=== PATIENT | female | born 1950 | race Caucasian/White ===

== ENCOUNTER → 2016-05-25 | Outpatient (CLI) | payer OTHER ==
--- NOTE | 2016-05-25 10:58 | DX ---
PA and Lateral Chest May 25, 2016 Clinical Indications: Chest monitoring; amiodarone protocol. Comparison to the prior study May 142012. Findings: The heart remains enlarged. Postoperative changes of valvular replacement are seen. There i s mild pulmonary venous hypertension. No significant pleural effusions are identified. Hyperexpansion is seen with flattening of the hemidiaphragms. Basilar opacities bilaterally are presu mably atelectasis. Again noted is a large hiatal hernia. No interstitial fibrotic changes are suspect ed. Impressions 1. Persistent findings of congestive heart failure without pulmonary edema. 2. Hyperexpansion suggests possible COPD. 3. Basilar atelectasis. 4. Large hiatal hernia.
== END ==
LOC: FIMAGING 08:23
PROVIDERS: ATTEND Internal Medicine Cardiovascular Disease
DX: I50.9 Heart failure, unspecified (principal); I51.7 Cardiomegaly; K44.9 Diaphragmatic hernia without obstruction or gangrene; Z95.4 Presence of other heart-valve replacement
CPT/HCPCS: 84481-90

== ENCOUNTER → 2016-07-17 | Outpatient (CLI) | payer OTHER | LOC: BMCIMAGING 13:55 | PROVIDERS: ATTEND Family Medicine | DX: M25.571 Pain in right ankle and joints of right foot (principal); M79.89 Other specified soft tissue disorders ==

== ENCOUNTER → 2016-07-19 | Outpatient (CLI) | payer OTHER | LOC: BMCIMAGING 12:24 | PROVIDERS: ATTEND Family Medicine | DX: R92.0 Mammographic microcalcification found on diagnostic imaging of breast (principal) | CPT/HCPCS: G0206 ==

== ENCOUNTER → 2016-09-06 | Outpatient (CLI) | payer OTHER | LOC: BHLMT 08:30 | PROVIDERS: ATTEND Internal Medicine Interventional Cardiology | DX: I48.91 Unspecified atrial fibrillation (principal) | CPT/HCPCS: 93306-PO ==

== ENCOUNTER → 2016-09-14 | Outpatient (CLI) | payer OTHER | LOC: BHFA 09:30 | PROVIDERS: ATTEND Internal Medicine Cardiovascular Disease | DX: I47.1 Supraventricular tachycardia (principal); I50.41 Acute combined systolic (congestive) and diastolic (congestive) heart failure; I34.0 Nonrheumatic mitral (valve) insufficiency; R53.83 Other fatigue ==

== ENCOUNTER 2016-09-15 11:39 | Day surgery (SDC) | payer OTHER ==
[2016-09-15] MEDS ORDERED: BENZOCAINE UNIT DOSE SPRAY HURRICAINE MM ONE (11:53)
[2016-09-15] MEDS ORDERED: NS 500 ML IV ONE (11:53)
[2016-09-15] MEDS ORDERED: PROPOFOL 200 MG/20 ML VIAL IVP ONE (11:53)
[2016-09-15] MEDS ORDERED: fentaNYL 100 MCG/2 ML INJ IVP ONE (11:53)
[2016-09-15] MEDS ORDERED: MIDAZOLAM 2 MG/2 ML VIAL IVP ONE (11:53)
--- NOTE | 2016-09-15 12:16 | CPEKG ---
Heart Rate: 93 RR Interval: 645 QRSD Interval: 94 QT Interval: 396 QTC Interval: 493 QRS [place]: -3 T Wave [place]: 24 EKG Severity - ABNORMAL ECG - EKG Impression: ATRIAL FIBRILLATION EKG Impression: BORDERLINE PROLONGED QT INTERVAL Electronically Signed By: Juan J Treadwell 15-Sep-2016 16:23:37
[2016-09-15 12:49] LABS: INR 1.94 (0.83-1.16); PROTIME(PATIENT) 22.3 SEC (12.0-15.0)
[2016-09-15 12:50] LABS: APTT 23.6 SEC (23.0-38.0)
[2016-09-15 12:56] LABS: ANION GAP 11 mEq/L (8-16); CARBON DIOXIDE 23 mEq/l (22-31); CHLORIDE 105 mEq/L (97-110); CREATININE 0.8 mg/dL (0.6-1.0); GLOMERULAR FILTRATION RATE > 60; GLUCOSE 146 mg/dL (70-100); MAGNESIUM 1.7 mg/dL (1.6-2.3); POTASSIUM 4.7 mEq/L (3.5-5.2); SODIUM 139 mEq/L (134-144)
[2016-09-15] MEDS ORDERED: LIDOCAINE 2% 5 ML SDV ONE (13:41)
[2016-09-15] MEDS ORDERED: PROPOFOL 200 MG/20 ML VIAL ONE (13:41)
--- NOTE | 2016-09-15 14:16 | CPEKG ---
Heart Rate: 54 RR Interval: 1111 P-R Interval: 200 QRSD Interval: 96 QT Interval: 476 QTC Interval: 452 P [place]: 89 QRS [place]: -3 T Wave [place]: 10 EKG Severity - NORMAL ECG - EKG Impression: SINUS RHYTHM EKG Impression: IN COMPARISON TO PRIOR ECG, NORMAL SINUS RHYTHM HAS REPLACED ATRIAL FIBRILLATION Electronically Signed By: Juan J Treadwell 15-Sep-2016 16:24:09
--- NOTE | 2016-09-15 14:19 | CPR ---
[f rep st] NONINVASIVE CARDIAC PROCEDURE REPORT DATE OF PROCEDURE: 09/15/2016 PROCEDURE PERFORMED: Electrical cardioversion. INDICATIONS: 2:1 atrial tachycardia with increasing fatigue. CONSENT: Signed. Risks, benefits, and alternatives discussed with patient. She wishes to proceed. TECHNICAL DIFFICULTIES: None. MEDICATIONS USED: Propofol IV and fentanyl IV per Anesthesia in conjunction with transesophageal ec ho done immediately beforehand. DESCRIPTION OF PROCEDURE: A transesophageal echo done immediately beforehand demonstrated no eviden ce of clots in any of the 4 cardiac chambers or left atrial appendage. She was in atrial tachycardi a with a 2:1 block and a ventricular rate of 93 beats per minute with a blood pressure of 123/95. W ith adequate sedation and AP pads placed, she received a 250 joule synchronized shock which converte d her to sinus bradycardia at 58 beats per minute. Her post cardioversion blood pressure was 90/58. She awoke from sedation with no new neurological deficits. COMPLICATIONS: None. FINAL IMPRESSIONS: Successful cardioversion of atrial tachycardia to sinus bradycardia with 250 dima le synchronized shock. Copy requested to: Patient chart /[id number]/MODL
[2016-09-15] MEDS ORDERED: LIDOCAINE/PRILOCAINE 1 EACH CRTUBE TP ONE (15:33)
--- NOTE | 2016-09-15 16:20 | ECHO ---
[id number] + + [address] : : [facility] [address] : : [phone] + + Adult Echocardiographic Report + ---+ :Name: RACH AVENDANO LStudy Date: 09/15/2016 01:13 PM : : Hospital Admission Number: [id number] [facility]: :: 1950 Gender: Female : :Age: 66 yrs Race: WH : :Reason For Study: Eval REFUGIO : :History: New onset Atrial Fibrillation, Hx of MVR : + ---+ Left Ventricle Mildly reduced LVEF 45-50%. Right Ventricle The right ventricle is mild to moderately dilated. Atria No left atrial mass or thrombus visualized. No thrombus is detected in the left atrial appendage. The right atrium is mild to moderately dilated. Mitral Valve There is no mitral valve stenosis. There is trace mitral regurgitation. There is a bioprosthetic mitral valve. Tricuspid Valve Mild to moderate TR noted. Aortic Valve The aortic valve opens well. There is no aortic stenosis. Trace aortic regurgitation. Great Vessels The aortic root is normal size. Pericardium/Pleural There is no pericardial effusion. Conclusion A complete two-dimensional transthoracic echocardiogram was performed (2D, M-mode, Doppler and color flow Doppler). 1)Mildly reduced LV systolic function with a LVEF of 45-50%. 2)Mild-moderately enlarged RV with low normal RVEF. 3)Moderate to severe left atrial and moderate right atrial enlargement(s). 4)Trivial AI without . 5)Normal functioning BIOMVR with trivial MR. 6)Mild to moderate TR noted. 7)Probably very small left to right PFO seen on color doppler but negative IV bubble study. 8)Normal size ascending thoracic aorta (2.7cm) with no dissection flap. 9)Probably oversewn REFUGIO with no clots seen in REFUGIO or any of four cardiac chambers. Final Reading Physician: Heladio Dangelo electronically signed on 09/15/2016 04:18 PM Ordering Physician: Heladio Dangelo Performed By: Heladio Dangelo
== END 2016-09-15 16:07 | disposition home or self-care (01) ==
LOC: FCATH 11:39
PROVIDERS: ATTEND Internal Medicine Cardiovascular Disease
DX: I47.1 Supraventricular tachycardia (principal); I48.2 Chronic atrial fibrillation; E66.01 Morbid (severe) obesity due to excess calories; I10 Essential (primary) hypertension; E11.9 Type 2 diabetes mellitus without complications; Z95.2 Presence of prosthetic heart valve; Z79.01 Long term (current) use of anticoagulants
CPT/HCPCS: J2704; J3010

== ENCOUNTER → 2016-10-02 | Outpatient (CLI) | payer OTHER | LOC: BHFA 14:00 | PROVIDERS: ATTEND Internal Medicine Cardiovascular Disease | DX: R07.9 Chest pain, unspecified (principal); R06.02 Shortness of breath; I48.91 Unspecified atrial fibrillation; R94.31 Abnormal electrocardiogram [ECG] [EKG]; I50.9 Heart failure, unspecified ==

== ENCOUNTER → 2016-10-11 | Outpatient (CLI) | payer OTHER | LOC: BHFA 09:30 | PROVIDERS: ATTEND Internal Medicine Cardiovascular Disease | DX: R07.9 Chest pain, unspecified (principal); I48.91 Unspecified atrial fibrillation | CPT/HCPCS: 78452; 93017; A9500; J2785 ==

== ENCOUNTER → 2016-12-13 | Outpatient (CLI) | payer OTHER | LOC: BHFA 15:45 | PROVIDERS: ATTEND Internal Medicine Cardiovascular Disease | DX: I50.32 Chronic diastolic (congestive) heart failure (principal); R06.02 Shortness of breath; Z95.2 Presence of prosthetic heart valve ==

== ENCOUNTER → 2017-01-08 | Outpatient (CLI) | payer OTHER ==
[~2017-01-08] MED LIST: IOPAMIDOL (ISOVUE 370) 100 ML BTL IV ONE
== END ==
LOC: FIMAGING 07:53
PROVIDERS: ATTEND Internal Medicine Cardiovascular Disease
DX: I47.1 Supraventricular tachycardia (principal); I48.91 Unspecified atrial fibrillation; I25.10 Atherosclerotic heart disease of native coronary artery without angina pectoris; R91.8 Other nonspecific abnormal finding of lung field; K44.9 Diaphragmatic hernia without obstruction or gangrene; Z95.4 Presence of other heart-valve replacement
CPT/HCPCS: 75572; Q9967

== ENCOUNTER 2017-01-09 06:39 | Observation (INO) | payer OTHER ==
[2017-01-09] MEDS ORDERED: NS 1,000 ML IV ONE (06:45)
[2017-01-09] MEDS ORDERED: MIDAZOLAM 2 MG/2 ML VIAL IVP ONE ×2 (06:45→08:30)
--- NOTE | 2017-01-09 07:15 | CPEKG ---
Heart Rate: 68 RR Interval: 882 P-R Interval: 180 QRSD Interval: 90 QT Interval: 424 QTC Interval: 451 P [place]: 65 QRS [place]: -7 T Wave [place]: 72 EKG Severity - BORDERLINE ECG - EKG Impression: SINUS RHYTHM EKG Impression: BORDERLINE T WAVE ABNORMALITIES Electronically Signed By: Moi Velasquez 09-Jan-2017 08:20:13
[2017-01-09] MEDS ORDERED: HEPARIN/DEXTROSE 25,000 UNIT/500 ML BAG ONE (07:35)
[2017-01-09] MEDS ORDERED: LIDOCAINE 1% 300 MG/30 ML SDV ONE (07:35)
[2017-01-09] MEDS ORDERED: HEPARIN 10,000 UNIT/10 ML MDV ONE (07:35)
[2017-01-09] MEDS ORDERED: BUPIVACAINE 0.5% 30 ML SDV ONE (07:35)
[2017-01-09 07:49] LABS: INR 1.78 (0.83-1.16); PROTIME(PATIENT) 20.8 SEC (12.0-15.0)
[2017-01-09 07:50] LABS: APTT 26.6 SEC (23.0-38.0)
[2017-01-09] MEDS ORDERED: IOPAMIDOL (ISOVUE-300) 100 ML BTL ONE (07:57)
[2017-01-09 08:01] LABS: ANION GAP 14 mEq/L (8-16); CALCIUM 9.5 mg/dL (8.5-10.4); CARBON DIOXIDE 22 mEq/l (22-31); CHLORIDE 105 mEq/L (97-110); CREATININE 0.8 mg/dL (0.6-1.0); GLOMERULAR FILTRATION RATE > 60; GLUCOSE 165 mg/dL (70-100); MAGNESIUM 1.7 mg/dL (1.6-2.3); POTASSIUM 3.9 mEq/L (3.5-5.2); SODIUM 141 mEq/L (134-144)
--- NOTE | 2017-01-09 08:24 | PDHPUP ---
History & Physical Update H&P update statement: This history and physical update is based on an assessment of the patient which was completed after admission or registration (within 24 hours), but prior to the surgery/procedure.
[2017-01-09 08:30] VITALS: TEMP 97.7
--- NOTE | 2017-01-09 08:30 | PDANEPAE ---
ANE History of Present Illness 66 yo for eps/ablation ANE Past Medical History - Cardiovascular History Hx Hypertension: Yes Hx Arrhythmias: Yes Hx Chest Pain: Yes Hx Coronary Artery / Peripheral Vascular Disease: No Hx CHF / Valvular Disease: Yes Hx Palpitations: No - Pulmonary History Hx COPD: No Hx Asthma/Reactive Airway Disease: No Hx Recent Upper Respiratory Infection: No Hx Oxygen in Use at Home: Yes Hx Sleep Apnea: Yes - Endocrine History Hx Diabetes: Yes - Chronic Pain History Chronic Pain: No ANE Review of Systems - Exercise capacity METS (RN): 2 METS ANE Patient History - Allergies Allergies/Adverse Reactions: No Known Allergies Allergy (Unverified 04/24/15 20:47) - Home Medications Home medications: home medication list seen and reviewed Home Medications: Estradiol [Estradiol 1 MG (*)] 1 mg PO MWF 04/19/15 [Last Taken 01/08/17] Carvedilol [Coreg (*)] 12.5 mg PO BID 09/15/16 [Last Taken 01/08/17 21:00] Warfarin Sodium [Coumadin 2.5MG (*)] 2.5 mg PO TUTH@16 09/15/16 [Last Taken ] Warfarin Sodium [Coumadin 5MG (*)] 5 mg PO SUMOWEFRSA@16 09/15/16 [Last Taken ] Acetaminophen [Tylenol ES 500 mg (*)] 1,500 mg PO Q6HRS PRN 01/09/17 [Last Taken Unknown] Acetamn/Diphenhydramine 500/25 [Tylenol PM (*)] 1 each PO HS PRN 01/09/17 [Last Taken Unknown] Amiodarone HCl [Pacerone (*)] 200 mg PO DAILY 01/09/17 [Last Taken 01/02/17] Furosemide [Lasix 40 MG (*)] 40 mg PO DAILY PRN 01/09/17 [Last Taken 01/08/17] Lisinopril [Zestril 5 mg (*)] 5 mg PO DAILY 01/09/17 [Last Taken 01/08/17] metFORMIN HCL [Glucophage 500 mg (*)] 1,000 mg PO DAILY 01/09/17 [Last Taken ] metFORMIN HCL [Glucophage 500 mg (*)] 500 mg PO DAILY18 01/09/17 [Last Taken ] - NPO status NPO Status: no food or drink >8 hours - Smoking Hx Smoking Status: Never smoked ANE Labs/Vital Signs - Labs Result Diagrams: 01/09/17 07:18 01/09/17 07:18 - Vital Signs Height: 5 ft 4.96 in Weight: 115.7 kg ANE Physical Exam - Airway Neck exam: FROM Mallampati Score: Class 2 Mouth exam: normal dental/mouth exam - Pulmonary Pulmonary: reduced air movement - Cardiovascular Cardiovascular: regular rate and rhythym - ASA Status ASA Status: III ANE Anesthesia Plan Anesthesia Plan: general endotracheal anesthesia Lines/Monitors: ANGEL
[2017-01-09] MEDS ORDERED: fentaNYL 100 MCG/2 ML INJ ONE (08:41)
[2017-01-09] MEDS ORDERED: REMIFENTANIL HCL 1 MG VIAL ONE ×2 (08:41→10:37)
[2017-01-09] MEDS ORDERED: PROPOFOL/EMULSION 500 MG/50 ML BOTTLE IV ONE ×2 (08:42→10:37)
[2017-01-09 09:59] LABS: % IMMATURE GRANULYOCYTES 0.2 % (0.0-1.1); ABSOLUTE IMMATURE GRANULOCYTES 0.01 10^3/uL (0.00-0.10); ADD DIFF? NO; ADD MORPH? NO; ADD SCAN? NO; ATYPICAL LYMPHOCYTE FLAG 0 (0-99); FRAGMENT RBC FLAG 0 (0-99); HEMATOCRIT 37.1 % (38.0-47.0); HEMOGLOBIN 12.4 g/dL (12.6-16.3); LEFT SHIFT FLG 0 (0-99); LIPEMIA HEMOLYSIS FLAG 80 (0-99); MEAN CELL HEMOGLOBIN 30.2 pg (27.9-34.1); MEAN CELL HEMOGLOBIN CONCENTR. 33.4 g/dL (32.4-36.7); MEAN CELL VOLUME 90.3 fL (81.5-99.8); MEAN PLATELET VOLUME 10.9 fL (8.7-11.7); PLATELET CLUMPS FLAG 10 (0-99); PLATELET COUNT 128 10^3/uL (150-400); RED BLOOD CELL COUNT 4.11 10^6/uL (4.18-5.33); RED CELL DISTRIBUTION WIDTH 14.3 % (11.5-15.2)
[2017-01-09] MEDS ORDERED: PROTAMINE SULFATE 50 MG/5 ML VIAL IVP ONE (12:33)
[2017-01-09] MEDS ORDERED: SUGAMMADEX SODIUM 200 MG/2 ML VIAL IVP ONE (12:35)
[2017-01-09] MEDS ORDERED: ROCURONIUM 100 MG/10 ML VIAL ONE (12:35)
[2017-01-09] MEDS ORDERED: OXYCODONE/APAP 5/325 TAB PO PRN (12:40)
[2017-01-09] MEDS ORDERED: ACETAMINOPHEN 325 MG TAB PO PRN (12:40)
[2017-01-09] MEDS ORDERED: ONDANSETRON 4 MG/2 ML VIAL IVP PRN (12:40)
[2017-01-09] MEDS ORDERED: FUROSEMIDE 40 MG TAB PO PRN (12:42)
[2017-01-09] MEDS ORDERED: D50W 25 GM/50 ML SYR IVP PRN (13:33)
[2017-01-09] MEDS ORDERED: D10W 250 ML PRN HYPOGLYCEMIA IV (14:00)
--- NOTE | 2017-01-09 14:17 | GCON ---
[f rep st] CONSULTATION HISTORY OF PRESENT ILLNESS: Patient examined postoperatively after receiving an ablation. The patient is a 66-year-old white female with extensive past medical history, including arthritis, coronary artery disease, mitral valve repair with a bovine valve back in 2007, tricuspid valve repai r, hyperlipidemia, morbid obesity, hypertension, diabetes, and fibromyalgia. She is examined postop eratively after receiving a cardiac ablation. Patient somewhat groggy from anesthetic. I discussed with the patient. She states that she is not currently in any pain. She any denies shortness of b reath, cough, or productive sputum. There is no fever or night sweats. Currently, she is resting c omfortably. PAST MEDICAL HISTORY: Again, significant for atrial fibrillation, arthritis, coronary artery diseas e, hyperlipidemia, morbid obesity, hypertension, diabetes, and fibromyalgia. PAST SURGICAL HISTORY: Cholecystectomy, bilateral total knee arthroplasties, mitral valve replaceme nt, hysterectomy, and a tricuspid valve repair. ALLERGIES: None known to medications. SOCIAL HISTORY: No history of tobacco use. Infrequent alcohol use. PHYSICAL EXAMINATION: VITAL SIGNS: Blood pressure is 124/73, pulse is 53 respirations are 13. She is afebrile. Oxygen saturation 95% on supplemental oxygen. GENERAL: A morbidly obese but very pl easant elderly white female who is resting comfortably in no acute distress. HEENT: PERRLA. EOMI. Throat shows no erythema or tonsillar hypertrophy. NECK: Supple. There is no cervical adenopath y. HEART: Regular rate and rhythm with a 2/6 systolic murmur at left sternal border without radiat ion. LUNGS: Diminished breath sounds but no wheeze. ABDOMEN: Soft, nontender. Bowel sounds pres ent in all 4 quadrants. EXTREMITIES: No clubbing, cyanosis, or edema. LABORATORIES: White count 4.4, hemoglobin 12, hematocrit 37, and platelet count is 128. INR is 1.7 8. Sodium 141, potassium 3.9, chloride 105, CO2 22, BUN 22, creatinine 0.8, and glucose 165. IMPRESSION: 1. Status post cardiac ablation. 2. History of atrial fibrillation. 3. Morbid obesity. 4. Obstructive sleep apnea. 5. Hyperlipidemia. 6. Hypertension. 7. Diabetes. RECOMMENDATIONS: 1. Adequate pain control. 2. DVT and PE prophylaxis. 3. Stress ulcer prophylaxis. 4. Aggressive blood sugar control. /[id number]/MODL
--- NOTE | 2017-01-09 14:23 | CPEKG ---
Heart Rate: 104 RR Interval: 577 QRSD Interval: 92 QT Interval: 344 QTC Interval: 453 QRS [place]: 23 T Wave [place]: 110 EKG Severity - ABNORMAL ECG - EKG Impression: JUNCTIONAL TACHYCARDIA EKG Impression: LOW VOLTAGE IN FRONTAL LEADS EKG Impression: NONSPECIFIC T ABNORMALITIES, LATERAL LEADS Electronically Signed By: Shlomo Reis 09-Jan-2017 14:51:33
--- NOTE | 2017-01-09 14:45 | POSTANESTH ---
Post Anesthetic Evaluation Cardiovascular Status: Normal, Stable Respiratory Status: Normal, Stable, Tx Decrease in SpO2 Level of Consciousness/Mental Status: Can Participate in Eval Pain Control: Adequate, Prn Tx Ordered Nausea/Vomiting Control: Adequate, Prn Tx Ordered
[2017-01-09 15:10] LABS: ANION GAP 10 mEq/L (8-16); CALCIUM 9.7 mg/dL (8.5-10.4); CARBON DIOXIDE 22 mEq/l (22-31); CHLORIDE 108 mEq/L (97-110); CREATININE 0.7 mg/dL (0.6-1.0); GLOMERULAR FILTRATION RATE > 60; GLUCOSE 171 mg/dL (70-100); MAGNESIUM 1.5 mg/dL (1.6-2.3); POTASSIUM 4.1 mEq/L (3.5-5.2); SODIUM 140 mEq/L (134-144)
[2017-01-09] MEDS ORDERED: PROTOCOL MAGNESIUM 1 DOSE IV PRN (15:27)
[2017-01-09] MEDS ORDERED: MAGNESIUM SULF 1 GM/DEXTROSE 100 ML IV ONE (15:28)
[2017-01-09] MEDS ORDERED: WARFARIN SODIUM 2.5 MG TAB PO SCH (16:00)
--- NOTE | 2017-01-09 16:01 | ASMTCASEMG ---
Living Arrangements What is your living arrangement? Who do you live Answers: With Spouse with? Case Management Evaluation Functional: ADL / IADL Performance Deficits Due Answers: Chronic Illness to: Mobility Issues Discharge Plan Comments Coordination Status Comments Notes: 66yo female admitted for Afib/Ablation. Pt has a Hx of Afib, CAL, HLD, HTN, DM, CAD, Fibromyalgia, TVR, MVR, Obesity. Pt lives w/her . Usually people who come in for Ablations are able to return home the next day. Pt has not yet been out of bed, unable to assess her needs at this time. Date Signed: 01/09/2017 04:00 PM Electronically Signed By:Zandra Pollack
[2017-01-09 16:06] VITALS: RESP 26; O2SAT 95
[2017-01-09] MEDS ORDERED: ENOXAPARIN 100 MG/ML SYR SC SCH (19:00)
[2017-01-09] MEDS: ENOXAPARIN 120 MG/0.8 ML SYR SC SCH (20:02)
[2017-01-09] MEDS: CARVEDILOL 6.25 MG TAB PO SCH (20:03)
[2017-01-09] MEDS: INSULIN REGULAR HUMAN 100 UNIT/ML SC SCH ×3 (20:03→22:34)
[2017-01-10 05:10] LABS: % IMMATURE GRANULYOCYTES 0.4 % (0.0-1.1); ABSOLUTE IMMATURE GRANULOCYTES 0.04 10^3/uL (0.00-0.10); ADD DIFF? NO; ADD MORPH? NO; ADD SCAN? NO; ATYPICAL LYMPHOCYTE FLAG 0 (0-99); FRAGMENT RBC FLAG 0 (0-99); HEMATOCRIT 39.8 % (38.0-47.0); HEMOGLOBIN 13.3 g/dL (12.6-16.3); LEFT SHIFT FLG 0 (0-99); LIPEMIA HEMOLYSIS FLAG 80 (0-99); MEAN CELL HEMOGLOBIN 30.5 pg (27.9-34.1); MEAN CELL HEMOGLOBIN CONCENTR. 33.4 g/dL (32.4-36.7); MEAN CELL VOLUME 91.3 fL (81.5-99.8); PLATELET CLUMPS FLAG 20 (0-99); PLATELET COUNT 139 10^3/uL (150-400); RED BLOOD CELL COUNT 4.36 10^6/uL (4.18-5.33); RED CELL DISTRIBUTION WIDTH 14.2 % (11.5-15.2)
[2017-01-10 05:19] LABS: INR 1.84 (0.83-1.16); PROTIME(PATIENT) 21.3 SEC (12.0-15.0)
[2017-01-10 05:26] LABS: ANION GAP 9 mEq/L (8-16); CALCIUM 9.4 mg/dL (8.5-10.4); CARBON DIOXIDE 24 mEq/l (22-31); CHLORIDE 104 mEq/L (97-110); CREATININE 0.8 mg/dL (0.6-1.0); GLOMERULAR FILTRATION RATE > 60; GLUCOSE 157 mg/dL (70-100); MAGNESIUM 1.7 mg/dL (1.6-2.3); POTASSIUM 4.1 mEq/L (3.5-5.2); SODIUM 137 mEq/L (134-144)
[2017-01-10 05:35] LABS: TROPONIN I 0.379 ng/mL (0.000-0.034)
[2017-01-10 05:42] LABS: CK-MB INTERPRETATION POSITIVE (NEGATIVE); CREATINE KINASE-MB FRACTION 3.77 ng/mL (0.00-3.19)
[2017-01-10] MEDS ORDERED: LOPERAMIDE HCL 2 MG CAP PO ONE (07:15)
[2017-01-10] MEDS ORDERED: ESTRADIOL 1 MG TAB PO SCH (08:00)
[2017-01-10] MEDS: ENOXAPARIN 120 MG/0.8 ML SYR SC SCH (08:07)
[2017-01-10] MEDS: CARVEDILOL 6.25 MG TAB PO SCH (08:07)
[2017-01-10 08:08] VITALS: BP 98/67; PULSE 59
[2017-01-10] MEDS: INSULIN REGULAR HUMAN 100 UNIT/ML SC SCH ×2 (08:08→12:33)
[2017-01-10] MEDS ORDERED: MAGNESIUM SULF 1 GM/DEXTROSE 100 ML IV ONE (08:33)
--- NOTE | 2017-01-10 08:53 | PDINTPN ---
[employer] Progress Note Assessment/Plan: Assessment: * Atrial fib * Status post ablation * Diabetes * Hypertension * Obstructive sleep apnea Plan: Continue aggressive blood sugar control Anticipate discharge home soon Subjective: Resting comfortably. Objective: Vital Signs Temp Pulse Resp BP Pulse Ox 36.5 C 59 L 26 H 98/67 L 95 01/09/17 07:17 01/10/17 08:07 01/09/17 16:04 01/10/17 08:07 01/09/17 16:04 Laboratory Results 01/10/17 04:50 01/10/17 04:50 01/09/17 01/10/17 01/11/17 05:59 05:59 05:59 Intake Total 2600 Output Total 1100 Balance 1500 PT 21.3 SEC (12.0-15.0) H 01/10/17 04:50 INR 1.84 (0.83-1.16) H 01/10/17 04:50 Physical Exam - Physical Exam General Appearance: alert, no apparent distress EENT: PERRL/EOMI, normal ENT inspection, pharynx normal, TMs normal Neck: non-tender, full range of motion, supple, normal inspection Respiratory: chest non-tender, lungs clear, normal breath sounds Cardiac/Chest: normal peripheral pulses, regular rate, rhythm Abdomen: normal bowel sounds, non-tender, soft Pelvic Exam: deferred Rectal: deferred ICD10 Worksheet Patient Problems: Problems Problem Status Onset Chronic Disease [facility]/Transitional Care Acute Gastric ulcer with hemorrhage but without obstruction Acute
[2017-01-10] MEDS ORDERED: LISINOPRIL 5 MG TAB PO SCH (09:00)
[2017-01-10] MEDS ORDERED: AMIODARONE HCL 200 MG TAB PO SCH (09:00)
--- NOTE | 2017-01-10 09:35 | CPEKG ---
Heart Rate: 67 RR Interval: 896 P-R Interval: 210 QRSD Interval: 92 QT Interval: 460 QTC Interval: 486 P [place]: 0 QRS [place]: -8 T Wave [place]: 73 EKG Severity - BORDERLINE ECG - EKG Impression: SINUS RHYTHM EKG Impression: BORDERLINE T WAVE ABNORMALITIES Electronically Signed By: Moi Velasquez 10-Jan-2017 10:59:28
--- NOTE | 2017-01-10 11:32 | ECHO ---
[id number] [id number] + + [address] : : [place] [address] : : [phone] + + Adult Echocardiographic Report + ---+ :Name: RACH AVENDANO LStudy Date: 01/10/2017 08:36 AM : : Hospital Admission Number: [id number] Location: 256: :: 1950 Gender: Female Height: 65 in : :Age: 66 yrs Race: WH Weight: 255 lb : :Reason For Study: F/U EP : : BSA: 2.2 meters2 : :History: s/p EP h/o MVR : + ---+ MMode/2D Measurements \T\ Calculations IVSd: 0.99 cm LVIDd: 4.6 cm FS: 26.7 % Ao root diam: LVPWd: 0.99 cm LVIDs: 3.4 cm EDV(Teich): 3.0 cm 96.7 ml ESV(Teich): 46.1 ml EF(Teich): 52.3 % LVLd ap4: 8.7 cm SV(MOD-sp4): EDV(MOD-sp4): 82.0 ml 122.0 ml LVLs ap4: 7.2 cm ESV(MOD-sp4): 40.0 ml EF(MOD-sp4): 67.2 % Normal Measurement Values: + + :LVIDd (3.5-5.7cm) IVSd (0.6-1.1cm) LVPWd (0.6-1.1cm) Aortic Root (2.0-3.7cm)Left Atrium (1.5-4.0cm): :LV Vol(d) (76-115ml) LV Vol(s) (29-48ml) Ejec Fraction (50-65%)PV Carlos (0.6- 1.2m/s) TV Carlos (0.4-1.0m/s) : :MV E Carlos (0.8-1.0m/s)MV A Carlos (0.3-1.0m/s)LVOT Carlos (0.7-1.2m/s) Asc Ao Carlos ( 0.9-1.8m/s) : + + Doppler Measurements \T\ Calculations MV V2 max: MV P1/2t max carlso: Ao V2 max: LV V1 max: 194.9 cm/sec 194.9 cm/sec 170.6 cm/sec 110.6 cm/sec MV max PG: MV P1/2t: 111.4 msec Ao max PG: LV V1 max P.2 mmHg MVA(P1/2t): 2.0 cm2 11.6 mmHg 4.9 mmHg MV V2 mean: MV dec slope: 103.7 cm/sec MV mean P.4 cm/sec2 5.4 mmHg MV V2 VTI: 61.4 cm PA V2 max: TR max carlos: 100.4 cm/sec 314.9 cm/sec PA max PG: TR max P.7 mmHg 4.0 mmHg RAP systole: 10.0 mmHg RVSP(TR): 49.7 mmHg Left Ventricle The left ventricle is normal in size. There is normal left ventricular wall thickness. Left ventricular systolic function is low normal. Ejection Fraction = 50-55%. Right Ventricle Right ventricle is dilated wtih reduced function. Atria The left atrium is moderately dilated. The right atrium is moderately dilated. A dilated inferior vena cava suggests increased right atrial pressure. There was no clot seen in the IVC. Mitral Valve There is no mitral regurgitation noted. There is a prosthetic mitral valve. Mean gradient across the MVR 5mmHg. Tricuspid Valve The tricuspid valve is normal in structure and function. There is moderate tricuspid regurgitation. Right ventricular systolic pressure is 50mmHg. There is Doppler evidence for moderate pulmonary hypertension. Aortic Valve The aortic valve is trileaflet. There is no aortic stenosis. Trace to mild aortic regurgitation. Pulmonic Valve The pulmonic valve is not well visualized. Great Vessels The aortic root is normal size. Pericardium/Pleural There is no pericardial effusion. Conclusion A two-dimensional transthoracic echocardiogram with M-mode and Doppler was performed. (1) Left ventricular systolic ejection fraction was low normal (50-55%) - grossly normal wall motion (2) No left ventricular hypertrophy (3) Diastolic function was not assessed (4) Mild dilation of the right ventricular chamber with reduced function noted (5) Moderate biatrial dilation (6) Prosthetic mitral valve without appreciable regurgitation - mean gradient was 5 mm Hg (7) Trileaflet aortic valve with physiologic insufficiency, and no sclerosis (8) Moderate tricuspid regurgitation - RVSP was estimated to be 50 mm Hg (9) Poor visualization of the pulmonic valve (10) In comparison to prior echocardiogram there has been improvement in LVEF (from 45% to 50-55%) and unchanged gradient through the mitral valve. Final Reading Physician: Danuta Darnell signed on 01/10/2017 11:29 AM Ordering Physician: Moi Velasquez Performed By: Sanjana Maguire
--- NOTE | 2017-01-10 13:34 | EPPROC ---
Electrophysiology Procedure Note: PROCEDURE DATE 01/09/2017 ELECTROPHYSIOLOGIC STUDY AND CATHETER MEDIATED ABLATION FOR PERSISTENT ATRIAL FIBRILLATION Procedures performed: 42719-77 EP evaluation with RA/RV/LA pace/record, with arrhythmia induction 69216-25 EP evaluation with RA/RV pace record, insert/reposition catheter, with arrhythmia induction 53619 Atrial fibrillation ablation 38428 3D mapping Intracardiac echocardiogram Transseptal puncture Fluoroscopy INDICATION: Persistent atrial fibrillation Prior surgical PV isolation with MV replacement TV repair PROCEDURE: The patient arrived in the Electrophysiology Laboratory in the fasting state. The right groin, left groin and right infraclavicular area were prepped and draped in the usual sterile fashion. Anesthesiologist administered general anesthesia Dr. Trace Baldwin . All catheters were placed percutaneously using the Seldinger technique and advanced into position under fluoroscopic guidance. One #7 Eritrean deflectable octapolar electrode catheter was placed in the His-bundle position via the left femoral vein (2mm spacing, IVC electrode for unipolar recordings). This catheter was placed in the coronary sinus after transseptal puncture. One #8 [place] AcuNaV ultrasound catheter was placed in the left femoral vein and advanced into the right atrium. One #4 [place]an sheath was inserted into the left femoral artery via percutaneous technique and used for continuous arterial blood pressure monitoring and intermittent ACT determination. Programmed stimulation was performed from the right atrium, left atrium (CS) and right ventricle. There was no evidence of AV accessory pathway. Intracardiac echo evaluation of the left atrium and pulmonary veins was performed. Baseline ACT was drawn and heparin bolus was administered and heparin drip was started prior to transseptal puncture. ACT was checked every 15 minutes and maintained in the range of 350-400 seconds. One SL1 sheaths (8.5 Fr ) was inserted into the right femoral vein and advanced into the right atrium. Transseptal puncture was performed under intracardiac ultrasound, fluoroscopic and hemodynamic guidance placing the sheath into the left atrium. Walnut RF needle (C0 curve) was used. The mean left atrial pressure was 22 mmHg. At baseline, the rhythm was sinus rhythm. Conventional pulmonary vein angiography was done using SL1 sheaths. PV anatomy : LSPV, LIPV, RSPV, RIPV. High resolution voltage map of the left atrium and all 4 PV was performed using Pentaray catheter. RSPV and RIPV were isolated from surgical ablation. LSPV and LIPV were not isolated. One #8 [place] quadrapolar electrode catheter (1mm-5mm-2mm spacing) with saline irrigated 3.5mm tip electrode (BiosVerimed ST-SF catheter) and location sensor for the [employer] 3D mapping system was inserted through the transseptal sheath and positioned outside the orifice of the left superior pulmonary vein. An esophageal temperature probe (12 electrode, Circa) was placed by the anesthesiologist at the beginning of the procedure. Esophageal temperature was monitored continuously and RF ablation was interrupted if there was a temperature rise >0.5 C. The esophagus was closer to the LSPV. The antrum of the left pulmonary veins was then isolated by radiofrequency applications (power 20-25 W). Ablation needed to be performed both anterior and posterior to LSPV and LIPV. Bidirectional (entrance and exit) conduction block was confirmed. Repeat high resolution mapping done using Pentaray catheter confirmed LSPV and LIPV were isolated. Left AT, CL 300 was induced post AFIB ablation. We began mapping left AT but it degenerated into AFIB. Cardioversion was done x 2 and attempt to induce and map left AT was done but in each instance AT degenerated into AFIB. Further mapping and ablation was not done. The catheters were withdrawn. SL1 sheaths were changed to 9 Fr short sheaths. Protamine was given. The sheaths were removed and manual pressure was used for hemostasis. The patient was recovered from anesthesia. There were no complications. CONCLUSIONS: 1. Persistent atrial fibrillation. 2. Prior mitral valve replacement and surgical PV isolation. 3. Successful pulmonary vein re-isolation procedure (left superior and left inferior vein antrum) 4. Left AT could not be targeted for mapping and ablation. 5. No apparent complications. Patient Problems: Problems Problem Status Onset Atrial fibrillation Acute Gastric ulcer with hemorrhage but without obstruction Acute Chronic Disease Mgmt/Transitional Care Acute
[2017-01-10] MEDS ORDERED: WARFARIN SODIUM 5 MG TAB PO SCH (16:00)
--- NOTE | 2017-01-10 23:53 | GDS ---
[f rep st] DISCHARGE SUMMARY DISCHARGE DIAGNOSES: 1. Paroxysmal atrial fibrillation, status post ablation. 2. Atrial tachycardia. 3. Diabetes. 4. Hypertension. 5. Nonobstructive coronary artery disease. 6. Valvular heart disease. 7. Obstructive sleep apnea. BRIEF HISTORY: This is a 66-year-old woman who was referred to Dr. Velasquez by Dr. Dangelo for treatment of paroxysmal atrial fibrillation and atrial tachycardia. She has a history of sternotomy with bioprosthetic mitral valve replacement as well as a tricuspid valve repair and a maze in 2008. She presented in atrial fibrillation with cardiomyopathy in 2014. She continued to have PAF while taking amiodarone regularly. She had mild to moderate CAD by angiogram in April 2015. Echocardiogram in August of 2016 demonstrated ejection fraction of 43%. HOSPITAL COURSE: Dr. Velasquez performed an atrial fibrillation ablation by isolating the left pulmonary veins. Her atrium are scarred from prior maze procedure. She did have a left atrial tachycardia and atrial fibrillation post ablation. She did convert to sinus rhythm during the night. She did have a number of episodes of diarrhea during the night requiring her to get up and out of bed. She has not had any bleeding at her groin site. She denies any kind of chest pain, pressure, tightness or shortness of breath. She is currently feeling well and ready to go home. TESTING DONE: On 01/08/2017, she had a chest CT that demonstrated scattered benign pulmonary nodules that had been seen previously and are stable. Coronary artery disease in the LAD noted previously. A large hiatal hernia containing the majority of the stomach that had also been noted previously. No change from prior CT. Echocardiogram today demonstrated LVEF of 50% to 55%, moderate biatrial dilatation and a prosthetic mitral valve without any significant regurgitation. There is moderate tricuspid regurgitation. Consults: She was seen by Dr. Arredondo of pulmonary service. LABORATORY: WBC is 9.12, hemoglobin 13.3, hematocrit 39.8, platelets 139. PT 21.3. INR is 1.84. Sodium 137, potassium 4.1, chloride 104, bicarb 24, BUN 18 , creatinine 0.8 and glucose 151. Magnesium 1.7. CK 58. CK-MB fraction 3.77. CK-MB percent 6.5. Troponin is 0.379, which is elevated and to be expected post ablation. PHYSICAL EXAMINATION: VITAL SIGNS: Blood pressure is 98/67, pulse is 59, respirations 16. GENERAL: She is alert and oriented, sitting up in bed, in no acute distress. CARDIAC: Regular rate and rhythm with a 1/6 systolic ejection murmur at the left sternal border. LUNGS: Bilateral crackles. ABDOMEN: Soft and nontender. EXTREMITIES: Warm. There is bilateral discoloration that has been chronic. Mild lower extremity edema. Bilateral +2 pedal pulses. DISCHARGE INSTRUCTIONS: Activity restrictions were discussed with the patient. She received written instructions. Of note, she is not to horseback ride for [address] Velasquez. She was also instructed to use the incentive spirometer regularly for the next few days. MEDICATIONS: Please see medication discharge reconciliation. Of note, she will take a Lovenox shot with her warfarin tonight. She has an INR scheduled at 7 in the morning. She can stop Lovenox when her INR is 2 or greater, which will likely be tomorrow. She was instructed to hold metformin until Sunday morning. She is also to take Nexium 20 mg daily for 6 weeks post ablation. FOLLOWUP: She has a followup 01/24/2017, with Dr. Velasquez at 4 p.m. /[id number]/MODL MTDD
== END 2017-01-10 12:59 | disposition home or self-care (01) ==
LOC: FCATH 06:39 → F2N 12:40
PROVIDERS: ADMIT Internal Medicine Cardiovascular Disease; ATTEND Internal Medicine Cardiovascular Disease
DX: I48.1 Persistent atrial fibrillation (principal); I47.1 Supraventricular tachycardia; R06.02 Shortness of breath; E11.9 Type 2 diabetes mellitus without complications; I11.0 Hypertensive heart disease with heart failure; I25.10 Atherosclerotic heart disease of native coronary artery without angina pectoris; G47.33 Obstructive sleep apnea (adult) (pediatric); I42.9 Cardiomyopathy, unspecified; I50.32 Chronic diastolic (congestive) heart failure; E78.5 Hyperlipidemia, unspecified; R19.7 Diarrhea, unspecified; R91.1 Solitary pulmonary nodule; K44.9 Diaphragmatic hernia without obstruction or gangrene; I36.1 Nonrheumatic tricuspid (valve) insufficiency; M79.7 Fibromyalgia; Z95.2 Presence of prosthetic heart valve; E66.2 Morbid (severe) obesity with alveolar hypoventilation; Z68.41 Body mass index [BMI] 40.0-44.9, adult; Z96.653 Presence of artificial knee joint, bilateral; Z79.01 Long term (current) use of anticoagulants
CPT/HCPCS: 93005; 93306; 93613; 93656; 93662; C1731; C1732; C1759; C1893; J1644; J1650; J1815; J2250; J2704; J2720; J3010; J3475; Q9967

== ENCOUNTER 2017-01-11 07:17 | Inpatient (IN) | payer OTHER ==
[2017-01-11 08:06] LABS: % IMMATURE GRANULYOCYTES 0.4 % (0.0-1.1); ABSOLUTE IMMATURE GRANULOCYTES 0.03 10^3/uL (0.00-0.10); ADD DIFF? NO; ADD MORPH? NO; ADD SCAN? NO; ATYPICAL LYMPHOCYTE FLAG 0 (0-99); FRAGMENT RBC FLAG 0 (0-99); HEMATOCRIT 40.8 % (38.0-47.0); HEMOGLOBIN 13.6 g/dL (12.6-16.3); LEFT SHIFT FLG 0 (0-99); LIPEMIA HEMOLYSIS FLAG 80 (0-99); MEAN CELL HEMOGLOBIN 30.2 pg (27.9-34.1); MEAN CELL HEMOGLOBIN CONCENTR. 33.3 g/dL (32.4-36.7); MEAN CELL VOLUME 90.7 fL (81.5-99.8); MEAN PLATELET VOLUME 10.6 fL (8.7-11.7); PLATELET CLUMPS FLAG 20 (0-99); PLATELET COUNT 147 10^3/uL (150-400); RED CELL DISTRIBUTION WIDTH 14.6 % (11.5-15.2)
[2017-01-11] MEDS ORDERED: ONDANSETRON 4 MG/2 ML VIAL IVP ONE (08:08)
[2017-01-11] MEDS ORDERED: NS 1,000 ML IV ONE (08:08)
--- NOTE | 2017-01-11 08:09 | EDPHY ---
H & P Stated Complaint: ablation 2 days ago-on lovenox, having bloody diarrhea and nausea Time Seen by Provider: 01/11/17 08:00 HPI/ROS: Chief Complaint: Diarrhea, abdominal cramping HPI: 66-year-old woman who is 2 days status post cardiac ablation for atrial fibrillation by Dr. Velasquez. Follow-up lesions patient started developing diarrhea. She has been having diarrhea for the last 2 days. She had pneumonia in yesterday morning was discharged home after that. She is continuing to have some crampy abdominal pain. She also having some nausea but no vomiting. Cramping associated prior to her episodes of diarrhea. This morning she noticed that there is some pink color to the liquid. Has not had any vikas blood or clots. Does have a history of GI bleeding in the past and has required transfusions before. She states that this morning she has had 5 episodes of diarrhea between 2 and 5. Continues to have cramping prior to these and is relieved with that. No rectal pain. No fevers or chills. No chest pain or shortness of breath. She has been able to eat since her discharge. PMH: ROS: 10 point Review of Systems is negative except as noted in the HPI. Past medical history: Atrial fibrillation, type 2 diabetes, GI bleeding in the past Social History: No smoking, no alcohol, no recreational drug use Family History: non-contributory Physical Exam: Gen: Awake, Alert, No Distress HEENT: Nose: no rhinorrhea Eyes: PERRLA, EOMI Mouth: Moist mucosa Neck: Supple, no JVD Chest: nontender, lungs clear to auscultation Heart: S1, S2 normal, no murmur Abd: Soft, non-tender, no guarding Back: no CVA tenderness, no midline tenderness Ext: no edema, non-tender Skin: no rash Neuro: CN II-XII intact, Sensation grossly intact, Strength 5/5 in bilateral upper and lower extremities - Personal History Tetanus Vaccine Date: < 5 years - Medical/Surgical History Hx Asthma: No Hx Chronic Respiratory Disease: No Hx Diabetes: Yes Hx Cardiac Disease: Yes Hx Renal Disease: No Hx Cirrhosis: No Hx Alcoholism: No Hx HIV/AIDS: No Hx Splenectomy or Spleen Trauma: No Other PMH: afib, arthritis, CAD, MVR, TVR, hyperlipidemia, obesity, HTN, DM, fibromyalgia, cholecystectomy, bilateral TKA, hysterectomy, GIB, anemia, CHF. sleep apnea. - Social History Smoking Status: Never smoked Constitutional: Initial Vital Signs Temperature (C) 36.7 C 01/11/17 07:20 Heart Rate 79 01/11/17 07:20 Respiratory Rate 20 01/11/17 07:20 Blood Pressure 126/88 H 01/11/17 07:20 O2 Sat (%) 89 L 01/11/17 07:20 O2 Delivery Mode Room Air Allergies/Adverse Reactions: No Known Allergies Allergy (Unverified 04/24/15 20:47) Home Medications: Medication Instructions Recorded Estradiol [Estradiol 1 MG (*)] 1 mg PO MWF 04/19/15 Carvedilol [Coreg (*)] 12.5 mg PO BID 09/15/16 Warfarin Sodium [Coumadin 2.5MG 2.5 mg PO TUTH@16 09/15/16 (*)] Warfarin Sodium [Coumadin 5MG (*)] 5 mg PO SUMOWEFRSA@16 09/15/16 Acetaminophen [Tylenol ES 500 mg 1,500 mg PO Q6HRS PRN 01/09/17 (*)] Acetamn/Diphenhydramine 500/25 1 each PO HS PRN 01/09/17 [Tylenol PM (*)] Amiodarone HCl [Pacerone (*)] 200 mg PO DAILY 01/09/17 Furosemide [Lasix 40 MG (*)] 40 mg PO DAILY PRN 01/09/17 Lisinopril [Zestril 5 mg (*)] 5 mg PO DAILY 01/09/17 Enoxaparin [Lovenox 120 MG (*)] 120 mg SC Q12H #0 syr 01/10/17 metFORMIN HCL [Glucophage 500 mg 1,000 mg PO DAILY #0 01/10/17 (*)] metFORMIN HCL [Glucophage 500 mg 500 mg PO DAILY18 #0 01/10/17 (*)] Medical Decision Making ED Course/Re-evaluation: Patient's labs are unremarkable. She has not had any significant relief with the hyoscyamine. He has had 3 bowel movement last 30 minutes. She is not feeling well to go home while hydro. She does not tolerate. I have discussed with Mar Mena, hospitalist. Will plan for admission to the hospital for further care. Patient to be admitted Dr. Hannon. - Data Points Laboratory Results: Laboratory Results 01/11/17 07:50 01/11/17 07:50 01/11/17 01/11/17 01/11/17 07:50 07:50 07:50 WBC 7.30 10^3/uL 10^3/uL (3.80-9.50) RBC 4.50 10^6/uL 10^6/uL (4.18-5.33) Hgb 13.6 g/dL g/dL (12.6-16.3) Hct 40.8 % % (38.0-47.0) MCV 90.7 fL fL (81.5-99.8) MCH 30.2 pg pg (27.9-34.1) MCHC 33.3 g/dL g/dL (32.4-36.7) RDW 14.6 % % (11.5-15.2) Plt Count 147 10^3/uL L 10^3/uL (150-400) MPV 10.6 fL fL (8.7-11.7) Neut % (Auto) 81.9 % H % (39.3-74.2) Lymph % (Auto) 7.5 % L % (15.0-45.0) Rains % (Auto) 9.0 % % (4.5-13.0) Eos % (Auto) 0.8 % % (0.6-7.6) Baso % (Auto) 0.4 % % (0.3-1.7) Nucleat RBC Rel Count 0.0 % % (0.0-0.2) Absolute Neuts (auto) 5.97 10^3/uL 10^3/uL (1.70-6.50) Absolute Lymphs (auto) 0.55 10^3/uL L 10^3/uL (1.00-3.00) Absolute Monos (auto) 0.66 10^3/uL 10^3/uL (0.30-0.80) Absolute Eos (auto) 0.06 10^3/uL 10^3/uL (0.03-0.40) Absolute Basos (auto) 0.03 10^3/uL 10^3/uL (0.02-0.10) Absolute Nucleated RBC 0.00 10^3/uL 10^3/uL (0-0.01) Immature Gran % 0.4 % % (0.0-1.1) Immature Gran # 0.03 10^3/uL 10^3/uL (0.00-0.10) PT 20.2 SEC H SEC (12.0-15.0) INR 1.72 H (0.83-1.16) APTT 37.0 SEC SEC (23.0-38.0) Sodium 142 mEq/L mEq/L (134-144) Potassium 3.6 mEq/L mEq/L (3.5-5.2) Chloride 106 mEq/L mEq/L (97-110) Carbon Dioxide 24 mEq/l mEq/l (22-31) Anion Gap 12 mEq/L mEq/L (8-16) BUN 17 mg/dL mg/dL (7-23) Creatinine 0.8 mg/dL mg/dL (0.6-1.0) Estimated GFR > 60 Glucose 158 mg/dL H mg/dL (70-100) Calcium 9.3 mg/dL mg/dL (8.5-10.4) Microbiology Results: MICROBIOLOGY 01/11/17 08:20 Stool Gastrointestinal Tract Panel (PCR) - Final No Organism Detected Medications Given: Acetaminophen (Tylenol) 1,000 mg PO Q8 PRN PRN Reason: Pain, Mild Stop: 07/10/17 12:40 Last Admin: 01/11/17 14:56 Dose: 1,000 mg Amiodarone HCl (Amiodarone Hcl) 200 mg PO DAILY [facility] Stop: 07/10/17 12:40 Last Admin: 01/11/17 13:31 Dose: 200 mg Carvedilol (Coreg) 12.5 mg PO BID [facility] Stop: 07/10/17 12:44 Last Admin: 01/11/17 13:32 Dose: 12.5 mg Sodium Chloride (Ns) 1,000 mls @ 100 mls/hr IV CONT ABDIRAHMAN Stop: 01/11/17 23:29 Last Admin: 01/11/17 14:57 Dose: 1,000 mls Loperamide HCl (Imodium) 2 mg PO QID PRN PRN Reason: Diarrhea/Loose Stools Stop: 07/10/17 13:28 Last Admin: 01/11/17 13:57 Dose: 2 mg Discontinued Medications Enoxaparin Sodium (Lovenox) 120 mg SC Q12H ABDIRAHMAN Stop: 07/10/17 12:44 Last Admin: 01/11/17 13:37 Dose: Not Given Hyoscyamine Sulfate (Levsin, Hyomax-Sl) 0.125 mg PO EDNOW ONE Stop: 01/11/17 10:35 Last Admin: 01/11/17 10:40 Dose: 0.125 mg Sodium Chloride (Ns) 1,000 mls @ 0 mls/hr IV ONCE ONE PRN Reason: Wide Open Stop: 01/11/17 08:09 Last Admin: 01/11/17 08:26 Dose: 1,000 mls Ondansetron HCl (Zofran) 4 mg IVP EDNOW ONE Stop: 01/11/17 08:09 Last Admin: 01/11/17 08:26 Dose: 4 mg Departure - Departure Disposition: [facility]patient Acute Clinical Impression: Diarrhea, Dehydration Condition: Fair
[2017-01-11 08:17] LABS: INR 1.72 (0.83-1.16); PROTIME(PATIENT) 20.2 SEC (12.0-15.0)
[2017-01-11 08:21] LABS: ANION GAP 12 mEq/L (8-16); CALCIUM 9.3 mg/dL (8.5-10.4); CARBON DIOXIDE 24 mEq/l (22-31); CHLORIDE 106 mEq/L (97-110); CREATININE 0.8 mg/dL (0.6-1.0); GLOMERULAR FILTRATION RATE > 60; GLUCOSE 158 mg/dL (70-100); POTASSIUM 3.6 mEq/L (3.5-5.2); SODIUM 142 mEq/L (134-144)
[2017-01-11] MEDS ORDERED: HYOSCYAMINE SULFATE 0.125 MG TAB PO ONE (10:34)
[2017-01-11] MEDS ORDERED: ACETAMINOPHEN 500 MG TAB PO PRN (12:41)
[2017-01-11] MEDS ORDERED: NS 1,000 ML IV SCH (13:30)
[2017-01-11] MEDS: AMIODARONE HCL 200 MG TAB PO SCH (13:31)
[2017-01-11] MEDS ORDERED: oxyCODONE IR 5 MG TAB PO PRN (13:32)
[2017-01-11] MEDS: CARVEDILOL 6.25 MG TAB PO SCH ×2 (13:32→22:55)
[2017-01-11] MEDS: ENOXAPARIN 120 MG/0.8 ML SYR SC SCH ×2 (13:32→13:37)
[2017-01-11] MEDS ORDERED: ONDANSETRON DISINTEGRATING 4 MG TAB PO PRN (13:32)
[2017-01-11] MEDS: LOPERAMIDE HCL 2 MG CAP PO PRN ×2 (13:57→17:17)
[2017-01-11] MEDS: ACETAMINOPHEN 500 MG TAB PO PRN (14:56)
[2017-01-11] MEDS ORDERED: IOPAMIDOL (ISOVUE 370) 100 ML BTL IV ONE (15:03)
--- NOTE | 2017-01-11 15:21 | GHP ---
[f rep st] HISTORY AND PHYSICAL DATE OF ADMISSION: 01/11/2017 CHIEF COMPLAINT: Diarrhea with associated abdominal cramping. HISTORY OF PRESENT ILLNESS: The patient is a 66-year-old woman with history of Diabetes, valvular heart disease, who had an ablation for atrial fibrillation by Dr. Velasquez 2 days ago. She was discharged home yesterday. She did well with the procedure, but after the procedure she had a few episodes of diarrhea. She received antibiotics during the procedure. She is having greater than 4 to 5 loose bowel movements daily. She has been seeing blood in her stool. She denies any fever, but has some ongoing chills. She describes having waves of cramping in her lower abdominal area. She has not been eating very much because she is having some nausea. She tried Imodium without relief. In the emergency room, GI pathogen panel was sent. This was negative for any type of infectious etiology. During my evaluation, she continues to complain of ongoing abdominal discomfort. PAST MEDICAL HISTORY: 1. Diabetes, type 2. 2. Atrial fibrillation, status post ablation. 3. Atrial tachycardia. 4. Nonobstructive coronary artery disease. 5. Valvular heart disease. 6. Obstructive sleep apnea. 7. Arthritis. 8. History of mitral valve replacement in 2007, with a bovine valve. This was done secondary to rheumatic heart disease. 9. History of tricuspid valve repair. 10. Hyperlipidemia. 11. Hypertension. 12. Fibromyalgia. 13. Upper GI bleed in 2013. PAST SURGICAL HISTORY: 1. Cholecystectomy. 2. Bilateral TKA. 3. Mitral valve replacement. 4. Hysterectomy. FAMILY HISTORY: Her mom committed suicide at age 42. Her father from complications of lung cancer at age 67. He was a heavy smoker. SOCIAL HISTORY: No tobacco or alcohol use. She is . Her is at the bedside and is very supportive. 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 ALLERGIES: No known allergies. HOME MEDICATIONS: Glucophage 500 mg daily; metformin 1000 mg daily; Coumadin 5 mg p.o. Sunday, Sunday, Sunday, Sunday; Coumadin 2.5 mg p.o. Sunday and ; Zestril 5 mg daily; Lasix 40 mg daily; estradiol 1 mg p.o. Sunday, Sunday, Sunday; enoxaparin 100 mg subcu q.12; Coreg 12.5 mg p.o. twice daily ; amiodarone 200 mg daily; Tylenol PM 1 tab p.r.n.; Tylenol Extra Strength 1500 mg q.6 hours p.r.n. REVIEW OF SYSTEMS: A 10-point review of system was performed, was negative other than pertinent positives in the HPI and Past Medical History. PHYSICAL EXAM: GENERAL: The patient is a 66-year-old female, who appears in mild distress during my interview. VITAL SIGNS: Blood pressure is 151/86, heart rate is 82, respiratory rate is 20, O2 sats on room air are 95%, temperature is 37 degrees Celsius. EYES: Pupils are equal and reactive. EOMs are intact. ENT: Normal ears. Hearing intact. NECK: Trachea is midline. No masses, rubs, gallops noted. CARDIOVASCULAR: She is in a regular rate and rhythm. No murmur or rubs noted. CHEST: Lungs normal respiratory effort. Clear without rales or rhonchi. ABDOMEN: Positive bowel sounds in all 4 quadrants. No rebound, no guarding. Has some diffuse pain in the bilateral lower abdominal area. SKIN: She has ecchymosis noted especially in the left groin after postprocedure. She appears to have lower extremity with venous insufficiency. MUSCULOSKELETAL: She has equal upper and lower extremity strength. PSYCHIATRIC: She is alert and oriented. Slightly anxious. Normal judgment, insight, and normal memory. DATA: Reviewed. A CBC was performed. White blood cell count 7.3, hemoglobin of 13.6, hematocrit of 40.8, MCV 90.7, platelet count of 147. Coagulation studies show a prothrombin time of 20.2, INR of 1.72. Chemistry: Sodium is 142 , potassium 3.6, chloride of 106, BUN of 17, creatinine 0.8, glucose of 158. GI PCR shows no organisms detected. ASSESSMENT AND PLAN: 1. Abdominal pain with associated diarrhea. Her gastrointestinal pathogen panel is negative. Concerned she may have some type of mesenteric ischemia status post her ablation. Will get a CTA of her abdomen to further evaluate. In the meantime, will give her supportive care with IV fluids, Imodium, and antiemetics. 2. Atrial fibrillation. Now in sinus rhythm post ablation. Will place her on the threat monitoring analyst and monitor for any arrhythmias. Will notify cardiology of her admission and ask them to see during this stay. 3. Blood in the stool. Concern for a possible lower gastrointestinal bleed. Will monitor her hemoglobin and hematocrit, and follow up with the results of the CTA of her abdomen. 4. Hypertension. Home medications have been resumed. 5. Diabetes, type 2. Will place her metformin on hold at this time, and place her on a sliding scale. 6. DVT prophylaxis. She is on oral anticoagulation. Will check an INR in the morning. 7. Code status, full. 8. Length of stay. She will likely require less than a 2 midnight stay making her observation status. This can be further evaluated during her stay. /[id number]/MODL MTDD
[2017-01-11] MEDS ORDERED: D50W 25 GM/50 ML SYR IVP PRN (15:35)
[2017-01-11] MEDS ORDERED: WARFARIN SODIUM 2.5 MG TAB PO SCH (16:00)
[2017-01-11 16:22] LABS: HEMATOCRIT 37.2 % (38.0-47.0); HEMOGLOBIN 12.4 g/dL (12.6-16.3)
[2017-01-11] MEDS ORDERED: NS 250 ML IV ONE (16:48)
[2017-01-11] MEDS ORDERED: GOLYTELY 4000 ML BTL PO ONE (17:32)
[2017-01-11] MEDS: INSULIN LISPRO 100 UNIT/ML SC SCH (17:32)
--- NOTE | 2017-01-11 17:32 | HOSPPROG ---
Hospitalist Progress Note Assessment/Plan: Concern for Lower GI bleed/ and needing anticoagulation/ spoke with cardiology and with gastroenterology. GI will see patient this evening/ recommending a Golytely prep so patient can be evaluated. Objective: Vital Signs Temp Pulse Resp BP Pulse Ox 36.4 C 102 H 22 H 98/69 L 87 L 01/11/17 16:00 01/11/17 16:00 01/11/17 16:00 01/11/17 16:00 01/11/17 16:00 Laboratory Results 01/11/17 16:15 01/10/17 01/11/17 01/12/17 05:59 05:59 05:59 Intake Total 1000 Balance 1000 PT 20.2 SEC (12.0-15.0) H 01/11/17 07:50 INR 1.72 (0.83-1.16) H 01/11/17 07:50 ICD10 Worksheet Patient Problems: Problems Problem Status Onset Dehydration Acute Diarrhea Acute Atrial fibrillation Acute Chronic Disease Mgmt/Transitional Care Acute Gastric ulcer with hemorrhage but without obstruction Acute
--- NOTE | 2017-01-11 18:36 | PDCONSULT ---
Lift Slab Operator Note: GI Consult note Full note dictated After fluid bolus BP and Pulse now normal A/ LGIB DDx includes infectious colitis, ischemia (not seen on CT), tic bleed, AVM or polyp etc. Doubt UGIB p/ Monitor H+H Hold anticoagulation for now If remains stable then colon in AM, may consider colon tonight post prep if still with significant bleeding If becomes unable tonight then rec angio/embolization
--- NOTE | 2017-01-11 19:47 | GCON ---
[f rep st] CONSULTATION DATE OF CONSULTATION: 01/11/2017 CHIEF COMPLAINT: Bright red blood per rectum. HISTORY OF PRESENT ILLNESS: I am asked to see this patient in consultation by Mar Mena for chief complaint of lower GI bleeding. The patient is a 66- year-old who underwent ablation for atrial fibrillation on Sunday, did have a few bouts of diarrhea after the procedure. Likely she did get antibiotics during that stay and then was discharged home. This morning noted a little bit of pink with bowel movements and increasing frequency of diarrhea. Was seen and readmitted. CT scan showed dysmotilic pattern to the intestines. Diverticulosis noted and large hiatal hernia, but no segmental colitis. GI path was obtained and was negative and then she developed significant bleeding this afternoon, having bright red blood with some clots about every hour. With this she did have some crampy lower abdominal pain with the diarrhea. No fevers or chills. Some nausea but no vomiting. No hematemesis. No GERD symptoms. Of note, patient did have a history of upper GI bleeding in 2013, found to be from NSAID-induced ulcers. Since then she has avoided NSAIDs. Her last colonoscopy was 2005, but I do not have those records. She states that she had a heme or stool type test for colon cancer screening this year and never heard the results back. FAMILY HISTORY: Notable for colon cancer in a grandfather. ALLERGIES: No reported allergies. HOME MEDICATIONS: Include metformin, Coumadin, lisinopril, Lasix, estradiol, Lovenox, Coreg, amiodarone, Tylenol. The patient has been on Coumadin supervisor long goods for her atrial fibrillation. PAST MEDICAL HISTORY: Type 2 diabetes, atrial fibrillation status post ablation 2 days ago, nonobstructive coronary artery disease, valvular heart disease, obstructive sleep apnea, arthritis, mitral valve replacement 2007 with bovine valve, tricuspid valve repair, hyperlipidemia, fibromyalgia, upper GI bleed from NSAID ulcerations 2013. She is status post cholecystectomy and hysterectomy. SOCIAL HISTORY: The patient denies alcohol use. FAMILY HISTORY: Notable for colon cancer in a grandfather. REVIEW OF SYSTEMS: I have performed a complete review of systems which is negative except for the pertinent positives and negatives noted above in the HPI. PHYSICAL EXAMINATION: VITAL SIGNS: Afebrile at 36.4, on the floor pulse was 102 and BP 98/89. After fluid bolus her pulse is now 85 with BP 109/73. CONSTITUTIONAL: She is alert and oriented. EYES: non icteric. HEENT: No oral lesions. CARDIOVASCULAR: Regular rhythm. CHEST: Clear to auscultation. ABDOMEN: Obese, positive bowel sounds. Some tenderness to deep palpation in the right lower and left lower quadrant without rebound. She has a hematoma in her groin from a needle stick from the procedure. NEUROLOGIC: Nonfocal. SKIN : No rashes. LABORATORY DATA: BUN and creatinine are 17 and 0.8. Hematocrit on admission was 40.6 with a hemoglobin at 13.2, white count and platelets normal. Repeat H and H this afternoon was 12.4, hematocrit of 37.2. Pro time is 20 with an INR 1.73. ASSESSMENT: Abdominal pain with diarrhea, now with vikas concern with lower GI bleeding. Initially with some increased heart rate but now has responded well to IV fluid bolus. She has continued to note bright red blood frequently. Differential diagnosis would include infectious colitis, consider ischemia although classic ischemic changes were not identified on CT scan. Consider diverticular bleed, arteriovenous malformation, or colon polyp, etc. I think this bleeding has worsened in the presence of anticoagulation. At this point, I doubt an upper GI bleed. Initially she did have some hemodynamic compromise, but is overall improved but will need to monitor closely. PLAN: 1. I recommend monitor H and H closely and transfuse as needed. 2. Minimize anticoagulation if possible per cardiology. 3. Begin prep for colonoscopy. Overall patient would be high risk for colonoscopy given her anticoagulation and recent ablation; however, because of the significance of her bleed, I believe the benefits would outweigh the risks. If she has continued bleeding tonight then we will proceed with colonoscopy this evening after bowel prep. If she becomes hemodynamically unstable, then would recommend angioembolization with possible tagged cell scan first if needed. 4. Will follow closely. /[id number]/MODL MTDD
--- NOTE | 2017-01-11 20:27 | GCON ---
[f rep st] CONSULTATION DATE OF CONSULTATION: 01/11/2017 We were asked by hospitalist, Mar Mena, nurse practitioner to consult regarding new onset of bloody diarrhea. DICTATION ENDS HERE Complete re-dictation, #[id number]. /[id number]/MODL
--- NOTE | 2017-01-11 20:27 | GCON ---
[f rep st] CONSULTATION DATE OF CONSULTATION: 01/11/2017 REFERRING PHYSICIAN: Mar Mena NP REASON FOR CONSULTATION: We were asked to consult by Mar Mena, Nurse Practitioner, hospitalist, regarding this patient's recent atrial fibrillation ablation 2 days ago, now admitted with bloody diarrhea. HISTORY OF PRESENT ILLNESS: The patient had a recent ablation for atrial fibrillation by Dr. Velasquez 2 days ago. Upon discharge from the hospital, she was doing well; however, yesterday afternoon she started to have low abdominal cramping and subsequent multiple episodes of diarrhea. This continued through the night and into the day today. She noted the diarrhea with pink tinge this morning, concerning for blood in the stool. She, subsequently, went to the emergency room for further evaluation. She has continued to have multiple episodes of diarrhea and has become weak and dehydrated. She has not been able to eat and now has nausea. She did try Imodium, with no relief. Due to the atrial fibrillation ablation, it is necessary for her to remain anticoagulated. She was on Lovenox along with Coumadin until her INR reached 2.0. In visiting with Dr. Velasquez, the Lovenox was stopped, and she is to continue on Coumadin. At time of my consult, she continues to complain of low abdominal cramping and recurrent episodes of diarrhea, now becoming more blood tinged. PAST MEDICAL HISTORY: 1. She does have a history of atrial fibrillation, post ablation. 2. Nonobstructive coronary artery disease. 3. Valvular heart disease; mitral valve replacement in 2007 secondary to rheumatic heart disease. 4. History of tricuspid valve repair. 5. Diabetes type 2. 6. Hypertension. 7. Hyperlipidemia. 8. History of GI bleed in 2013. PAST SURGICAL HISTORY: 1. Mitral and tricuspid valve replacement. 2. Cholecystectomy. 3. Hysterectomy. FAMILY HISTORY: She has no known family history of cardiac disease or family arrhythmias. Her mother due to suicide in her 40s. Her father of lung cancer at age 67. SOCIAL HISTORY: She lives with her . She denies use of tobacco or alcohol. MEDICATIONS: She currently is on: Estradiol 1 mg Sunday, Sunday, Sunday. Warfarin 2.5 mg Sunday, ; 5 mg Sunday, Sunday, Sunday, Sunday, Sunday. Carvedilol 12.5 mg twice daily. Amiodarone 200 mg daily. Tylenol PM 1 tablet at bedtime as needed. Tylenol ES 325 mg every 6 hours as needed. Zestril 5 mg daily. Lasix 40 mg daily as needed. Lovenox 120 mg subcu every 12 hours until INR is 2.0. Glucophage 1000 mg daily. Glucophage 500 mg daily at 1800. ALLERGIES: She has no known allergies. REVIEW OF SYSTEMS: 10-point review of systems negative, except that in her HPI. PHYSICAL EXAMINATION: GENERAL: She is in mild abdominal distress. HEENT: Eyes: Pupils are equal, EOMI intact. Ears: Hearing intact. NECK: Supple, with no bruits. HEART: Rate is regular, with no murmurs, rubs, or gallops. CHEST: Lung sounds are clear to auscultation. No wheezes, rales, or rhonchi. ABDOMEN: Soft, with tenderness in the right and left lower quadrants. SKIN: Warm, with lower extremity mild swelling. PSYCHIATRIC: She is anxious, alert and oriented. VITAL SIGNS: Blood pressure 151/86, heart rate 82 and regular, oxygen saturation 89% on room air, temperature 37.0 Celsius. INVESTIGATIONS: Lab: At 7:50, white blood count 7.3, hemoglobin 13.6, hematocrit 40.8, MCV 90.7, platelet count 147. At 6:15, hemoglobin 12.4, hematocrit 37.2. INR 1.72. Chemistry: Sodium 142, potassium 3.6, chloride 106, carbon dioxide 24, anion gap 12, BUN 17, creatinine 0.8, estimated GFR greater than 60, glucose 158. Glucose (at 1646) 195. Calcium 9.3. IMPRESSION AND PLAN: 1. Diarrhea of unknown etiology. 2. Blood-tinged diarrhea concerning for blood loss related to anticoagulation. Agree with plan for a CT of the abdomen to further evaluate cause. 3. Anticoagulation necessary to be continued status post atrial fibrillation ablation. She is at high risk for throwing blood clots after this procedure. In consultation with Dr. Velasquez, he felt it appropriate to stop Lovenox, but necessary to continue Coumadin at this time. 4. Should the diarrhea become increasingly more blood tinged, we will further address anticoagulation. 5. We will continue to follow along. 6. Further recommendations after the CT scan. 7. Please call with any further concerns or progression of noted bleeding. Consideration for GI evaluation may be necessary. Thank you for allowing us to be part of this patient's care. /[id number]/MODL MTDD
--- NOTE | 2017-01-11 21:43 | HOSPPROG ---
Hospitalist Progress Note Assessment/Plan: Patient h/o ablation 2 days prior, onset of diarrhea 1 day prior; admitted for LGIB with blood tinged diarrhea. Hgb has remained stable yet fell from admission level. Patient continue to have crampy abdominal pain with bloody, blood tinged diarrhea. CT scan shows diverticular disease; GI consults doubts UGIB. GI bleeding thought 2/2 diverticular disease, ischemic colitis, AVM, adenoma. Patient seen and examined with cardiology. Discussed case with cardiology, Dr Velasquez Plan: 1. Patient must remain anticoagulated post ablation for next 2 weeks. The risk of embolic stroke is very high during this period. If Hgb falls first priority would be to transfuse to support and maintain anticoag state 2. If patient continues to bleed tonight, GI will do colonoscopy in AM. 3. Continue IVF support, immodium, and check H/H q6h 4. INR is 1.9 on last reading. To maintain anticoag would use heparin in AM, support with tranfusion if needed. 5. If febrile, begin antibiotic for possible diverticulitis and continue anticoag state with heparin. Overall suspect this is a diverticular bleed. GI panel is negative. Time: 60 minutes. Case discussed with cardiology, Dr Velasquez and admitting Mar Mena [employer] Objective: Vital Signs Temp Pulse Resp BP Pulse Ox 36.7 C 82 15 107/75 93 01/11/17 20:00 01/11/17 20:00 01/11/17 20:00 01/11/17 20:00 01/11/17 20:00 Laboratory Results 01/11/17 16:15 01/10/17 01/11/17 01/12/17 05:59 05:59 05:59 Intake Total 1400 Output Total 200 Balance 1200 PT 20.2 SEC (12.0-15.0) H 01/11/17 07:50 INR 1.72 (0.83-1.16) H 01/11/17 07:50 ICD10 Worksheet Patient Problems: Problems Problem Status Onset Diarrhea Acute Dehydration Acute Atrial fibrillation Acute Gastric ulcer with hemorrhage but without obstruction Acute Chronic Disease [facility]/Transitional Care Acute
[2017-01-11 22:20] LABS: HEMATOCRIT 37.9 % (38.0-47.0); HEMOGLOBIN 12.8 g/dL (12.6-16.3)
[2017-01-12 04:56] LABS: % IMMATURE GRANULYOCYTES 0.2 % (0.0-1.1); ABSOLUTE IMMATURE GRANULOCYTES 0.01 10^3/uL (0.00-0.10); ADD DIFF? NO; ADD MORPH? NO; ADD SCAN? NO; ATYPICAL LYMPHOCYTE FLAG 0 (0-99); FRAGMENT RBC FLAG 0 (0-99); HEMATOCRIT 34.1 % (38.0-47.0); HEMOGLOBIN 11.4 g/dL (12.6-16.3); LEFT SHIFT FLG 0 (0-99); LIPEMIA HEMOLYSIS FLAG 80 (0-99); MEAN CELL HEMOGLOBIN 30.2 pg (27.9-34.1); MEAN CELL HEMOGLOBIN CONCENTR. 33.4 g/dL (32.4-36.7); MEAN CELL VOLUME 90.5 fL (81.5-99.8); PLATELET CLUMPS FLAG 0 (0-99); PLATELET COUNT 121 10^3/uL (150-400); RED BLOOD CELL COUNT 3.77 10^6/uL (4.18-5.33); RED CELL DISTRIBUTION WIDTH 14.6 % (11.5-15.2)
[2017-01-12 05:09] LABS: INR 1.71 (0.83-1.16); PROTIME(PATIENT) 20.1 SEC (12.0-15.0)
[2017-01-12 05:22] LABS: ALANINE AMINOTRANSFERASE 36 IU/L (9-52); ALBUMIN 2.9 g/dL (3.5-5.0); ALKALINE PHOSPHATASE 55 IU/L (38-126); ANION GAP 10 mEq/L (8-16); ASPARTATE AMINOTRANSFERASE 25 IU/L (14-46); BILIRUBIN,TOTAL 0.8 mg/dL (0.1-1.4); CALCIUM 8.1 mg/dL (8.5-10.4); CARBON DIOXIDE 22 mEq/l (22-31); CHLORIDE 108 mEq/L (97-110); CREATININE 0.6 mg/dL (0.6-1.0); GLOMERULAR FILTRATION RATE > 60; GLUCOSE 122 mg/dL (70-100); MAGNESIUM 1.3 mg/dL (1.6-2.3); POTASSIUM 3.1 mEq/L (3.5-5.2); SODIUM 140 mEq/L (134-144); TOTAL PROTEIN 5.3 g/dL (6.3-8.2)
[2017-01-12 05:30] LABS: TROPONIN I 0.098 ng/mL (0.000-0.034)
[2017-01-12] MEDS ORDERED: PROTOCOL POTASSIUM 1 DOSE MISC PRN (06:31)
[2017-01-12] MEDS ORDERED: PROTOCOL MAGNESIUM 1 DOSE IV PRN (06:31)
[2017-01-12] MEDS ORDERED: PROTOCOL CALCIUM 1 DOSE IV PRN (06:31)
[2017-01-12] MEDS ORDERED: PROTOCOL K PHOSPHATE 1 DOSE IV PRN (06:31)
--- NOTE | 2017-01-12 06:33 | HOSPPROG ---
Hospitalist Progress Note Assessment/Plan: Patient h/o ablation 2 days prior, onset of diarrhea 1 day prior; admitted for LGIB with blood tinged diarrhea. Hgb has remained stable yet fell from admission level. Patient continue to have crampy abdominal pain with bloody, blood tinged diarrhea. CT scan shows diverticular disease; GI consults doubts UGIB. GI bleeding thought 2/2 diverticular disease, ischemic colitis, AVM, adenoma. Patient seen and examined with cardiology. Discussed case with cardiology, Dr Velasquez Plan: 1. Patient must remain anticoagulated post ablation for next 2 weeks. The risk of embolic stroke is very high during this period. If Hgb falls first priority would be to transfuse to support and maintain anticoag state 2. If patient continues to bleed tonight, GI will do colonoscopy in AM. 3. Continue IVF support, immodium, and check H/H q6h 4. INR is 1.9 on last reading. To maintain anticoag would use heparin in AM, support with tranfusion if needed. 5. If febrile, begin antibiotic for possible diverticulitis and continue anticoag state with heparin. Overall suspect this is a diverticular bleed. GI panel is negative. Time: 60 minutes. Case discussed with cardiology, Dr Velasquez and admitting Mar Mena NP Objective: Vital Signs Temp Pulse Resp BP Pulse Ox 36.3 C 71 17 101/55 L 97 01/12/17 04:00 01/12/17 04:00 01/12/17 04:00 01/12/17 04:00 01/12/17 04:00 Laboratory Results 01/12/17 03:44 01/12/17 03:44 01/11/17 01/12/17 01/13/17 05:59 05:59 05:59 Intake Total 4500 Output Total 200 Balance 4300 PT 20.1 SEC (12.0-15.0) H 01/12/17 03:44 INR 1.71 (0.83-1.16) H 01/12/17 03:44 Laboratory Tests 01/11/17 01/11/17 01/11/17 07:50 07:50 16:15 Hgb 13.6 12.4 L INR 1.72 H Potassium Calcium Phosphorus Magnesium Albumin 01/11/17 01/12/17 01/12/17 22:15 03:44 03:44 Hgb 12.8 11.4 L INR Potassium 3.1 L Calcium 8.1 L Phosphorus 2.4 L Magnesium 1.3 L Albumin 2.9 L 01/12/17 03:44 Hgb INR 1.71 H Potassium Calcium Phosphorus Magnesium Albumin ICD10 Worksheet Patient Problems: Problems Problem Status Onset Diarrhea Acute Dehydration Acute Atrial fibrillation Acute Gastric ulcer with hemorrhage but without obstruction Acute Chronic Disease Mgmt/Transitional Care Acute
[2017-01-12] MEDS ORDERED: HEPARIN 10,000 UNIT/10 ML MDV IVP PRN (07:33)
[2017-01-12] MEDS ORDERED: HEPARIN 10,000 UNIT/10 ML MDV IVP ONE (07:33)
--- NOTE | 2017-01-12 07:40 | HOSPPROG ---
Hospitalist Progress Note Assessment/Plan: Patient h/o ablation 2 days prior, onset of diarrhea 1 day prior; admitted for LGIB with blood tinged diarrhea. Hgb has remained stable yet fell from admission level. Patient continue to have crampy abdominal pain with bloody, blood tinged diarrhea. CT scan shows diverticular disease; GI consults doubts UGIB. GI bleeding thought 2/2 diverticular disease, ischemic colitis, AVM, adenoma. Today the patient notes she has no further abdominal pain. It stopped during the night. She denies having shortness of breath symptoms of orthopnea or PND as she has been able lie flat and breathe normally. The stool post go light colonoscopy prep is clear now. No complaints of chest pain shortness of breath nausea vomiting. The abdominal pain is resolved -atrial fibrillation: Patient is status post an ablation 3 days prior. Monitor throughout the night shows alternation between atrial fibrillation and sinus rhythm. INR this morning is 1.7. Patient needs to be full-dose anticoagulated due to the risk of stroke. Patient is fluid positive but there is no signs of CHF. Plan: Heparin anticoagulation and transitioned to Coumadin; TKO the IV fluids. -abdominal plain and GI bleeding: Hemoglobin currently 11.4 and appears stable and there is no clinical signs of GI bleeding. Plan: colonoscopy today showed an adenoma that was clipped and biopsies were taken without evidence of bleeding. Case was discussed with Gastroenterology in the findings were also discussed. Patient will continue on anticoagulation. The source of bleeding has probably been resolved. -hypokalemia: Will place on potassium protocol and replete. -SPCM: Albumin 2.9. This is likely secondary to poor nutritional intake and her long-term recent illness. Post colonoscopy will place on a regular diet. Dietary consult will be obtained if she is unable to maintain adequate caloric intake. - Patient should be changed to inpatient status due to the severity of her illness the need for anticoagulation and to watch her hemoglobin and hematocrit over the next 1-2 days to assure that she does not have recurrent bleeding. -past medical history of note: Diabetes mellitus, valvular heart disease status post bovine mitral valve replacement in 2007, arthritis, obstructive sleep apnea syndrome diagnosed 10 years [employer] with use of nocturnal O2. The CPAP mask does not fit well enough to use, bilateral knee replacements with resulting bilateral lower extremity edema of a chronic nature. Plan/ disposition: Continue anticoagulation with heparin until her INR is therapeutic on Coumadin. She will be given Coumadin 5 mg daily until the INR is therapeutic. If the patient does not have bleeding in the next 24-48 hours she could be discharged home. She has 3 vials of Lovenox to perform bridging therapy. Case was discussed with Cardiology and with Gastroenterology. The CT scan of the abdomen showing diverticular disease was reviewed by myself on the PAC system and with Radiology. Time: 55 minutes Subjective: No complaints of chest pain shortness of breath, nausea or vomiting. The abdominal pain resolved during the night on a GoLYTELY prep. Objective: Vital Signs Temp Pulse Resp BP Pulse Ox 36.3 C 71 17 101/55 L 97 01/12/17 04:00 01/12/17 04:00 01/12/17 04:00 01/12/17 04:00 01/12/17 04:00 Laboratory Results 01/12/17 03:44 01/12/17 03:44 01/11/17 01/12/17 01/13/17 05:59 05:59 05:59 Intake Total 4500 Output Total 200 Balance 4300 PT 20.1 SEC (12.0-15.0) H 01/12/17 03:44 INR 1.71 (0.83-1.16) H 01/12/17 03:44 - Time Spent With Patient Time Spent with Patient: greater than 35 minutes Time Spent with Patient: Greater than 35 minutes spent on this patients care, greater than 50% of time spent counseling, educating, and coordinating care regarding the above mentioned plan. - Pending Discharge Pending Discharge Within 24 Hours: No Pending Discharge Within 48 Hours: No - Physical Exam Constitutional: no apparent distress, appears nourished Eyes: PERRL, anicteric sclera Ears, Nose, Mouth, Throat: moist mucous membranes, hearing normal Cardiovascular: regular rate and rhythym, no murmur, rub, or gallop, irregularly irregular, JVD (Rhythm alternates between atrial fibrillation and sinus rhythm on the monitor throughout the night. JVD does not appear to be elevated she has 2 to 3+ peripheral edema.), other (S1 and S2 are normal with an S2 physiologically split.) Respiratory: no respiratory distress, no rales or rhonchi, clear to auscultation Gastrointestinal: normoactive bowel sounds, soft, non-tender abdomen, no palpable masses Genitourinary: no bladder fullness Skin: warm Musculoskeletal: full muscle strength Neurologic: AAOx3, CN II-XII Intact Psychiatric: interacting appropriately ICD10 Worksheet Patient Problems: Problems Problem Status Onset Diarrhea Acute Dehydration Acute Atrial fibrillation Acute Gastric ulcer with hemorrhage but without obstruction Acute Chronic Disease Mgmt/Transitional Care Acute
[2017-01-12] MEDS ORDERED: ESTRADIOL 1 MG TAB PO SCH (08:00)
[2017-01-12 08:32] LABS: IONIZED CALCIUM 1.11 MMOL/L (1.12-1.30)
[2017-01-12 08:34] LABS: % IMMATURE GRANULYOCYTES 0.4 % (0.0-1.1); ABSOLUTE IMMATURE GRANULOCYTES 0.02 10^3/uL (0.00-0.10); ADD DIFF? NO; ADD MORPH? NO; ADD SCAN? NO; ATYPICAL LYMPHOCYTE FLAG 10 (0-99); FRAGMENT RBC FLAG 0 (0-99); LEFT SHIFT FLG 0 (0-99); LIPEMIA HEMOLYSIS FLAG 80 (0-99); MEAN CELL HEMOGLOBIN 30.2 pg (27.9-34.1); MEAN CELL HEMOGLOBIN CONCENTR. 33.3 g/dL (32.4-36.7); MEAN CELL VOLUME 90.7 fL (81.5-99.8); MEAN PLATELET VOLUME 10.8 fL (8.7-11.7); PLATELET CLUMPS FLAG 0 (0-99); PLATELET COUNT 140 10^3/uL (150-400); RED BLOOD CELL COUNT 3.97 10^6/uL (4.18-5.33); RED CELL DISTRIBUTION WIDTH 14.6 % (11.5-15.2)
[2017-01-12] MEDS ORDERED: LR 1,000 ML IV ONE (09:20)
[2017-01-12] MEDS: INSULIN LISPRO 100 UNIT/ML SC SCH ×3 (09:40→17:52)
--- NOTE | 2017-01-12 09:54 | PDANEPAE ---
ANE History of Present Illness diarrhea, GI bleed ANE Past Medical History - Cardiovascular History Hx Hypertension: Yes Hx Arrhythmias: Yes Hx Chest Pain: Yes Hx Coronary Artery / Peripheral Vascular Disease: No Hx CHF / Valvular Disease: Yes Hx Palpitations: No - Pulmonary History Hx COPD: No Hx Asthma/Reactive Airway Disease: No Hx Recent Upper Respiratory Infection: No Hx Oxygen in Use at Home: Yes O2 in Use at Home (L/minute): 4 Hx Sleep Apnea: Yes Sleep Apnea Screening Result - Last Documented: Positive - Endocrine History Hx Diabetes: Yes Obesity: severe - Chronic Pain History Chronic Pain: No ANE Review of Systems - Exercise capacity METS (RN): 4 METS ANE Patient History - Allergies Allergies/Adverse Reactions: No Known Allergies Allergy (Unverified 04/24/15 20:47) - Home Medications Home medications: home medication list seen and reviewed Home Medications: Estradiol [Estradiol 1 MG (*)] 1 mg PO MWF 04/19/15 [Last Taken 01/10/17] Carvedilol [Coreg (*)] 12.5 mg PO BID 09/15/16 [Last Taken 01/10/17] Warfarin Sodium [Coumadin 2.5MG (*)] 2.5 mg PO TUTH@16 09/15/16 [Last Taken ] Warfarin Sodium [Coumadin 5MG (*)] 5 mg PO SUMOWEFRSA@16 09/15/16 [Last Taken ] Acetaminophen [Tylenol ES 500 mg (*)] 1,500 mg PO Q6HRS PRN 01/09/17 [Last Taken 01/10/17] Acetamn/Diphenhydramine 500/25 [Tylenol PM (*)] 1 each PO HS PRN 01/09/17 [Last Taken 01/10/17] Amiodarone HCl [Pacerone (*)] 200 mg PO DAILY 01/09/17 [Last Taken 01/10/17] Furosemide [Lasix 40 MG (*)] 40 mg PO DAILY PRN 01/09/17 [Last Taken 01/10/17] Lisinopril [Zestril 5 mg (*)] 5 mg PO DAILY 01/09/17 [Last Taken 01/10/17] - NPO status NPO Since - Liquids (Date): 01/12/17 NPO Since - Liquids (Time): 00:00 NPO Since - Solids (Date): 01/11/17 NPO Since - Solids (Time): 18:00 - Smoking Hx Smoking Status: Never smoked ANE Labs/Vital Signs - Labs Result Diagrams: 01/12/17 04:27 01/12/17 03:44 - Vital Signs Blood Pressure: 119/66 Heart Rate: 60 Respiratory Rate: 16 O2 Sat (%): 96 Height: 165.1 cm Weight: 115.666 kg ANE Physical Exam - Airway Neck exam: FROM Mallampati Score: Class 2 Mouth exam: normal dental/mouth exam - Pulmonary Pulmonary: no respiratory distress - Cardiovascular Cardiovascular: regular rate and rhythym - ASA Status ASA Status: IV ANE Anesthesia Plan Anesthesia Plan: GA with mask
[2017-01-12] MEDS ORDERED: PROPOFOL 200 MG/20 ML VIAL ONE ×2 (09:59)
[2017-01-12] MEDS ORDERED: NALOXONE HCL 0.4 MG/ML INJ IVP PRN (10:15)
[2017-01-12] MEDS ORDERED: ONDANSETRON 4 MG/2 ML VIAL IVP PRN (10:15)
[2017-01-12] MEDS ORDERED: ALBUTEROL 3 ML DEYVIAL IH PRN (10:15)
[2017-01-12] MEDS ORDERED: ACETAMINOPHEN 500 MG TAB PO PRN (10:15)
[2017-01-12] MEDS ORDERED: LABETALOL HCL 50 MG/10 ML SYR IVP PRN (10:15)
[2017-01-12] MEDS ORDERED: LR 500 ML IV PRN (10:15)
--- NOTE | 2017-01-12 10:42 | POSTANESTH ---
Post Anesthetic Evaluation Cardiovascular Status: Normal, Stable Respiratory Status: Normal, Stable Level of Consciousness/Mental Status: Can Participate in Eval Pain Control: Adequate, Prn Tx Ordered Nausea/Vomiting Control: Adequate, Prn Tx Ordered Complications Possibly Related to Anesthesia: None Noted
--- NOTE | 2017-01-12 10:56 | SUROPNOTE ---
[facility] Operative Report - Surgery Full not dictated Ilium with erosions and inflammation biopsied Colon scattered tic to ascending colon. No active bleeding no old blood Inflamed appearing rectal polyp removed with mild oozing and clip placed Await path Low risk for rebleeding and OK for anticoagulation If significant rebleeding rec tagged cell scan and possible angio Advance diet
[2017-01-12] MEDS: AMIODARONE HCL 200 MG TAB PO SCH (11:36)
[2017-01-12] MEDS: CARVEDILOL 6.25 MG TAB PO SCH ×2 (11:36→21:55)
[2017-01-12] MEDS: LISINOPRIL 5 MG TAB PO SCH (11:36)
--- NOTE | 2017-01-12 11:44 | GPN ---
[f rep st] PROCEDURE NOTE DATE OF PROCEDURE: 01/12/2017 PROCEDURE PERFORMED: Colonoscopy with biopsy. INSTRUMENT USED: Olympus gastric colonoscope. MEDICINES GIVEN: Per Anesthesiology. INDICATIONS: Patient is a 66-year old, anticoagulated post cardiac ablation on Sunday with diarrhe a followed by bloody stools which have now stopped with bowel prep. Patient does require ongoing an ticoagulation due to her thrombotic risk after ablation. Patient referred for a colonoscopy to iden tify source of bleeding, engage risk for rebleeding. Prior to the procedure, exam was performed inc luding auscultation of the heart and lungs within normal limits. Patient's mental status was approp riate. Procedure was explained including the risks of bleeding, perforation, effects of sedation, i n particular increased risk of bleeding given her continued anticoagulation, however, her pro time i s 1.7 today, so safe to do diagnostic test and biopsies. The patient gave her informed consent. FINDINGS: Patient was placed in left lateral decubitus position. Perianal and rectal exam performe d and was normal. Instrument inserted into the rectum and advanced by direct visualization to the c ecum which was reached and identified by the presence of the ileocecal valve, appendiceal orifice, a nd the confluence of the tenia. From this area, the scope was slowly withdrawn with inspection of c olonic mucosa. The prep was somewhat poor but the majority of the mucosa could be seen. There was no old blood, no blood clots, no active bleeding seen throughout the procedure and throughout the co aleyda. The terminal ileum was then intubated. There was again no old blood but the ileum was mild-to -moderately inflamed with erythema and small erosions. This was biopsied with only minimal oozing w hich stopped during the procedure. The scope was then slowly withdrawn with inspection of colonic m ucosa which was notable for moderate diverticulosis, primarily in the descending and sigmoid colon, but also up to the ascending colon. No blood clot, no visible vessels seen. There was a 5 mm eryth ematous polyp seen in the rectum. This was removed by cold biopsy with some oozing. Because of her continued anticoagulation, a clip was placed with cessation of all oozing. Retroflexion was perfor med and revealed hemorrhoids. Scope was removed from the patient who tolerated the procedure well. Time spent was approximately 20 minutes. ASSESSMENT: 1. Ileum with erosions and inflammation, and given light of her recent diarrhea, suspect this is ac [place] inflammatory process, although of note, her diarrhea is improved after the prep. Inflammatory b owel disease is possible, but I think less likely. Consider drug reaction such as NSAID. 2. Scattered diverticulosis without evidence of active bleeding. 3. Inflamed-appearing polyp which was removed and clip placed. 4. Hemorrhoids. PLAN: 1. I will await path. 2. Overall low risk for rebleeding and okay for anticoagulation, however, if patient should develop recurrent significant bleeding, would recommend tagged cell scan to identify which side of the colo n and possible angio. Thank this consult. /[id number]/MODL
[2017-01-12] MEDS: HEPARIN/DEXTROSE 500 ML IV SCH (11:46)
[2017-01-12 12:35] LABS: HEMATOCRIT 35.6 % (38.0-47.0)
--- NOTE | 2017-01-12 14:02 | ASMTCASEMG ---
Living Arrangements What is your living Answers: With Spouse arrangement? Who do you live with? Type Of Residence What kind of residence do Answers: House you live in? Discharge Plan Comments Coordination Status Comments Notes: CM met w/ pt and to discuss dispo planning. Pt reports that she will most likely d/c without any needs. Pt hopes to return back to work sondra. CM available if there are any changes. Date Signed: 01/12/2017 02:01 PM Electronically Signed By:Rylee Turcios
[2017-01-12] MEDS ORDERED: WARFARIN SODIUM 5 MG TAB PO SCH (16:00)
--- NOTE | 2017-01-12 16:36 | PDCARPN ---
Cardiology Progress Note Assessment/Plan: Assessment: A Fib Ablation 01/07/17 with no complications. On Anticoagulation due to high risk of thrombosis post procedure. Has remained in Sinus rhythm. Diarrhea with blood started 01/11, became weak, and had lower abdominal cramping. Went to ER and admitted. Lovenox was stopped by OK of Dr Mena, however she remained on Coumadin with INR at 1.7. The bloody diarrhea progressed and GI was asked to consult. DR MENA spoke to Dr Hannon about need for anticoagulation, and recommended alternate anticoagulation if absolutely needed. (See Dr Hannon note) GI studies were ordered and with liquid prep, the bloody stool subsided. Dr Diggs with GI did not think this is GI bleed. Biopsy results are pending. She continues on Coumadin with no further bleeding. Plan: Continue on Coumadin therapy. Hospitalist ( Romi Owen MD) agrees to take over service. 01/12/17 17:25 01/12/17 17:37 Reviewed/Discussed With: family, hospitalist, multidisciplinary team Result Diagrams: 01/12/17 12:24 01/12/17 03:44 - Physical Exam Constitutional: no apparent distress Neurologic: AAOx3 Psychiatric: cooperative, interactive ICD10 Worksheet Patient Problems: Problems Problem Status Onset Dehydration Acute Diarrhea Acute Atrial fibrillation Acute Chronic Disease Mgmt/Transitional Care Acute Gastric ulcer with hemorrhage but without obstruction Acute
[2017-01-12 19:27] LABS: HEMATOCRIT 35.5 % (38.0-47.0); HEMOGLOBIN 11.7 g/dL (12.6-16.3)
[2017-01-12 19:50] LABS: POTASSIUM 3.4 mEq/L (3.5-5.2)
[2017-01-12] MEDS: ACETAMINOPHEN 500 MG TAB PO PRN (21:54)
[2017-01-13] MEDS: HEPARIN/DEXTROSE 500 ML IV SCH (00:54)
[2017-01-13 02:32] LABS: % IMMATURE GRANULYOCYTES 0.6 % (0.0-1.1); ABSOLUTE IMMATURE GRANULOCYTES 0.03 10^3/uL (0.00-0.10); ADD DIFF? NO; ADD MORPH? NO; ADD SCAN? NO; ATYPICAL LYMPHOCYTE FLAG 20 (0-99); FRAGMENT RBC FLAG 0 (0-99); HEMOGLOBIN 10.8 g/dL (12.6-16.3); IONIZED CALCIUM 1.11 MMOL/L (1.12-1.30); LEFT SHIFT FLG 0 (0-99); LIPEMIA HEMOLYSIS FLAG 90 (0-99); MEAN CELL HEMOGLOBIN 30.4 pg (27.9-34.1); MEAN CELL HEMOGLOBIN CONCENTR. 33.8 g/dL (32.4-36.7); MEAN CELL VOLUME 90.1 fL (81.5-99.8); MEAN PLATELET VOLUME 10.7 fL (8.7-11.7); PLATELET CLUMPS FLAG 10 (0-99); PLATELET COUNT 143 10^3/uL (150-400); RED BLOOD CELL COUNT 3.55 10^6/uL (4.18-5.33); RED CELL DISTRIBUTION WIDTH 14.7 % (11.5-15.2)
[2017-01-13 02:41] LABS: INR 1.65 (0.83-1.16); PROTIME(PATIENT) 19.6 SEC (12.0-15.0)
[2017-01-13 02:55] LABS: ANION GAP 7 mEq/L (8-16); CALCIUM 8.3 mg/dL (8.5-10.4); CARBON DIOXIDE 22 mEq/l (22-31); CHLORIDE 107 mEq/L (97-110); CREATININE 0.9 mg/dL (0.6-1.0); GLOMERULAR FILTRATION RATE > 60; GLUCOSE 158 mg/dL (70-100); MAGNESIUM 1.3 mg/dL (1.6-2.3); POTASSIUM 3.3 mEq/L (3.5-5.2); SODIUM 136 mEq/L (134-144)
[2017-01-13] MEDS ORDERED: POTASSIUM CL 10 MEQ TAB PO ONE (07:26)
[2017-01-13] MEDS ORDERED: MAGNESIUM SULF 2 GM/WATER 50 ML IV ONE (07:27)
[2017-01-13] MEDS ORDERED: CALCIUM GLUCONATE 50 ML IV ONE (07:29)
[2017-01-13 07:33] VITALS: RESP 16
[2017-01-13] MEDS: LISINOPRIL 5 MG TAB PO SCH (07:59)
[2017-01-13] MEDS: INSULIN LISPRO 100 UNIT/ML SC SCH ×2 (07:59→11:47)
[2017-01-13] MEDS: AMIODARONE HCL 200 MG TAB PO SCH (08:19)
[2017-01-13] MEDS: CARVEDILOL 6.25 MG TAB PO SCH (08:19)
--- NOTE | 2017-01-13 08:35 | SOAPPROG ---
SOAP Progress Note Assessment/Plan: Assessment: 1. GI BLEED - s/p colonoscopy to work-up - ileitis, colon polyp, and diverticula noted - no active bleeding - H/H stable - stools no longer bloody Plan: 1. Bleed - monitor stools and H/H - consider more w/u if bleeding resumes - will sign off, call with questions - my office will call patient with polyp pathology next week - 25 minutes spent in patient care, greater than 1/2 in counseling and coordination of care 01/13/17 08:32 Subjective: CC: f/u bleeding S: good appetite no more bloody stool no nausea no vomiting no fever no chills no chest pain feeling stronger, but still weak Objective: Vital Signs Temp Pulse Resp BP Pulse Ox 36.7 C 52 L 16 102/55 L 91 L 01/13/17 07:31 01/13/17 07:31 01/13/17 07:31 01/13/17 07:31 01/13/17 07:31 Laboratory Results 01/13/17 02:20 01/13/17 02:20 01/12/17 01/13/17 01/14/17 05:59 05:59 05:59 Intake Total 1150 Balance 1150 PT 19.6 SEC (12.0-15.0) H 01/13/17 02:00 INR 1.65 (0.83-1.16) H 01/13/17 02:00 Physical Exam - Physical Exam EENT: normal ENT inspection Respiratory: lungs clear Cardiac/Chest: regular rate, rhythm, No tachycardia Abdomen: normal bowel sounds, non-tender, soft Skin: normal color Extremities: normal range of motion Neuro/Psych: no motor/sensory deficits ICD10 Worksheet Patient Problems: Problems Problem Status Onset Dehydration Acute Diarrhea Acute Atrial fibrillation Acute Chronic Disease Mgmt/Transitional Care Acute Gastric ulcer with hemorrhage but without obstruction Acute
[2017-01-13 11:32] VITALS: BP 96/70; PULSE 60; TEMP 98.1; O2SAT 90
--- NOTE | 2017-01-13 13:20 | PDDCSUM ---
Discharge Summary Discharge Summary: DISCHARGE DIAGNOSES: -acute lower GI bleed, resolved -atrial fibrillation on chronic anticoagulation -type 2 diabetes mellitus in reasonably good control here -colon polyp incidentally noticed on colonoscopy and removed for biopsy CONSULTANTS: -Dr. Ruth Curtis PROCEDURES: Colonoscopy HOSPITAL COURSE SUMMARY: This patient to takes chronic ankle anticoagulation for AFib came in with some lower GI bleeding. The bleeding stopped spontaneously and she has remained hemodynamically stable and did not require transfusion. She was evaluated with colonoscopy after good prep which did not show a definitive sign of bleeding. There was some mild inflammation which was felt to possibly be post infectious as she had had a recent bout of diarrhea. There were diverticuli present but none were bleeding. The patient was further observed and resumed on her anticoagulation had no further bleeding here in the hospital. At this point she is felt stable for discharge to home and will follow up regarding her anticoagulation at the Cardiology Clinic this week. She is very aware to seek urgent attention back hospital if she has any further GI bleeding. PENDING TEST RESULTS: Biopsy results from a colon polyp MEDICATION CHANGES: None FOLLOW-UP PLAN: In Cardiology Clinic this week with repeat INR testing Dr. Curtis will follow up with the patient regarding results of her colon biopsy for polyp Greater than 35 minutes bedside and care coordination time today
--- NOTE | 2017-01-14 09:34 | ASDISCHSUM ---
Discharge Information Plan Status:Home with No Needs Medically Cleared to Leave: Discharge Date:01/13/2017 01:57 PM CM D/C Disposition:Home, Routine, Self-Care ADT D/C Disposition:Home, Routine, Self-Care Projected Discharge Date:01/13/2017 12:00 AM Transportation at D/C: Discharge Delay Reason: Follow-Up Date:01/13/2017 12:00 AM Discharge Slot: Final Diagnosis: Placement Information Patient Contact Information Contact Name:VADIM Relationship: Address:[address] Work Phone: [facility] Phone: [facility]/Zip Code:[place] [phone] Email: Financial Information Financial Class: Primary Plan Desc:MEDICARE INPATIENT Primary Plan Number:[id number] Secondary Plan Desc:JOVANNY INDEMNITY Secondary Plan Number:[id number] Assessment Information [facility] Initial CM Assessment Living Arrangements What is your living Answers: With Spouse arrangement? Who do you live with? Type Of Residence What kind of residence do Answers: House you live in? Discharge Plan Comments Coordination Status Comments Notes: CM met w/ pt and to discuss dispo planning. Pt reports that she will most likely d/c without any needs. Pt hopes to return back to work sondra. CM available if there are any changes. Date Signed: 01/12/2017 02:01 PM Electronically Signed By:Rylee Turcios Intervention Information Intervention Type:*CARVAJAL-Signed Date of Service:01/12/2017 02:52 PM Patient Type:Inpatient Staff Member:Jasmyn Moran Hours: Discipline: Severity: Comment: Intervention Type:*Occurence 72 Date of Service:01/11/2017 01:32 PM Patient Type:Inpatient Staff Member:Mary Alice Montoya Hours:0.25 Discipline: Severity:1 (0-1 Hours) Comment:Occ 72 for 01/11/2017 as patient disch arged 01/13/2017 13:15 (< 2 MN LOS after ling ent admission status changed from observation to inpatient status)
== END 2017-01-13 13:57 | disposition home or self-care (01) | DRG 379 ==
LOC: F3E 12:25 → F2W 18:00 → OBSVTOIN 01-12 13:46
PROVIDERS: ADMIT Internal Medicine Pulmonary Disease; ATTEND Internal Medicine Pulmonary Disease
DX: K92.2 Gastrointestinal hemorrhage, unspecified (principal); K62.1 Rectal polyp; I48.91 Unspecified atrial fibrillation; Z79.01 Long term (current) use of anticoagulants; E11.9 Type 2 diabetes mellitus without complications; G47.33 Obstructive sleep apnea (adult) (pediatric); I25.10 Atherosclerotic heart disease of native coronary artery without angina pectoris; E78.5 Hyperlipidemia, unspecified; I10 Essential (primary) hypertension; E66.9 Obesity, unspecified; Z96.653 Presence of artificial knee joint, bilateral; Z87.19 Personal history of other diseases of the digestive system; Z95.2 Presence of prosthetic heart valve
CPT/HCPCS: 85520-90; 96374; C1731; C1732; C1759; C1893; G0378; J0171; J0610; J1644; J1650; J1815; J2250; J2405; J2704; J2720; J3010; J3475; Q9967

== ENCOUNTER → 2017-01-17 | Outpatient (CLI) | payer OTHER | LOC: BHFA 14:15 | PROVIDERS: ATTEND Internal Medicine Cardiovascular Disease | DX: I47.1 Supraventricular tachycardia (principal); R06.02 Shortness of breath ==

== ENCOUNTER → 2017-10-30 | Outpatient (CLI) | payer OTHER | LOC: BMCIMAGING 07:37 | PROVIDERS: ATTEND Family Medicine | DX: Z12.31 Encounter for screening mammogram for malignant neoplasm of breast (principal); Z80.3 Family history of malignant neoplasm of breast ==

== ENCOUNTER → 2017-11-06 | Outpatient (CLI) | payer OTHER | LOC: BHFA 09:15 | PROVIDERS: ATTEND Internal Medicine Cardiovascular Disease | DX: I50.9 Heart failure, unspecified (principal); I48.91 Unspecified atrial fibrillation; R06.02 Shortness of breath; Z95.2 Presence of prosthetic heart valve ==

== ENCOUNTER → 2018-01-31 | Outpatient (CLI) | payer OTHER | LOC: FIMAGING 16:55 | PROVIDERS: ATTEND Internal Medicine Cardiovascular Disease | DX: I48.91 Unspecified atrial fibrillation (principal); Z79.899 Other long term (current) drug therapy ==

== ENCOUNTER 2018-06-14 08:34 | Inpatient (IN) | payer OTHER ==
--- NOTE | 2018-06-14 09:10 | EDPHY ---
H & P Stated Complaint: Irr HR since sun night, feeling weak, called MD - Personal History Current Tetanus/Diphtheria Vaccine: Yes Tetanus Vaccine Date: < 5 years - Medical/Surgical History Hx Asthma: No Hx Chronic Respiratory Disease: No Hx Diabetes: Yes Hx Cardiac Disease: Yes Hx Renal Disease: No Hx Cirrhosis: No Hx Alcoholism: No Hx HIV/AIDS: No Hx Splenectomy or Spleen Trauma: No Other PMH: afib, arthritis, CAD, MVR, TVR, hyperlipidemia, obesity, HTN, DM, fibromyalgia, cholecystectomy, bilateral TKA, hysterectomy, GIB, anemia, CHF. sleep apnea. - Social History Smoking Status: Never smoked <Tamika Mathur - Last Filed: 06/14/18 11:15> <Morgan Fournier - Last Filed: 06/14/18 14:45> Time Seen by Provider: 06/14/18 08:58 HPI/ROS: CHIEF COMPLAINT: "I don't feel well" x3 days HISTORY OF PRESENT ILLNESS: 67-year-old female history of diabetes, history of atrial fibrillation, history of ablation, chronic warfarin anticoagulation, complaining of not feeling well for the past 3 days. She was riding her horse, did not sustain trauma however when she was walking her horse back to the barn she felt lightheaded, dyspneic, week. These feelings continue. No chest pain. She contacted her turn out this morning who recommend she go to the ER for evaluation. This morning she checked her heart rate became concerned with her pulse rate of 110. No cold or flu-like symptoms. No fever no chills. No cough. No back pain. No urinary abnormality. No abdominal pain. No melena hematochezia. No nausea or vomiting. PRIMARY CARE PROVIDER: Jenny Cunningham . Cardiology: Dr. Moi Velasquez and Dr. Heladio Hurst REVIEW OF SYSTEMS: 10 systems reviewed and negative with the exception of the elements mentioned in the history of present illness PAST MEDICAL & SURGICAL HISTORY: Diabetes. Atrial fibrillation. Warfarin anticoagulation. Nighttime home oxygen. Hypertension. SOCIAL HISTORY: nonsmoker. PHYSICAL EXAM (Prior to examination, patient consented to physical exam, hands were washed and my usual and customary physical exam procedures followed) 1) GENERAL: Well-developed, well-nourished, alert and oriented. Appears anxious , she is crying. 2) HEAD: Normocephalic, atraumatic 3) HEENT: Pupils equal, round, reactive to light bilaterally. Sclera anicteric. 4) NECK: Full range of motion, no meningeal signs. Negative carotid bruit 5) LUNGS: Clear auscultation bilaterally, no wheezes, no rhonchi, no retractions. 6) HEART: Regular rate and rhythm, no murmur, no heave, no gallop. 7) ABDOMEN: No guarding, no rebound, no focal tenderness, negative McBurney's, negative Gaming's, negative Rovsing's, negative peritoneal sign, negative Homans no palpable cord 8) MUSCULOSKELETAL: Moving all extremities, no focal areas of tenderness, no obvious trauma. No peripheral edema or discoloration. 9) BACK: No CVA tenderness, no midline vertebral tenderness, no fluctuance, no step-off, no obvious trauma, no visual or palpable abnormality. 10) SKIN: No rash, no petechiae. 11) Psychiatric: Patient is oriented X 3, there is no agitation. DIFFERENTIAL DIAGNOSIS: In no particular order, including but not limited to myocardial ischemia, atrial fibrillation, pulmonary embolus, chest wall pain, pleural inflammation and pulmonary infectious causes. (Tamika Mathur) Constitutional: Initial Vital Signs Temperature (C) 36.6 C 06/14/18 08:48 Heart Rate 102 H 06/14/18 08:48 Respiratory Rate 18 06/14/18 08:48 Blood Pressure 99/76 L 06/14/18 08:48 O2 Sat (%) 92 06/14/18 08:48 O2 Delivery Mode Nasal Cannula O2 (L/minute) 2 Allergies/Adverse Reactions: No Known Allergies Allergy (Verified 06/14/18 08:48) Home Medications: Medication Instructions Recorded Estradiol [Estradiol 1 MG (*)] 1 mg PO MWF 04/19/15 Carvedilol [Coreg (*)] 6.25 mg PO BID 09/15/16 Warfarin Sodium [Coumadin 5MG (*)] 5 mg PO SUMOTUWETHSA 09/15/16 Amiodarone HCl [Pacerone (*)] 100 mg PO DAILY 01/09/17 Furosemide [Lasix 40 MG (*)] 40 mg PO DAILY 01/09/17 Lisinopril [Zestril 5 mg (*)] 5 mg PO DAILY 01/09/17 Warfarin Sodium [Coumadin 7.5MG 7.5 mg PO FR 06/14/18 (*)] Medical Decision Making <Tamika Mathur - Last Filed: 06/14/18 11:15> Consult/Admit Bed Type: Dr. Aguilar [facility], [place] [id number] <Morgan Fournier - Last Filed: 06/14/18 14:45> - Diagnostics Imaging Results: Imaging Impressions Chest X-Ray 06/14/18 09:07 Impression: 1. Mild CHF/fluid overload suspected. 2. Large hiatal hernia with bibasilar compressive atelectatic change left side more than right. Imaging Impressions Chest X-Ray 06/14/18 09:07 Impression: 1. Mild CHF/fluid overload suspected. 2. Large hiatal hernia with bibasilar compressive atelectatic change left side more than right. Images reviewed myself (Tamika Mathur) ED Course/Re-evaluation: After evaluating the patient I discussed case with secondary supervising physician Dr. Morgan Fournier in the ER who also evaluated the patient , please see his note. Will check cardiac studies including troponin, EKG. (Tamika Mathur) Other Provider: PHYSICIAN DOCUMENTATION: The patient was evaluated and managed by the Physician Sales Representative [employer] and myself. I have reviewed the chart and agree with the findings and plan of care as documented. In addition, I examined the patient myself at 935. History confirmed as intermittent chest pain over the last couple of days, has dizziness and fatigue now. Physical findings as follows: irregular rate. 12-lead EKG interpreted by me; official reading is in computer system. My interpretation is atrial fibrillation with abnormal diffuse T-wave inversions which are new from previous EKG. Patient has symptoms concerning for cardiac ischemia given her electrocardiographic abnormalities. No aspirin as she is currently anticoagulated on warfarin. [facility] consultation; Patrick here at 1027. Admit for further evaluation. I am the secondary supervising physician. (Morgan Fournier) - Data Points Laboratory Results: Laboratory Results 06/14/18 09:20 06/14/18 09:20 06/14/18 06/14/18 06/14/18 09:40 09:26 09:20 WBC RBC Hgb Hct MCV MCH MCHC RDW Plt Count MPV Neut % (Auto) Lymph % (Auto) [place] % (Auto) Eos % (Auto) Baso % (Auto) Nucleat RBC Rel Count Absolute Neuts (auto) Absolute Lymphs (auto) Absolute Monos (auto) Absolute Eos (auto) Absolute Basos (auto) Absolute Nucleated RBC Immature Gran % Immature Gran # RBC/WBC/PLT Morphology Platelet Estimate PT 23.0 SEC H SEC (12.0-15.0) INR 2.03 H (0.83-1.16) APTT 30.7 SEC SEC (23.0-38.0) D-Dimer 0.69 ug/mLFEU H ug/mLFEU (0.00-0.50) Sodium Potassium Chloride Carbon Dioxide Anion Gap BUN Creatinine Estimated GFR Glucose Calcium POC Troponin I 0.03 ng/mL ng/mL (0.00-0.08) NT-Pro-B Natriuret Pep 4940 pg/mL H pg/mL (0-125) 06/14/18 06/14/18 09:20 09:20 WBC 8.90 10^3/uL 10^3/uL (3.80-9.50) RBC 4.08 10^6/uL L 10^6/uL (4.18-5.33) Hgb 12.6 g/dL g/dL (12.6-16.3) Hct 37.8 % L % (38.0-47.0) MCV 92.6 fL fL (81.5-99.8) MCH 30.9 pg pg (27.9-34.1) MCHC 33.3 g/dL g/dL (32.4-36.7) RDW 14.7 % % (11.5-15.2) Plt Count 177 10^3/uL 10^3/uL (150-400) MPV 11.0 fL fL (8.7-11.7) Neut % (Auto) 88.6 % H % (39.3-74.2) Lymph % (Auto) 4.8 % L % (15.0-45.0) [place] % (Auto) 5.2 % % (4.5-13.0) Eos % (Auto) 0.8 % % (0.6-7.6) Baso % (Auto) 0.4 % % (0.3-1.7) Nucleat RBC Rel Count 0.0 % % (0.0-0.2) Absolute Neuts (auto) 7.89 10^3/uL H 10^3/uL (1.70-6.50) Absolute Lymphs (auto) 0.43 10^3/uL L 10^3/uL (1.00-3.00) Absolute Monos (auto) 0.46 10^3/uL 10^3/uL (0.30-0.80) Absolute Eos (auto) 0.07 10^3/uL 10^3/uL (0.03-0.40) Absolute Basos (auto) 0.04 10^3/uL 10^3/uL (0.02-0.10) Absolute Nucleated RBC 0.00 10^3/uL 10^3/uL (0-0.01) Immature Gran % 0.2 % % (0.0-1.1) Immature Gran # 0.02 10^3/uL 10^3/uL (0.00-0.10) RBC/WBC/PLT Morphology TNP Platelet Estimate TNP PT INR APTT D-Dimer Sodium 138 mEq/L mEq/L (135-145) Potassium 4.2 mEq/L mEq/L (3.5-5.2) Chloride 106 mEq/L mEq/L (97-110) Carbon Dioxide 23 mEq/l mEq/l (22-31) Anion Gap 9 mEq/L mEq/L (6-14) BUN 30 mg/dL H mg/dL (7-23) Creatinine 1.1 mg/dL H mg/dL (0.6-1.0) Estimated GFR 49 Glucose 242 mg/dL H mg/dL (70-100) Calcium 9.5 mg/dL mg/dL (8.5-10.4) POC Troponin I NT-Pro-B Natriuret Pep Medications Given: Discontinued Medications Aspirin (Aspirin) 324 mg PO EDNOW ONE Stop: 06/14/18 09:17 Last Admin: 06/14/18 09:24 Dose: 324 mg Morphine Sulfate (Morphine) 2 mg IVP EDNOW ONE Stop: 06/14/18 09:22 Last Admin: 06/14/18 09:24 Dose: 2 mg Perflutren Lipid Microsphere (Definity) 0 mg IV ONCE ONE Stop: 06/14/18 12:01 Last Admin: 06/14/18 12:09 Dose: Not Given Point of Care Test Results: Chemistry 06/14/18 09:26 POC Troponin I 0.03 ng/mL ng/mL (0.00-0.08) Departure <Tamika Mathur - Last Filed: 06/14/18 11:15> <Morgan Fournier - Last Filed: 06/14/18 14:45> - Departure Disposition: [facility] Inpatient Acute Clinical Impression: Chest pain Qualifiers: Chest pain type: unspecified Qualified Code(s): R07.9 - Chest pain, unspecified Condition: Fair
[2018-06-14] MEDS ORDERED: ASPIRIN 81 MG CHEWABLE TAB PO ONE (09:16)
[2018-06-14 09:45] LABS: PLATELET COUNT 177 10^3/uL (150-400)
[2018-06-14 09:54] LABS: INR 2.03 (0.83-1.16)
[2018-06-14] MEDS ORDERED: NITROGLYCERIN 0.4 MG BTL SL PRN (09:58)
--- NOTE | 2018-06-14 09:58 | CPEKG ---
Test Reason : OPEN Blood Pressure : / mmHG Vent. Rate : 101 BPM Atrial Rate : 101 BPM P-R Int : 124 ms QRS Dur : 082 ms QT Int : 450 ms P-R-T Axes : 000 -57 200 degrees QTc Int : 584 ms Atrial fibrillation Left anterior fascicular block Low voltage, extremity leads Abnormal T, probable ischemia, widespread Prolonged QT interval Confirmed by Morgan Fournier ([id number]) on 06/14/2018 9:57:47 AM Referred By: Morgan Fournier Confirmed By:Morgan Fournier
--- NOTE | 2018-06-14 11:46 | GCON ---
[f rep st] CONSULTATION CARDIOLOGY CONSULTATION DATE OF CONSULTATION: 06/14/2018 REQUESTING PHYSICIAN: Dr. Eden Matta. REASON FOR CONSULTATION: A history of valvular heart disease, atrial fibrillation and new ECG changes. HISTORY: Ms. Valentino is a 67-year-old woman with a history of atrial fibrillation , valvular heart disease, chronic combined systolic/diastolic CHF, and previously documented non-flow limiting coronary atherosclerosis. She presents to the emergency room today saying that she has not felt well for the past 2 days. She reports a general sense of fatigue. She has been monitoring her blood pressure at home and has obtained readings at or slightly below 100 mmHg systolic. This is unusual for her. She says that she had a few brief episodes of far left lateral chest discomfort a couple of weeks ago. She had similar discomfort today after arriving at the emergency room. She has not had any rapid palpitations, lightheadedness or near syncope. She has not noticed significantly increased dyspnea with physical activity and has not demonstrated any evidence of fluid retention. PAST CARDIAC HISTORY AND TESTING: She has a history of valvular heart disease. In 2006, she underwent bioprosthetic mitral valve replacement for severe mitral regurgitation. She also had a tricuspid annuloplasty and intraoperative maze procedure. She continued to demonstrate atrial fibrillation and underwent an ablation procedure with Dr. Velasquez in the summer of 2016. A cardiac catheterization performed in 2014 demonstrated coronary atherosclerosis with up to 40% stenosis in the mid left anterior descending. She has a nonischemic cardiomyopathy with an ejection fraction of 40% to 45% by previous studies. Her most recent echocardiogram is from December 2016. Her ejection fraction on that study was reported as 50% to 55%. She had moderate left atrial enlargement and no regurgitation or stenosis of her prosthetic mitral valve. She had moderate tricuspid regurgitation with an estimated PA systolic pressure of 50 mmHg. Her usual senior quality technician at [facility] is Dr. Heladio Dangelo. MEDICATIONS: Please refer to the electronic record. Her relevant cardiac medications consist of: 1. Amiodarone 200 mg daily. 2. Carvedilol 12.5 mg twice daily. 3. Lisinopril 5 mg daily. 4. Furosemide 40 mg daily. ALLERGIES: No known drug allergies. PAST MEDICAL HISTORY: In addition to her cardiac issues, her past medical history includes chronic renal insufficiency, hypertension and diet-controlled diabetes. PAST SURGICAL HISTORY: In addition to her open heart surgery, she has undergone cholecystectomy and bilateral total knee replacements. FAMILY HISTORY: Noncontributory. SOCIAL HISTORY: She is . Her accompanies her to the hospital today. She is a nonsmoker and does not consume significant amounts of alcohol. She participates in [employer] riding horse competitions. REVIEW OF SYSTEMS: Notable for the generalized fatigue that prompted this hospital encounter. Otherwise, a 10-point review is negative. PHYSICAL EXAMINATION: VITAL SIGNS: Heart rate in the 80s with sinus rhythm on the monitor. Blood pressure 102/76. O2 saturation 96% on 2 liters by nasal cannula. GENERAL: Well-developed, mildly obese woman in no acute distress. She is alert and oriented x3. HEAD AND NECK: No scleral icterus. Mucous membranes moist. Carotid pulses 2+ without bruits. There is no JVD. CHEST: Lung gray clear bilaterally. CARDIAC: Regular rate and rhythm with a normal S1 and S2. There is no murmur or gallop. ABDOMEN: Soft, nontender, nondistended with normal bowel sounds. EXTREMITIES: Two-plus pulses and no peripheral edema. ECG: Her ECG demonstrates what appears to be sinus rhythm at 101 BPM. She has a left anterior fascicular block. There are no Q-waves. She has striking T- wave inversions in leads 1, 2 and V2 through V6. There is no ST-segment elevation or depression. LABORATORY STUDIES: Her sodium is 138 with potassium 4.2, BUN 30 and creatinine at 1.1. Her BNP is elevated at 4940. Her CBC demonstrates a white blood cell count of 8.9 with hemoglobin and hematocrit of 12.6 and 37.8, platelet count is 177,000. Her INR is therapeutic at 2.03. IMPRESSION: Ms. Valentino is a 67-year-old woman who presents with generalized fatigue. She has a cardiac history as detailed above. She has significant new ECG findings which could be consistent with an ischemic process. However, she has not had any recent chest pain syndrome that would be concerning for angina. She has an elevated BNP and prominent interstitial markings on chest x-ray but appears to be generally volume compensated with respect to her chronic combined systolic/diastolic CHF. PLAN: The patient is being admitted to the hospital for observation. Serial troponins will be sent. An urgent echocardiogram will be requested to assess for any new wall motion abnormalities. I suspect that she will end up requiring a repeat cardiac catheterization at some point during her hospital stay. The findings of her echocardiogram will be used to guide decision making about whether or not cardiac catheterization should take place today. /[id number]/MODL MTDD
[2018-06-14] MEDS ORDERED: PERFLUTREN LIPID MICROSPHERES 1.1 MG/ML VIAL IV ONE (12:00)
--- NOTE | 2018-06-14 12:36 | ECHO ---
[email or web address] [address] [address] Main: [phone] Fax: Transthoracic Echocardiogram Name: RACH AVENDANO MR#: [id number] Study Date: 06/14/2018 Study Time: 10:56 AM Date of : 1950 Age: 67 year(s) Height: 165.1 cm (65 in.) Weight: 103.42 kg (228 lb.) BSA: 2.09 m2 Gender: Female Examination: Echo with Definity Indication: Coronary artery disease, abnormal ECG Image Quality: Adequate Contrast: 0.165 mg I.V. dose of Definity was administered to improve endocardial border definition. Requested by: Ajit Nguyen BP: 102 mmHg/76 mmHg Heart Rate: Rhythm: Indication: Coronary artery disease, abnormal ECG Procedure Staff Allergist Immunologist: Sanjana Maguire [facility] Reading Physician: Ajit Nguyen MD Requesting Provider: Conclusions: Normal size left ventricle. Mild to moderate LVH. Severely reduced systolic LV function. EF is 14 %. The mid anterior, mid anteroseptal, mid inferoseptal, mid inferior, mid inferolateral, mid anterolateral, apical anterior, apical septal, apical inferior, apical lateral and apex wall segments are hypokinetic. The left atrium is severely dilated. The right atrium is moderately dilated. A bioprothetic mitral valve is in place. Trivial MV prosthesis regurgitation. Trivial to mild aortic valve regurgitation. Moderate tricuspid regurgitation is present. Right ventricular systolic pressure measures 54mmHg. No pericardial effusion. compared to 01/10/2017, LV function is markedly worse. Measurements: Chambers Valvular Assessment AV/MV Valvular Assessment TV/PV Normal Normal Normal Name Value Range Name Value Range Name Value Range Ao Mesha (MM): 3.5 cm (2.2 cm-3.7 AV Vmax: 1.49 m/s (1 m/s-1.7 TR Vmax: 3.32 mm/s ( - ) cm) m/s) TR PGmax: 44 mmHg ( - ) IVSd (2D): 1.3 cm (0.6 cm-1.1 AV maxP mmHg ( - ) syst. PAP: 54 mmHg ( - ) cm) AV meanP mmHg ( - ) PV Vmax: 0.84 m/s (0.6 m/s-0.9 LVDd (2D): 4.0 cm (3.9 cm-5.3 MERLIN (VTI): 1.6 cm ( - ) m/s) cm) MV meanP mmHg ( - ) PV PGmax: 3 mmHg ( - ) LVDs (2D): 3.5 cm (2.1 cm-4 MV PHT: 0.080 s ( - ) cm) MVA (Vmax): 1.1 m/s ( - ) Patient: RACH AVENDANO Study Date: 06/14/2018 Page 1 of 3 10:56 AM LVPWd (2D): 1.2 cm ( - ) MVA (PHT): 2.8 s ( - ) LVOTd 2.0 cm 2.0 cm mm LVEF (BP): 14 % (>=55 %) RVDd(2D): 3.8 cm (1.9 cm-3.8 cmmm) Continued Measurements: Chambers Valvular Assessment AV/MV Valvular Assessment TV/PV Name Value Name Value Name Value LADs Lon.0 cm MV VTI: 40.40 cm CVP (est.): 10 mmHg LA Area: 36.8 cm2 LA Volume: 144 ml LA Volume Index: 68.9 ml/m2 RA Area: 22.0 cm2 Findings: Left Ventricle: Normal size left ventricle. Mild to moderate LVH. Severely reduced systolic LV function. EF is 14 %. The mid anterior, mid anteroseptal, mid inferoseptal, mid inferior, mid inferolateral, mid anterolateral, apical anterior, apical septal, apical inferior, apical lateral and apex wall segments are hypokinetic. All remaining scored wall segments are normal. Unable to assess diastolic dysfunction. Right Ventricle: Normal size right ventricle. Mildly reduced RV function. Left Atrium: The left atrium is severely dilated. Right Atrium: The right atrium is moderately dilated. Mitral Valve: A bioprothetic mitral valve is in place. No prosthesis stenosis. Trivial MV prosthesis regurgitation. Aortic Valve: The aortic valve is tri-leaflet. Trivial to mild aortic valve regurgitation. No aortic valve stenosis is present. Tricuspid Valve: The tricuspid valve appears normal. Moderate tricuspid regurgitation is present. Right ventricular systolic pressure measures 54mmHg. The pulmonary artery pressure is moderately increased. Pulmonic Valve: Pulmonary valve not well visualized. Trivial to mild pulmonic valve regurgitation. Aorta: Normal size aortic root measuring 3.5 cm. IVC: The IVC is mildly dilated. Pericardium: No pericardial effusion. (No Signature Object) Wall Motion Scores Patient: RACH AVENDANO Study Date: 06/14/2018 Page 2 of 3 10:56 AM Patient: RACH AVENDANO Study Date: 06/14/2018 Page 3 of 3 10:56 AM [id number]
[2018-06-14] MEDS ORDERED: DIAZEPAM 5 MG TAB PO ONE (13:24)
[2018-06-14] MEDS ORDERED: FAMOTIDINE 20 MG TAB PO ONE (13:24)
[2018-06-14] MEDS ORDERED: diphenhydrAMINE 25 MG CAP PO ONE ×2 (13:24→15:04)
--- NOTE | 2018-06-14 13:28 | PDPROPOC ---
Sedation Plan of Care Sedation Plan of Care: vital signs stable, mental status noted, patient educated of risks, benefits, alternatives, patient can tolerate sedation ASA Classification: ASA 2 Planned drugs: fentanyl, midazolam Mallampati Score: Class 2 Mallampati Reference Image: Patient passed 3-3-2 rule?: Yes
--- NOTE | 2018-06-14 13:28 | PDHPUP ---
History & Physical Update H&P update statement: This history and physical update is based on an assessment of the patient which was completed after admission or registration (within 24 hours), but prior to the surgery/procedure. H&P update: H&P reviewed & patient examined, no change in patient's condition since H&P completed
[2018-06-14] MEDS ORDERED: fentaNYL 100 MCG/2 ML INJ ONE (14:54)
[2018-06-14] MEDS ORDERED: LIDOCAINE 1% 300 MG/30 ML SDV ONE (14:54)
[2018-06-14] MEDS ORDERED: MIDAZOLAM 2 MG/2 ML VIAL ONE (14:55)
[2018-06-14] MEDS ORDERED: IOPAMIDOL (ISOVUE-370) 150 ML BTL IV ONE ×2 (14:55→16:22)
[2018-06-14] MEDS ORDERED: ASPIRIN EC 325 MG TAB PO ONE (15:04)
[2018-06-14] MEDS ORDERED: FAMOTIDINE 20 MG TAB ONE (15:04)
[2018-06-14] MEDS ORDERED: DIAZEPAM 5 MG TAB ONE (15:05)
--- NOTE | 2018-06-14 15:11 | GHP ---
[f rep st] HISTORY AND PHYSICAL DATE OF ADMISSION: 06/14/2018 CHIEF COMPLAINT: Chest pain, shortness of breath. HISTORY OF PRESENT ILLNESS: A pleasant 67-year-old female with atrial fibrillation, valvular heart disease, chronic systolic/diastolic heart failure, and non-flow limiting coronary disease. She presented to the ER today stating she has not felt well over the last couple of days. She rode her horse on Sunday, and became very short of breath and fatigued, which is unlike her. She was very exhausted trying to walk the horse to the barn. At work she is not motivated because she does not feel well. She has had a few episodes of left-sided dull chest pain in the past couple of weeks, lasting less than a couple of minutes. She had an episode today when in the ER. Denies fevers, chills, or sweats. No lower extremity or abdominal swelling. She fell a week ago with subsequent large bruise on her right thigh. REVIEW OF SYSTEMS: I completed a 10-point review of systems, negative except in HPI. PAST MEDICAL HISTORY: 1. Severe MR, status post bioprosthetic mitral valve replacement 2006. 2. Tricuspid annuloplasty and maze procedure. 3. Cardiac ablation 2016. 4. Cardiac cath 2014: 40% stenosis in mid LAD. 5. Nonischemic cardiomyopathy with EF of 40% to 45%. Most recent echo December 2016, showed EF of 50% to 55%. PAST SURGICAL HISTORY: Bilateral TKA, total abdominal hysterectomy, toenail removal, cardiac ablation. SOCIAL HISTORY: Lives in [place] with her . 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 Occasional alcohol. No tobacco or illicits. FAMILY HISTORY: Maternal grandfather with colon cancer. Maternal grandmother with breast cancer. Mother committed suicide. HOME MEDICATIONS: Amiodarone 200 daily, Coreg 12.5 twice a day, lisinopril 5 daily, Lasix 40 daily. ALLERGIES: None. PHYSICAL EXAMINATION: VITAL SIGNS: Temperature 36.6, blood pressure is 102/76 , heart rate is in the 90s, respirations 20, 90% on 3 L. GENERAL: Overweight, tearful. No chest pain currently. CV: Irregularly irregular. LUNGS: A few crackles bilaterally. GI: Soft, nontender, nondistended. Positive bowel sounds. : No Nick. MUSCULOSKELETAL: Hematoma, right thigh. NEURO: 2 through 12 intact. PSYCH: Alert and oriented x3. Tearful. LABS/DIAGNOSTICS: WBC 8, hemoglobin 12, hematocrit 37, platelets 177. D-dimer 0.69. INR is 2, PT is 23. Sodium 138, potassium 4.2, chloride 106, carbon dioxide 23, creatinine is 1.1, glucose 242, calcium 9.5. Troponin 0.03. BNP is 4940. Echocardiogram 06/14/2018: Severely reduced LV function, EF 14%, mid anterior/anteroseptal/inferoseptal/inferior are all hypokinetic. LA is severely dilated. RA is moderately dilated. Bioprosthetic mitral valve in place. RVSP 54 mmHg. No effusion. EKG is personally reviewed by me. Widespread T-wave inversions anterolateral leads. ASSESSMENT AND PLAN: 1. Acutely decompensated systolic heart failure: EF 14%. Initial troponin is negative, but diffuse TWI on EKG. Dr. Nguyen will cath this afternoon. Discuss medical management with Dr. Nguyen after procedure. 2. Atrial fibrillation: Amiodarone, Coumadin. 3. Diabetes: Sliding scale insulin. Hold metformin with contrast. 4. Diet: N.p.o. for procedure. 5. Deep venous thrombosis prophylaxis: She is on Coumadin. DISPOSITION: Patient warrants inpatient admission for suspected takotsubo cardiomyopathy, warranting catheterization and medical management. /[id number]/MODL MTDD
[2018-06-14] MEDS ORDERED: D50W 25 GM/50 ML SYR IVP PRN (15:26)
[2018-06-14] MEDS ORDERED: ONDANSETRON DISINTEGRATING 4 MG TAB ONE (15:46)
[2018-06-14] MEDS ORDERED: BIVALIRUDIN 250 MG/5 ML VIAL IV ONE (16:14)
[2018-06-14] MEDS ORDERED: PRASUGREL HCL 10 MG TAB ONE (16:48)
[2018-06-14] MEDS ORDERED: ATROPINE SULFATE 1 MG/10 ML SYR IVP PRN (16:51)
[2018-06-14] MEDS ORDERED: ONDANSETRON 4 MG/2 ML VIAL IVP PRN (16:51)
[2018-06-14] MEDS ORDERED: LORazepam 2 MG/ML INJ IVP PRN (16:51)
[2018-06-14] MEDS ORDERED: PRASUGREL HCL 10 MG TAB PO ONE (16:51)
--- NOTE | 2018-06-14 17:00 | PDDXCAT ---
Diagnostic Cath Note - . Date: 06/14/18 Roll Edge Machine Operator: Patrick Indication: other (New, severe LV dysfunction and abnormal ECG.) - Procedure Access: right groin Procedure: left heart catheterization, coronary angiography, left ventriculogram , other (PCI of the LAD) - Materials Left Heart Cath size: 4F Left Heart Cath materials: standard multipack (JL4, JR4, pigtail) - Findings-Left Heart Catheterization LM: Normal. LAD: Mild irregularities in the proximal LAD and proximal principal diagonal branch. The mid-LAD has a focal 80-90% stenosis. LCX: Mild irregularities. RCA: Mild irregularities. LVEF: 25% Wall motion: Severe hypokinesis of the apical half of the left ventricle with wall motion abnormalities crossing coronary territory distributions. Complications: None Estimated blood loss: <50ml Closure method: Angioseal Assessment: 1) Coronary artery disease as described above. 2) Successful PCI of the LAD using a single drug-coated stent. 3) Cardiomyopathy with severely reduced left ventricular systolic function. Note: The patient had a mechanical fall down 8 stairs at her home about a week ago. She sustained a large hematoma over the lateral aspect of her right thigh. Immediately after falling, the patient says she felt like she was in shock. She was trembling and felt cold. Her ECG findings, left ventricular systolic dysfunction, pattern of diffuse regional wall motion abnormalities, and the lack of a significant chest pain syndrome are suggestive of a stress cardiomyopathy. It may be that her fall and subsequent cardiomyopathy prompted today's evaluation and that the high-grade mid-LAD lesion was actually discovered incidentally. Intervention: Based on the patient's clinical history and diagnostic angiography, the decision was made to perform PCI of the mid-LAD. The previously placed 4 Israeli sheath was exchanged for a 6 Israeli sheath. Intravenous Angiomax was administered. A 6 Israeli CLS 3.5 guide catheter was advanced to the left main ostium. An Intuition guidewire was advanced to the apical portion of the LAD. Predilatation of the target lesion was performed using a 2.5 x 8 mm Emerge balloon. A 2.75 x 20 mm Synergy drug-coated stent was then advanced into position and deployed at high pressure. Final angiograms demonstrated 0% residual stenosis and RAJEEV-III flow. Patient Problems: Problems Problem Status Onset Chest pain Acute Atrial fibrillation Acute Chronic Disease Mgmt/Transitional Care Acute Dehydration Acute Diarrhea Acute Gastric ulcer with hemorrhage but without obstruction Acute
[2018-06-14] MEDS: NS 1,000 ML IV SCH ×2 (17:19→23:22)
[2018-06-14] MEDS: WARFARIN SODIUM 7.5 MG TAB PO SCH ×2 (17:20→18:48)
[2018-06-14] MEDS: ASPIRIN 325 MG TAB PO SCH (17:25)
[2018-06-14] MEDS: INSULIN LISPRO 100 UNIT/ML SC SCH (19:03)
[2018-06-14] MEDS: HYDROCODONE/APAP 5/325 TAB PO PRN (21:39)
[2018-06-14] MEDS: TEMAZEPAM 15 MG CAP PO PRN (23:22)
[2018-06-15] MEDS: ASPIRIN 325 MG TAB PO SCH (07:35)
[2018-06-15] MEDS: INSULIN LISPRO 100 UNIT/ML SC SCH ×3 (07:35→17:43)
[2018-06-15] MEDS: PRASUGREL HCL 10 MG TAB PO SCH (07:35)
[2018-06-15] MEDS: ATORVASTATIN CALCIUM 40 MG TAB PO SCH (07:35)
--- NOTE | 2018-06-15 08:44 | HOSPPROG ---
Hospitalist Progress Note Assessment/Plan: #I-CDM: stented yesterday. IV Lasix -will need BB and ACEI as BP tolerates -monitor wt, I/Os, lytes #CAD: PCI to LAD. Prasugrel, ASA, statin #Atrial fibrillation: amiodarone. INR jumped to 3; hold coumadin today. will have to watch closely with amio -cardioversion once more euvolemic #Diet:cardiac #Disp: inpatient admission for monitored diuresis Subjective: very fatigued with walking to bathroom Objective: Vital Signs Temp Pulse Resp BP Pulse Ox 36.6 C 99 12 105/70 93 06/15/18 07:14 06/15/18 07:14 06/15/18 07:14 06/15/18 07:14 06/15/18 07:14 Laboratory Results 06/15/18 03:14 06/15/18 03:14 06/14/18 06/15/18 06/16/18 05:59 05:59 05:59 Intake Total 1600 Balance 1600 PT 31.0 SEC (12.0-15.0) H 06/15/18 03:14 INR 3.00 (0.83-1.16) H 06/15/18 03:14 - Time Spent With Patient Time Spent with Patient: greater than 35 minutes Time Spent with Patient: Greater than 35 minutes spent on this patients care, greater than 50% of time spent counseling, educating, and coordinating care regarding the above mentioned plan. - Physical Exam Constitutional: obese Eyes: PERRL Ears, Nose, Mouth, Throat: moist mucous membranes Cardiovascular: regular rate and rhythym, edema (up to shins) Respiratory: no respiratory distress Gastrointestinal: normoactive bowel sounds Genitourinary: no bladder fullness Skin: warm Musculoskeletal: full muscle strength Neurologic: AAOx3, CN II-XII Intact Psychiatric: interacting appropriately ICD10 Worksheet Patient Problems: Problems Problem Status Onset Chest pain Acute Atrial fibrillation Acute Chronic Disease Mgmt/Transitional Care Acute Dehydration Acute Diarrhea Acute Gastric ulcer with hemorrhage but without obstruction Acute
[2018-06-15] MEDS ORDERED: ASPIRIN EC 325 MG TAB PO SCH (09:00)
[2018-06-15] MEDS ORDERED: FUROSEMIDE 40 MG TAB PO SCH (09:00)
[2018-06-15] MEDS ORDERED: AMIODARONE HCL 200 MG TAB PO SCH ×2 (09:45)
[2018-06-15] MEDS ORDERED: ASPIRIN 81 MG CHEWABLE TAB PO SCH (09:45)
[2018-06-15] MEDS: FUROSEMIDE 20 MG/2 ML VIAL IVP SCH ×2 (10:03→12:33)
--- NOTE | 2018-06-15 10:23 | SOAPPROG ---
SOAP Progress Note Assessment/Plan: Assessment: 1. Cardiomyopathy. Her ejection fraction is estimated by echocardiography under 20% and by cardiac catheterization at 25%. This is associated with recently discovered coronary artery disease. She is status post PCI and stenting. It is not clear whether not her cardiomyopathy reflects her underlying CAD or is potentially a result of a recent trauma and subsequent stress induced cardiomyopathy. She appears to be mildly volume overloaded at the present time. Additionally, her hemodynamics appear to be a little soft. 2. Coronary artery disease status post PCI and stenting of the mid LAD. 3. Valvular heart disease. She is 12 years out from bioprosthetic mitral valve replacement which was performed in conjunction with a tricuspid annuloplasty. 4. Paroxysmal atrial fibrillation. At the time of her cardiovascular surgery she had a surgical Maze performed. She required an additional catheter ablation for recurrent atrial fibrillation in 2017. She states that since then she has not had recurrent atrial arrhythmias. As an outpatient she has been treated with amiodarone and systemic anticoagulation in the form of warfarin. INRs have been therapeutic since early April. She appears to be in atrial fibrillation at the present time with a controlled ventricular response. 5. Mild, acute systolic congestive heart failure. 6. Hypertension. As noted above, her hemodynamics have been such that her typical antihypertensive regimen has not been reinstituted. 7. Diet-controlled type 2 diabetes mellitus. Plan: 1. I would like to keep her in the hospital for another several days. 2. I have given her IV Lasix today. 3. I have written to restart her amiodarone. 4. I have lowered her aspirin dose down to 81 mg daily. 5. We will carefully follow electrolytes during the period of diuresis. 6. Depending on her hemodynamics, we may consider reinstituting beta-maurice therapy and/or Ashwin inhibitor therapy. 7. We will plan to continue monitoring her on telemetry. 8. Once she is a little more euvolemic we may consider a cardioversion in an attempt to restore sinus rhythm. 9. We will follow along with you Subjective: The patient was seen and examined. Her chart was reviewed. She states that she is feeling better today. She has no pain at her right groin access site. She continues to have a modest amount of lower extremity edema and notes that she has not been given her typical home medications. She denies ongoing chest discomfort. She notes no significant breathlessness however she has not been up walking yet. Objective: Vital Signs Temp Pulse Resp BP Pulse Ox 36.6 C 99 12 105/70 93 06/15/18 07:14 06/15/18 07:14 06/15/18 07:14 06/15/18 07:14 06/15/18 07:14 Laboratory Results 06/15/18 03:14 06/15/18 03:14 06/14/18 06/15/18 06/16/18 05:59 05:59 05:59 Intake Total 1600 Balance 1600 PT 31.0 SEC (12.0-15.0) H 06/15/18 03:14 INR 3.00 (0.83-1.16) H 06/15/18 03:14 Physical Exam - Physical Exam General Appearance: WD/WN, no apparent distress Neck: non-tender, full range of motion Respiratory: crackles (At the bases), No respiratory distress, No accessory muscle use, No decreased breath sounds Cardiac/Chest: regular rate, rhythm, edema (Bilateral, [place] edema appreciated to the level of the mid teresa) Peripheral Pulses: 1+: carotid (R), carotid (L) Abdomen: non-tender, soft Pelvic Exam: deferred Rectal: deferred Neuro/Psych: alert, oriented x 3 ICD10 Worksheet Patient Problems: Problems Problem Status Onset Chest pain Acute Atrial fibrillation Acute Chronic Disease Mgmt/Transitional Care Acute Dehydration Acute Diarrhea Acute Gastric ulcer with hemorrhage but without obstruction Acute
--- NOTE | 2018-06-15 10:29 | ASMTCMCOM ---
CM Note CM Note Notes: Pt's chart reviewed for d/c planning. Pt is a 67 y/o female with significant mendical hx oincluding CAD and CHF, who came to the ED yesterday due to not feeling well for the last 3 days. She's felt light headed, dyspneic, weak and yesterday had a pulse rate of 110. 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 No CM needs have been identified; CM will follow for changes. D/C Plan: Independent. Date Signed: 06/15/2018 10:29 AM Electronically Signed By:Margi Hernadez
[2018-06-15] MEDS: TEMAZEPAM 15 MG CAP PO PRN (22:39)
[2018-06-16] MEDS: HYDROCODONE/APAP 5/325 TAB PO PRN (00:01)
[2018-06-16 05:01] LABS: INR 2.72 (0.83-1.16); PROTIME(PATIENT) 28.8 SEC (12.0-15.0)
[2018-06-16] MEDS: INSULIN LISPRO 100 UNIT/ML SC SCH ×3 (08:16→17:56)
--- NOTE | 2018-06-16 08:45 | HOSPPROG ---
Hospitalist Progress Note Assessment/Plan: #I-CDM: stented yesterday. IV Lasix -add back BB and ACEI as BP tolerates -monitor wt, I/Os, lytes #CAD: PCI to LAD. Prasugrel, ASA, statin #Atrial fibrillation: amiodarone, coumadin. Cardioversion once more euvolemic #Depressed mood: situation. Offered spiritual care, declined. Has support from her mandaeism #Diet:cardiac #Disp: inpatient admission for monitored diuresis Subjective: fatigued Objective: Vital Signs Temp Pulse Resp BP Pulse Ox 36.5 C 92 16 113/77 95 06/16/18 07:27 06/16/18 07:27 06/16/18 07:27 06/16/18 07:27 06/16/18 07:27 Laboratory Results 06/15/18 03:14 06/16/18 03:13 06/15/18 06/16/18 06/17/18 05:59 05:59 05:59 Intake Total 1600 490 300 Output Total 745 Balance 1600 -255 300 PT 28.8 SEC (12.0-15.0) H 06/16/18 03:13 INR 2.72 (0.83-1.16) H 06/16/18 03:13 - Time Spent With Patient Time Spent with Patient: greater than 35 minutes Time Spent with Patient: Greater than 35 minutes spent on this patients care, greater than 50% of time spent counseling, educating, and coordinating care regarding the above mentioned plan. - Physical Exam Constitutional: no apparent distress, obese Eyes: PERRL Ears, Nose, Mouth, Throat: moist mucous membranes Cardiovascular: regular rate and rhythym, edema Respiratory: no respiratory distress Gastrointestinal: normoactive bowel sounds Genitourinary: no bladder fullness Skin: warm Musculoskeletal: full muscle strength Neurologic: AAOx3, CN II-XII Intact Psychiatric: interacting appropriately, flat affect ICD10 Worksheet Patient Problems: Problems Problem Status Onset Chest pain Acute Atrial fibrillation Acute Chronic Disease Mgmt/Transitional Care Acute Dehydration Acute Diarrhea Acute Gastric ulcer with hemorrhage but without obstruction Acute
[2018-06-16] MEDS: ASPIRIN 81 MG CHEWABLE TAB PO SCH (09:07)
[2018-06-16] MEDS: FUROSEMIDE 40 MG TAB PO SCH (09:07)
[2018-06-16] MEDS: ATORVASTATIN CALCIUM 40 MG TAB PO SCH (09:08)
[2018-06-16] MEDS: AMIODARONE HCL 200 MG TAB PO SCH (09:08)
[2018-06-16] MEDS: PRASUGREL HCL 10 MG TAB PO SCH (09:09)
[2018-06-16] MEDS: WARFARIN SODIUM 5 MG TAB PO SCH ×3 (09:20→16:43)
--- NOTE | 2018-06-16 09:54 | PDMN ---
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
--- NOTE | 2018-06-16 10:36 | CPEKG ---
Test Reason : OPEN Blood Pressure : / mmHG Vent. Rate : 107 BPM Atrial Rate : 000 BPM P-R Int : 067 ms QRS Dur : 099 ms QT Int : 432 ms P-R-T Axes : 012 -50 191 degrees QTc Int : 577 ms Junctional tachycardia Left anterior fascicular block Probable anterior infarct, age indeterminate Lateral leads are also involved Prolonged QT interval Confirmed by Wilbert Leigh ([id number]) on 06/16/2018 10:36:20 AM Referred By: Eden Matta Confirmed By:Wilbert Leigh
--- NOTE | 2018-06-16 10:40 | CPEKG ---
Test Reason : OPEN Blood Pressure : / mmHG Vent. Rate : 096 BPM Atrial Rate : 107 BPM P-R Int : 186 ms QRS Dur : 104 ms QT Int : 418 ms P-R-T Axes : 000 -07 201 degrees QTc Int : 529 ms Prolonged QT interval atrial fibrillation abnormal t wave inversion diffusely Confirmed by Wilbert Leigh ([id number]) on 06/16/2018 10:39:30 AM Referred By: Eden Matta Confirmed By:Wilbert Leigh
--- NOTE | 2018-06-16 10:47 | SOAPPROG ---
SOAP Progress Note Assessment/Plan: Assessment: 1. Cardiomyopathy. Her ejection fraction is estimated by echocardiography under 20% and by cardiac catheterization at 25%. This is associated with recently discovered coronary artery disease. She is status post PCI and stenting. It is not clear whether not her cardiomyopathy reflects her underlying CAD or is potentially a result of a recent trauma and subsequent stress induced cardiomyopathy. She appears to be mildly volume overloaded at the present time. Additionally, her hemodynamics appear to be a little soft. 2. Coronary artery disease status post PCI and stenting of the mid LAD. 3. Valvular heart disease. She is 12 years out from bioprosthetic mitral valve replacement which was performed in conjunction with a tricuspid annuloplasty. 4. Paroxysmal atrial fibrillation. At the time of her cardiovascular surgery she had a surgical Maze performed. She required an additional catheter ablation for recurrent atrial fibrillation in 2017. She states that since then she has not had recurrent atrial arrhythmias. As an outpatient she has been treated with amiodarone and systemic anticoagulation in the form of warfarin. INRs have been therapeutic since early April. She appears to be in atrial fibrillation at the present time with a controlled ventricular response. 5. Mild, acute systolic congestive heart failure. 6. Hypertension. As noted above, her hemodynamics have been such that her typical antihypertensive regimen has not been reinstituted. 7. Diet-controlled type 2 diabetes mellitus. 06/16/2018: Overall she appears to be stable. She appears to be fairly well compensated today. Plan: 1. She will be transitioned to her outpatient dose of p.o. Lasix 40 mg daily. 2. I have increased her amiodarone to 200 mg daily. 3. Her Coumadin has been restarted. 4. We will plan to ambulate her today and evaluate oxygen levels at rest and post ambulation. 5. She will be made NPO after midnight for planned ANGEL/cardioversion in the morning. 6. Depending on her clinical course I think that she might be able to be discharged home tomorrow. 7. We will plan to gradually reinstitute some of her outpatient medications ( Coreg, lisinopril) depending on her hemodynamics. 06/16/18 10:45 Subjective: Her clinical status is essentially unchanged. Hemodynamics have improved overnight. She did receive a single dose of IV Lasix yesterday. She has no complaints of edema and denies dyspnea at rest or during sleep. She remains in atrial fibrillation with occasional PVCs. No complex ventricular arrhythmias are noted. Objective: Vital Signs Temp Pulse Resp BP Pulse Ox 36.5 C 92 16 113/77 95 06/16/18 07:27 06/16/18 07:27 06/16/18 07:27 06/16/18 07:27 06/16/18 07:27 Laboratory Results 06/15/18 03:14 06/16/18 03:13 06/15/18 06/16/18 06/17/18 05:59 05:59 05:59 Intake Total 600 490 300 Output Total 745 Balance 600 -255 300 PT 28.8 SEC (12.0-15.0) H 06/16/18 03:13 INR 2.72 (0.83-1.16) H 06/16/18 03:13 Physical Exam - Physical Exam General Appearance: WD/WN, alert, no apparent distress EENT: PERRL/EOMI, normal ENT inspection, pharynx normal, TMs normal Neck: non-tender, full range of motion, supple, normal inspection Respiratory: chest non-tender, lungs clear, normal breath sounds Cardiac/Chest: normal peripheral pulses, irregularly irregular Peripheral Pulses: 2+: carotid (R), carotid (L), femoral (R), femoral (L), dorsalis-pedis (R), dorsalis-pedis (L) Abdomen: normal bowel sounds, non-tender, soft Pelvic Exam: deferred Rectal: deferred Back: Normal inspection Skin: normal color, warm/dry Lymphatic: no adenopathy Extremities: normal range of motion, non-tender, normal inspection, normal capillary refill Neuro/Psych: no motor/sensory deficits, alert, normal mood/affect, oriented x 3 ICD10 Worksheet Patient Problems: Problems Problem Status Onset Chest pain Acute Atrial fibrillation Acute Chronic Disease Mgmt/Transitional Care Acute Dehydration Acute Diarrhea Acute Gastric ulcer with hemorrhage but without obstruction Acute
[2018-06-16] MEDS: TEMAZEPAM 15 MG CAP PO PRN (21:59)
[2018-06-17 04:31] LABS: INR 2.37 (0.83-1.16); PROTIME(PATIENT) 25.9 SEC (12.0-15.0)
[2018-06-17] MEDS ORDERED: NS 1,000 ML IV ONE (06:00)
[2018-06-17] MEDS ORDERED: ESTRADIOL 1 MG TAB PO SCH (08:00)
[2018-06-17] MEDS: AMIODARONE HCL 200 MG TAB PO SCH (08:17)
[2018-06-17] MEDS: INSULIN LISPRO 100 UNIT/ML SC SCH ×3 (08:18→17:05)
[2018-06-17] MEDS: ASPIRIN 81 MG CHEWABLE TAB PO SCH (08:18)
[2018-06-17] MEDS: PRASUGREL HCL 10 MG TAB PO SCH (08:19)
--- NOTE | 2018-06-17 09:55 | PDANEPAE ---
ANE History of Present Illness here for ANGEL/CV ANE Past Medical History - Cardiovascular History Hx Hypertension: Yes Hx Arrhythmias: Yes Hx Chest Pain: Yes Hx Coronary Artery / Peripheral Vascular Disease: No Hx CHF / Valvular Disease: Yes Hx Palpitations: No - Pulmonary History Hx COPD: No Hx Asthma/Reactive Airway Disease: No Hx Recent Upper Respiratory Infection: No Hx Oxygen in Use at Home: Yes O2 in Use at Home (L/minute): 2 Hx Sleep Apnea: Yes - Endocrine History Hx Diabetes: Yes - Chronic Pain History Chronic Pain: No ANE Review of Systems Review of systems is: negative Review of Systems: - Exercise capacity Exercise capacity: <4 METS ANE Patient History - Allergies Allergies/Adverse Reactions: No Known Allergies Allergy (Verified 06/14/18 08:48) - Home Medications Home medications: home medication list seen and reviewed Home Medications: Estradiol [Estradiol 1 MG (*)] 1 mg PO MWF 04/19/15 [Last Taken 06/14/18] Carvedilol [Coreg (*)] 6.25 mg PO BID 09/15/16 [Last Taken 06/14/18] Warfarin Sodium [Coumadin 5MG (*)] 5 mg PO SUMOTUWETHSA 09/15/16 [Last Taken ] Amiodarone HCl [Pacerone (*)] 100 mg PO DAILY 01/09/17 [Last Taken 06/14/18] Furosemide [Lasix 40 MG (*)] 40 mg PO DAILY 01/09/17 [Last Taken 06/13/18] Lisinopril [Zestril 5 mg (*)] 5 mg PO DAILY 01/09/17 [Last Taken 06/14/18] Warfarin Sodium [Coumadin 7.5MG (*)] 7.5 mg PO FR 06/14/18 [Last Taken 06/14/18] - NPO status NPO Status: no food or drink >8 hours - Smoking Hx Smoking Status: Never smoked ANE Labs/Vital Signs - Labs Result Diagrams: 06/15/18 03:14 06/17/18 02:10 - Vital Signs Blood Pressure: 98/78 Heart Rate: 110 Respiratory Rate: 14 O2 Sat (%): 91 Height: 162.56 cm Weight: 106.5 kg ANE Physical Exam - Airway Neck exam: FROM Mallampati Score: Class 2 Mouth exam: normal dental/mouth exam - Pulmonary Pulmonary: no respiratory distress - Cardiovascular Cardiovascular: irregularly irregular - ASA Status ASA Status: IV ANE Anesthesia Plan Anesthesia Plan: GA with mask
[2018-06-17] MEDS ORDERED: PROPOFOL/EMULSION 500 MG/50 ML BOTTLE IV ONE (10:01)
--- NOTE | 2018-06-17 10:25 | POSTANESTH ---
Post Anesthetic Evaluation Cardiovascular Status: Normal, Stable Respiratory Status: Normal, Stable Level of Consciousness/Mental Status: Mildly Sleepy, Arousable Pain Control: Adequate, Prn Tx Ordered Nausea/Vomiting Control: Adequate, Prn Tx Ordered Complications Possibly Related to Anesthesia: None Noted
--- NOTE | 2018-06-17 10:34 | PDTEE1 ---
ANGEL Cardioversion Procedure Procedure: electrical cardioversion, transesophageal echo Indications: atrial fibrillation, cardiomyopathy Consent: signed and in chart Anticoagulation: warfarin Procedural Details: After consents for anesthesia, ANGEL, and possible cardioversion were obtained, the patient was positioned on the left lateral side to facilitate ANGEL placement. Vitals were monitored throughout the procedure. Heart rate was noted to be 105-110 bpm (with what appeared to be atrial flutter given the regularity of the rhythm). Anesthesia was induced without incident, and the ANGEL probe was placed with standard views obtained. Preliminary report (1) LVEF was noted to be suppressed - difficult to actually determine given shadow from the bioprosthetic mitral valve, but suppression was noted (20%) (2) Biatrial enlargement was noted with smoke present (low flow) (3) No left atrial appendage (oversewn) (4) Normally functioning bioprosthetic mitral valve without appreciable regurgitation noted (5) Trileaflet aortic valve without insufficiency or sclerosis noted (6) Moderate tricuspid regurgitation was noted (7) Physiology pulmonic insufficiency (8) No thrombus was appreciated on this study (9) Minimal atherosclerosis to the descending/transverse aorta (10) Moderate reduction in RV function was noted No complications were appreciated with the ANGEL Given a lack of thrombus, we opted to proceed with cardioversion. Synchronized cardioversion attempt #1: 200J Results: normal sinus rhythm Conclusions: successful ANGEL cardioversion Conclusion Comment: Would maintain current medical therapy as at present - specifically, ensure that warfarin/coumadin remains therapeutic for the following month (at a minimum). I spoke with the patient's family post procedure about the successful return of normal sinus rhythm and lack of complications. Patient Problems: Problems Problem Status Onset Chest pain Acute Atrial fibrillation Acute Chronic Disease Mgmt/Transitional Care Acute Dehydration Acute Diarrhea Acute Gastric ulcer with hemorrhage but without obstruction Acute
[2018-06-17] MEDS: FUROSEMIDE 40 MG TAB PO SCH (11:23)
[2018-06-17] MEDS: ATORVASTATIN CALCIUM 40 MG TAB PO SCH (11:23)
--- NOTE | 2018-06-17 12:47 | HOSPPROG ---
Hospitalist Progress Note Assessment/Plan: #I-CDM: stented yesterday. IV Lasix -Coreg 3.125mg BID. Will need OBEY-I once BP tolerates -monitor wt, I/Os, lytes #CAD: PCI to LAD. Prasugrel, ASA, statin #Atrial fibrillation: amiodarone, coumadin. Successful cardioversion. #Depressed mood: situational. Offered spiritual care, declined. Has support from her nondenominational #Diet:cardiac #Disp: inpatient admission for monitored diuresis Subjective: feels better now that back in NSR Objective: Vital Signs Temp Pulse Resp BP Pulse Ox 36.5 C 94 20 110/75 91 L 06/17/18 12:30 06/17/18 12:30 06/17/18 12:30 06/17/18 12:30 06/17/18 12:30 Laboratory Results 06/15/18 03:14 06/17/18 02:10 06/16/18 06/17/18 06/18/18 05:59 05:59 05:59 Intake Total 490 1325 Output Total 745 1700 Balance -255 -375 PT 25.9 SEC (12.0-15.0) H 06/17/18 02:10 INR 2.37 (0.83-1.16) H 06/17/18 02:10 - Time Spent With Patient Time Spent with Patient: greater than 35 minutes Time Spent with Patient: Greater than 35 minutes spent on this patients care, greater than 50% of time spent counseling, educating, and coordinating care regarding the above mentioned plan. - Physical Exam Constitutional: no apparent distress, obese Ears, Nose, Mouth, Throat: moist mucous membranes Cardiovascular: regular rate and rhythym, edema Respiratory: no respiratory distress, No inspiratory crackles Gastrointestinal: normoactive bowel sounds, soft, non-tender abdomen Genitourinary: no bladder fullness Skin: warm Musculoskeletal: full muscle strength Neurologic: AAOx3, CN II-XII Intact Psychiatric: flat affect ICD10 Worksheet Patient Problems: Problems Problem Status Onset Chest pain Acute Atrial fibrillation Acute Chronic Disease Mgmt/Transitional Care Acute Dehydration Acute Diarrhea Acute Gastric ulcer with hemorrhage but without obstruction Acute
--- NOTE | 2018-06-17 13:44 | CPEKG ---
Test Reason : OPEN Blood Pressure : / mmHG Vent. Rate : 079 BPM Atrial Rate : 079 BPM P-R Int : 184 ms QRS Dur : 099 ms QT Int : 430 ms P-R-T Axes : 084 -05 200 degrees QTc Int : 494 ms Sinus rhythm Abnormal T, consider ischemia, diffuse leads In comparison to prior ECG, atrial fib/flutter no longer noted Confirmed by Juan J Treadwell ([id number]) on 06/17/2018 1:44:24 PM Referred By: Eden Matta Confirmed By:Juan J Treadwell
--- NOTE | 2018-06-17 13:48 | ECHO ---
[email or web address] [id number] Main: [phone] Fax: Transesophageal Echocardiography Name: RACH AVENDANO MR#: [id number] Study Date: 06/17/2018 Study Time: 09:56 AM Date of : 1950 Age: 67 year(s) Height: ( ) Weight: ( ) BSA: Gender: Female Examination: ANGEL Indication: Atrial Fibrillation Image Quality: Contrast: Requested by: Fran Leyva Heart Rate: Rhythm: BP: 159 mmHg/105 mmHg Procedure Staff Global Lead: Christy Ramsay [facility] Reading Physician: Juan J Treadwell MD Requesting Provider: ANGEL Exam Details Conclusions: REFUGIO has been oversewn.. A bioprothetic mitral valve is in place. No MV prosthesis regurgitation. The aortic valve is tri-leaflet. There is no aortic valve regurgitation. Moderate tricuspid regurgitation is present. No thrombus was noted proceed with cardioversion. Measurements: Chambers Valvular Assessment AV/MV Valvular Assessment TV/PV Normal Normal Normal Name Value Range Name Value Range Name Value Range Additional Measurements: Findings: Left Atrial Appendage: REFUGIO has been oversewn.. Mitral Valve: A bioprothetic mitral valve is in place. No MV prosthesis regurgitation. Aortic Valve: Patient: RACH AVENDANO Study Date: 06/17/2018 Page 1 of 2 09:56 AM The aortic valve is tri-leaflet. There is no aortic valve regurgitation. Tricuspid Valve: Moderate tricuspid regurgitation is present. l1n (No Signature Object) (No Signature Object) Patient: RACH AVENDANO Study Date: 06/17/2018 Page 2 of 2 09:56 AM [id number]
--- NOTE | 2018-06-17 13:57 | PDCARPN ---
Cardiology Progress Note Chief Complaint: Fatigue / Atrial fibrillation Assessment/Plan: Assessment: Atrial Fibrillation-- successfully DCCV this AM. Remains in RSR. Cardiomyopathy likely takotsubo-- Will start Coreg 3.125 mg BID. Plan:Initiate Coreg 3.125 mg BID with incremental increased dose to goal of 25 mg BID if she tolerates, for the treatment of Cardiomyopathy. She was previously on 6.25 mg BID, and will increase in AM if she can tolerate. 06/17/18 13:53 Subjective: I have been up in room with no problems. Reviewed/Discussed With: family, hospitalist, multidisciplinary team Time Spent with Patient: greater than 25 minutes Time Spent with Patient: Greater than 25 minutes spent on this patients care, greater than 50% of time spent counseling, educating, and coordinating care regarding the above mentioned plan. Objective: Vital Signs (8 Hrs) Temp Pulse Resp BP Pulse Ox 06/17/18 12:30 36.5 C 94 20 110/75 91 L 06/17/18 11:17 36.4 C 79 13 107/70 93 06/17/18 10:24 110 H 14 98/78 L 91 L 06/17/18 08:00 36.5 C 110 H 14 98/78 L 91 L Intake/Output (24 Hrs) 06/16/18 06/17/18 06/18/18 05:59 05:59 05:59 Intake Total 490 1325 Output Total 745 1700 Balance -255 -375 Intake: Oral (ml) 490 1325 Output: Urine (ml) 745 1700 Toilet 745 1700 Other: Weight 106.5 kg 106.5 kg 106.5 kg Intake Quantity Yes Sufficient Number of Voids Toilet 1 Result Diagrams: 06/15/18 03:14 06/17/18 02:10 Cardiac Labs: Cardiac Lab Results (72 Hrs) 06/14/18 19:50 Troponin I 0.035 H - Physical Exam Constitutional: no apparent distress Cardiovascular: regular rate and rhythm Skin: warm, no edema Neurologic: AAOx3 Psychiatric: cooperative, interactive ICD10 Worksheet Patient Problems: Problems Problem Status Onset Diarrhea Acute Dehydration Acute Chest pain Acute Atrial fibrillation Acute Gastric ulcer with hemorrhage but without obstruction Acute Chronic Disease Mgmt/Transitional Care Acute
[2018-06-17] MEDS: WARFARIN SODIUM 5 MG TAB PO SCH (16:51)
[2018-06-17] MEDS: CARVEDILOL 3.125 MG TAB PO SCH (17:05)
[2018-06-17] MEDS ORDERED: MAGNESIUM HYDROXIDE 30 ML UDCUP PO PRN (17:54)
[2018-06-17] MEDS ORDERED: BISACODYL 10 MG SUPP PR PRN (17:54)
[2018-06-17] MEDS ORDERED: POLYETHYLENE GLYCOL 3350 17 GM PKT PO PRN (17:54)
[2018-06-17] MEDS ORDERED: LACTULOSE 20 GM/30 ML UDCUP PO PRN (17:54)
[2018-06-17] MEDS: TEMAZEPAM 15 MG CAP PO PRN (21:22)
[2018-06-17] MEDS: SENNOSIDES/DOCUSATE SODIUM TAB PO SCH (21:22)
[2018-06-17] MEDS: HYDROCODONE/APAP 5/325 TAB PO PRN (21:23)
[2018-06-18 05:14] LABS: INR 2.12 (0.83-1.16); PROTIME(PATIENT) 23.8 SEC (12.0-15.0)
[2018-06-18] MEDS: INSULIN LISPRO 100 UNIT/ML SC SCH ×2 (08:35→14:24)
[2018-06-18] MEDS: PRASUGREL HCL 10 MG TAB PO SCH (08:42)
[2018-06-18] MEDS: ATORVASTATIN CALCIUM 40 MG TAB PO SCH (08:42)
[2018-06-18] MEDS: CARVEDILOL 3.125 MG TAB PO SCH (08:42)
[2018-06-18] MEDS: SENNOSIDES/DOCUSATE SODIUM TAB PO SCH (08:42)
[2018-06-18] MEDS: AMIODARONE HCL 200 MG TAB PO SCH (08:42)
[2018-06-18] MEDS: ASPIRIN 81 MG CHEWABLE TAB PO SCH (08:42)
[2018-06-18] MEDS: FUROSEMIDE 40 MG TAB PO SCH (08:42)
[2018-06-18] MEDS: HYDROCODONE/APAP 5/325 TAB PO PRN (09:24)
[2018-06-18 11:41] VITALS: BP 96/4
--- NOTE | 2018-06-18 13:10 | PDCARPN ---
Cardiology Progress Note Assessment/Plan: Assessment: Atrial Fibrillation-- successfully DCCV this AM. Remains in RSR. Cardiomyopathy likely takotsubo-- Will start Coreg 3.125 mg BID. CAD Stent placed to LAD. On Effient. No chest pain or SOB. Plan:Initiate Coreg 3.125 mg BID with incremental increased dose to goal of 25 mg BID if she tolerates, for the treatment of Cardiomyopathy. She was previously on 6.25 mg BID, and will increase in AM if she can tolerate. 06/17/18 13:53 06/18/18 12:52 A Fib successfully converted yesterday. She remains on Eliquis BID, and Metoprolol. CAD stable s/p LAD stent. She has no chest pain or SOB. Her insurance will not cover Effient. She will switch to Plavix: Tomorrow AM she will take Plavix loading dose 600 mg, the 75 mg QD thereafter. Once her BP improves consider ACEI. She is on Lipitor now with LDL goal 70 or less. Cardiomyopathy with EF 25%/ Restarted Coreg at 3.125 mg BID. Her BP is 103/80 today. Will need to up-titrate her as outpatient. She was previously on 6.25 mg BID. Groin site is intact with no bleeding, ecchymosis, or induration. Groin site precautions reviewed verbally and written instructions provided. She understands no sitting in a tub of water, or heavy lifting or pushing greater than 10 pounds for 7 days.. She will follow up at [facility] with Dr Dangelo in one week. 06/18/18 13:12 Subjective: I feel better today. Anxious to go home. Reviewed/Discussed With: hospitalist, multidisciplinary team Time Spent with Patient: greater than 25 minutes Time Spent with Patient: Greater than 25 minutes spent on this patients care, greater than 50% of time spent counseling, educating, and coordinating care regarding the above mentioned plan. Objective: Vital Signs (8 Hrs) Temp Pulse Resp BP Pulse Ox 06/18/18 11:40 36.4 C 68 12 96/4 L 87 L 06/18/18 07:16 36.6 C 81 16 103/80 90 L Intake/Output (24 Hrs) 06/17/18 06/18/18 06/19/18 05:59 05:59 05:59 Intake Total 1325 1050 Output Total 1700 1100 Balance -375 -50 Intake: Oral (ml) 1325 1050 Output: Urine (ml) 1700 1100 Toilet 1700 1100 Other: Weight 106.5 kg 106.5 kg 105.29 kg Number of Voids Toilet 4 Result Diagrams: 06/15/18 03:14 06/18/18 03:14 - Physical Exam Constitutional: no apparent distress Cardiovascular: regular rate and rhythm, no murmurs, no rubs, no gallops Peripheral Pulses: 2+: femoral (R), dorsalis-pedis (R), dorsalis-pedis (L) Respiratory: clear to auscultate bilat, no crackles, no wheezes, reduced air movement Skin: warm, no edema Neurologic: AAOx3 Psychiatric: cooperative, interactive ICD10 Worksheet Patient Problems: Problems Problem Status Onset Chest pain Acute Atrial fibrillation Acute Chronic Disease Mgmt/Transitional Care Acute Dehydration Acute Diarrhea Acute Gastric ulcer with hemorrhage but without obstruction Acute
--- NOTE | 2018-06-18 13:34 | GDS ---
[f rep st] DISCHARGE SUMMARY DISCHARGE DIAGNOSES: 1. Atrial fibrillation, status post successful cardioversion. 2. Cardiomyopathy, likely takotsubo. 3. Coronary artery disease. CONSULTATION: Cardiology. PROCEDURE: Successful cardioversion 06/18/2018. HISTORY OF PRESENT ILLNESS: A 67-year-old female with hypertension, atrial fibrillation, valvular heart disease, chronic systolic/diastolic heart failure, presents to the ER not feeling well for several days. She rode a horse, became very short of breath and fatigued, which is unlike her. She could barely walk her horse to the barn. She has had a few episodes of left-sided dull chest pain in the last couple of weeks, lasting a couple of minutes. HOSPITAL COURSE BY PROBLEM: 1. Cardiomyopathy, EF of 14%. Underwent cardiac cath with stent to LAD. Initially started on Effient, but could not afford, so will load with Plavix tomorrow and then 75 mg thereafter. Full-dose aspirin for 1 month and baby aspirin, statin. Coreg 3.125 mg, will need OBEY-I when BP tolerated. FU with Dr. Dangelo. DC weight 105kg. Educated on low-salt diet, fluid restriction. 2. Coronary artery disease on Plavix, aspirin, and statin. 3. Atrial fibrillation. Amiodarone, Coumadin, status post successful cardioversion today. DISPOSITION: The patient is stable for discharge home. NEW MEDICATIONS: Plavix, full-dose aspirin, atorvastatin. FOLLOWUP: Dr. Dangelo June 26. PHYSICAL EXAMINATION: VITAL SIGNS: Temperature 36.4, blood pressure is 103/80 , heart rate is in 80s, respirations 16, 90% on room air. GENERAL: Obese, no acute distress. HEENT: PERRLA. Moist mucous membranes. CV: Regular rhythm. Trace lower extremity edema. LUNGS: Clear. No crackles. ABDOMEN: Soft, nontender. : No Nick. MUSCULOSKELETAL: Cath site is healing. NEURO: 2 through 12 intact. PSYCH: Alert and oriented x3. Flat affect. TIME SPENT ON DISCHARGE: Greater than 30 minutes coordinating discharge, explaining medications bedside and discussing with Cardiology. /[id number]/MODL MTDD
--- NOTE | 2018-06-18 14:50 | CPEKG ---
Test Reason : OPEN Blood Pressure : / mmHG Vent. Rate : 098 BPM Atrial Rate : 000 BPM P-R Int : 222 ms QRS Dur : 099 ms QT Int : 454 ms P-R-T Axes : 047 -03 197 degrees QTc Int : 580 ms Atrial fibrillation Low voltage, extremity leads Abnrm T, probable ischemia, anterolateral lds Minimal ST elevation, inferior leads Prolonged QT interval Similar findings to prior ECGs Confirmed by Juan J Treadwell ([id number]) on 06/18/2018 2:50:09 PM Referred By: Eden Matta Confirmed By:Juan J Treadwell
--- NOTE | 2018-06-18 15:57 | CPEKG ---
Test Reason : OPEN Blood Pressure : / mmHG Vent. Rate : 109 BPM Atrial Rate : 000 BPM P-R Int : 086 ms QRS Dur : 097 ms QT Int : 381 ms P-R-T Axes : 035 -07 196 degrees QTc Int : 514 ms Atrial flutter with predominant 2:1 AV block Abnormal T, consider ischemia, diffuse leads Prolonged QT interval Confirmed by Juan J Treawdell ([id number]) on 06/18/2018 3:57:20 PM Referred By: Eden Matta Confirmed By:Juan J Treadwell
== END 2018-06-18 14:28 | disposition home or self-care (01) | DRG 246 ==
LOC: F2W 10:55 → OBSVTOIN 14:56
PROVIDERS: ADMIT Internal Medicine; ATTEND Internal Medicine
PROC: 027034Z Dilation of Coronary Artery, One Artery with Drug-eluting Intraluminal Device, Percutaneous Approach (ICD-10-PCS; principal; 2018-06-14)
PROC: B245ZZ4 Ultrasonography of Left Heart, Transesophageal (ICD-10-PCS; 2018-06-17)
PROC: 5A2204Z Restoration of Cardiac Rhythm, Single (ICD-10-PCS; 2018-06-17)
DX: I25.10 Atherosclerotic heart disease of native coronary artery without angina pectoris (principal); I11.0 Hypertensive heart disease with heart failure; I50.43 Acute on chronic combined systolic (congestive) and diastolic (congestive) heart failure; I48.0 Paroxysmal atrial fibrillation; E11.9 Type 2 diabetes mellitus without complications; G47.30 Sleep apnea, unspecified; Z95.3 Presence of xenogenic heart valve; Z96.653 Presence of artificial knee joint, bilateral; Z90.710 Acquired absence of both cervix and uterus; Z80.0 Family history of malignant neoplasm of digestive organs; Z80.3 Family history of malignant neoplasm of breast
CPT/HCPCS: 84484-ER; 96374; C1725; C1760; C1769; C1874; C1887; C9600; G0378; J0583; J1644; J1815; J1940; J2250; J2270; J2704; J3010; Q9957; Q9967

== ENCOUNTER → 2018-06-26 | Outpatient (CLI) | payer OTHER | LOC: FIMAGING 18:09 | PROVIDERS: ATTEND Family Medicine | DX: J98.11 Atelectasis (principal); I51.7 Cardiomegaly; K44.9 Diaphragmatic hernia without obstruction or gangrene; Z98.890 Other specified postprocedural states ==

== ENCOUNTER → 2018-07-02 | Outpatient (CLI) | payer OTHER | LOC: BMCIMAGING 11:50 | PROVIDERS: ATTEND Family Medicine | DX: J98.11 Atelectasis (principal); K44.9 Diaphragmatic hernia without obstruction or gangrene ==

== ENCOUNTER → 2018-07-04 | Outpatient (CLI) | payer OTHER | LOC: BMCIMAGING 11:40 | PROVIDERS: ATTEND Family Medicine | DX: R91.8 Other nonspecific abnormal finding of lung field (principal); R05 Cough; R50.9 Fever, unspecified ==

== ENCOUNTER → 2018-07-10 | Outpatient (CLI) | payer OTHER | LOC: BMCIMAGING 15:15 | PROVIDERS: ATTEND Family Medicine | DX: J18.1 Lobar pneumonia, unspecified organism (principal); I51.7 Cardiomegaly; K44.9 Diaphragmatic hernia without obstruction or gangrene ==

== ENCOUNTER 2018-07-15 09:24 | Observation (INO) | payer OTHER ==
[2018-07-15] MEDS ORDERED: LORazepam 2 MG/ML INJ IVP ONE (09:49)
--- NOTE | 2018-07-15 09:53 | EDPHY ---
H & P Stated Complaint: tachy, sob Time Seen by Provider: 07/15/18 09:39 HPI/ROS: CHIEF COMPLAINT: Rapid heart rate HISTORY OF PRESENT ILLNESS: 67-year-old female with CAD and atrial fibrillation presents with rapid heart rate. 1 month ago she was admitted for acute coronary syndrome and diagnosed with takotsubo cardiomyopathy. An LAD stent was placed and she was cardioverted. She has been on Coumadin for years, without recent change. Onset of rapid heart rate this morning when she awoke. Associated with ongoing shortness of breath for several weeks. Slightly increased lower extremity swelling recently. No chest pain. Recent chest x- rays x3 show resolution of recent pneumonia. REVIEW OF SYSTEMS: complete 10 point ROS reviewed and is negative except for the noted elements in the HPI - Personal History Current Tetanus/Diphtheria Vaccine: Yes Current Tetanus Diphtheria and Acellular Pertussis (TDAP): Yes Tetanus Vaccine Date: < 5 years - Medical/Surgical History Hx Asthma: No Hx Chronic Respiratory Disease: No Hx Diabetes: Yes Hx Cardiac Disease: Yes Hx Renal Disease: No Hx Cirrhosis: No Hx Alcoholism: No Hx HIV/AIDS: No Hx Splenectomy or Spleen Trauma: No Other PMH: afib, arthritis, CAD, MVR, TVR, hyperlipidemia, obesity, HTN, DM, fibromyalgia, cholecystectomy, bilateral TKA, hysterectomy, GIB, anemia, CHF. sleep apnea. - Social History Smoking Status: Never smoked Alcohol Use: Sober Drug Use: None - Physical Exam Exam: General Appearance: Alert, pleasant, very anxious Eyes: Pupils equal and round, no conjunctival pallor or injection ENT, Mouth: Mucous membranes moist Neck: Normal inspection Respiratory: Lungs are clear to auscultation Cardiovascular: Regular tachycardia Gastrointestinal: Abdomen is soft and nontender Neurological: A&O, nonfocal exam Skin: Warm and dry Extremities: 2+ brawny edema Psychiatric: anxious Constitutional: Initial Vital Signs Temperature (C) 36.8 C 07/15/18 09:31 Heart Rate 108 H 07/15/18 09:31 Respiratory Rate 16 07/15/18 09:31 Blood Pressure 119/93 H 07/15/18 09:31 O2 Sat (%) 94 07/15/18 09:31 O2 Delivery Mode Nasal Cannula O2 (L/minute) 2 Allergies/Adverse Reactions: No Known Allergies Allergy (Verified 07/15/18 09:29) Home Medications: Medication Instructions Recorded Estradiol [Estradiol 1 MG (*)] 1 mg PO MWF 04/19/15 Warfarin Sodium [Coumadin 5MG (*)] 5 mg PO MOTUWEFRSA 09/15/16 Aspirin [Aspirin 325 mg (*)] 325 mg PO DAILY #30 tab 06/18/18 Atorvastatin Calcium [Lipitor 40 40 mg PO DAILY #30 tab 06/18/18 mg (*)] Carvedilol [Coreg (*)] 3.125 mg PO BIDMEAL #60 tab 06/18/18 Clopidogrel Bisulfate [Plavix] 75 mg PO DAILY #38 tablet 06/18/18 Furosemide [Lasix 40 MG (*)] 40 mg PO DAILY #30 tab 06/18/18 Nitroglycerin [Nitrostat 0.4 mg 0.4 mg SL Q5M PRN #30 btl 06/18/18 (*)] Acetaminophen [Tylenol 325mg (*)] 325 mg PO Q6 PRN 07/15/18 Albuterol [Proventil Inhaler HFA 1 - 2 puffs IH Q4H PRN 07/15/18 (*)] Amiodarone HCl [Pacerone (*)] 200 mg PO BID tab 07/15/18 Lisinopril [Zestril 10 mg (*)] 10 mg PO DAILY 07/15/18 Warfarin Sodium [Coumadin 2.5MG 2.5 mg PO SUTH 07/15/18 (*)] levOFLOXACIN [levAQUIN (*)] 750 mg PO DAILY 07/15/18 Medical Decision Making - Diagnostics EKG Interpretation: EKG interpreted by me reveals atrial flutter, ventricular rate 107, diffuse T- wave inversions. Interpretation: Abnormal EKG Imaging Results: CTA chest: no PE, cardiomegaly present Imaging: Discussed imaging studies w/ call center operator Radiologist ED Course/Re-evaluation: This patient presents in atrial flutter with significant anxiety. Ativan 0.5 mg IV given, with alleviation of anxiety. EKG reveals a flutter, rate 109, T- wave inversions. Initial troponin normal. Labs unremarkable, CXR not obtained d /t 3 recent CXR's. CTA chest ordered d/t elevated d-dimer and progressive SOB after recent treatment for pneumonia. Pt quite symptomatic with Aflutter, will need admission and consideration of cardioversion. Ate breakfast at 0830, consider cardioversion later today. The hospitalist service was consulted for admission. [facility] consulted, will see in ED. Differential Diagnosis: includes though not limited to ACS, PE, pulm edema, pneumonia, hypotension, ventricular dysrhythmia. - Data Points Laboratory Results: Laboratory Results 07/15/18 09:50 07/15/18 09:50 Medications Given: Discontinued Medications Furosemide (Lasix Injection) 20 mg IVP ONCE ONE Stop: 07/15/18 11:55 Last Admin: 07/15/18 12:27 Dose: 20 mg Amiodarone HCl (Amiodarone Hcl) 100 mls @ 600 mls/hr IV ONCE ONE Stop: 07/15/18 11:48 Last Admin: 07/15/18 11:53 Dose: 100 mls Amiodarone HCl (Amiodarone Hcl) 100 mls @ 600 mls/hr IV ONCE ONE Stop: 07/15/18 15:09 Last Admin: 07/15/18 14:12 Dose: 100 mls Lorazepam (Ativan Injection) 0.5 mg IVP EDNOW ONE Stop: 07/15/18 09:50 Last Admin: 07/15/18 10:02 Dose: 0.5 mg Point of Care Test Results: Chemistry 07/15/18 09:56 POC Troponin I 0.00 ng/mL ng/mL (0.00-0.08) Departure - Departure Disposition: [facility] Inpatient Acute Clinical Impression: Atrial flutter Qualifiers: Atrial flutter type: typical Qualified Code(s): I48.3 - Typical atrial flutter Dyspnea Qualifiers: Dyspnea type: dyspnea on exertion Qualified Code(s): R06.09 - Other forms of dyspnea Condition: Fair
[2018-07-15 10:01] LABS: PLATELET COUNT 171 10^3/uL (150-400)
[2018-07-15] MEDS ORDERED: IOPAMIDOL (ISOVUE 370) 100 ML BTL IV ONE (10:54)
[2018-07-15] MEDS ORDERED: AMIODARONE HCL 100 ML IV ONE ×2 (11:39→15:00)
[2018-07-15] MEDS ORDERED: AMIODARONE HCL 150 MG/100 ML BAG (1.5 MG/ML) IV ONE (11:43)
[2018-07-15] MEDS ORDERED: ATROPINE SULFATE 1 MG/10 ML SYR IVP ONE (11:51)
[2018-07-15] MEDS ORDERED: FUROSEMIDE 20 MG/2 ML VIAL IVP ONE (11:54)
[2018-07-15] MEDS ORDERED: ONDANSETRON DISINTEGRATING 4 MG TAB PO PRN (12:15)
[2018-07-15] MEDS ORDERED: ONDANSETRON 4 MG/2 ML VIAL IVP PRN (12:15)
[2018-07-15] MEDS ORDERED: ACETAMINOPHEN 325 MG TAB PO PRN (12:15)
--- NOTE | 2018-07-15 12:19 | PDGENHP ---
History and Physical - Chief Complaint Rapid heart rate - History of Present Illness Patient is a 67-year-old female with past medical history of congestive heart failure, Takosubo CM, mitral regurg status post bioprosthetic replacement, coronary artery disease with stent placed to the LAD June of 2018, hypertension, AFib, a flutter status post cardioversion 06/18/2018, who presented to the emergency room after noting that her heart rate was in the low 100. She says that since she had her cardioversion in June of 2018 she has been in the habit of checking her pulse. She checked her pulse this morning and noted that it was about 108-110. She says in general she has been more fatigued over the last 2-3 weeks as well but has not noticed any rapid heart rate that she can feel or any chest pain. She was recently diagnosed and treated for a pneumonia with Levaquin. she does not note any shortness of breath, worsening of her cough, orthopnea, worsening lower extremity edema or any other symptoms. History Information - Allergies/Home Medication List Allergies/Adverse Reactions: No Known Allergies Allergy (Verified 07/15/18 09:29) Home Medications: Estradiol [Estradiol 1 MG (*)] 1 mg PO MWF 04/19/15 [Last Taken 07/15/18] Warfarin Sodium [Coumadin 5MG (*)] 5 mg PO MOTUWEFRSA 09/15/16 [Last Taken 07/14] Acetaminophen [Tylenol 325mg (*)] 325 mg PO Q6 PRN 07/15/18 [Last Taken Unknown] Albuterol [Proventil Inhaler HFA (*)] 1 - 2 puffs IH Q4H PRN 07/15/18 [Last Taken Unknown] Lisinopril [Zestril 10 mg (*)] 10 mg PO DAILY 07/15/18 [Last Taken 07/15/18] Warfarin Sodium [Coumadin 2.5MG (*)] 2.5 mg PO SUTH 07/15/18 [Last Taken ] levOFLOXACIN [levAQUIN (*)] 750 mg PO DAILY 07/15/18 [Last Taken 07/15/18] I have personally reviewed and updated: family history, medical history, social history, surgical history - Past Medical History atrial fibrillation Additional medical history: Congestive heart failure, aortic valve replacement, atrial flutter, cardiomyopathy, hypertension, AFib, coronary artery disease with drug-eluting stent placed to the LAD in June 2018 - Surgical History Reports: no pertinent surgical hx - Family History Positive for: non-pertinent - Social History Smoking Status: Never smoked Alcohol Use: Sober Drug Use: None Review of Systems Review of Systems: ROS: 10pt was reviewed & negative except for what was stated in HPI & below Physical Exam Physical Exam: Temp Pulse Resp BP Pulse Ox 36.8 C 107 H 16 108/71 94 07/15/18 09:31 07/15/18 11:49 07/15/18 11:49 07/15/18 11:49 07/15/18 11:49 Constitutional: no apparent distress, appears nourished, not in pain Eyes: PERRL, anicteric sclera, EOMI Ears, Nose, Mouth, Throat: moist mucous membranes, hearing normal, ears appear normal, no oral mucosal ulcers Cardiovascular: regular rate and rhythym, no murmur, rub, or gallop, tachycardia , No edema Respiratory: no respiratory distress, no rales or rhonchi, clear to auscultation Gastrointestinal: normoactive bowel sounds, soft, non-tender abdomen, no palpable masses Genitourinary: no bladder fullness, no bladder tenderness Skin: warm, normal color, no rashes or abrasions, no fluctuance, no induration, No mottled Musculoskeletal: full muscle strength, no muscle tenderness, normal joint ROM, no joint effusions Psychiatric: interacting appropriately, not anxious, not encephalopathic, thought process linear Lymph, Heme, Immunologic: no cervical LAD, no supraclavicular LAD Lab Data & Imaging Review 07/15/18 09:50 07/15/18 09:50 WBC 5.72 10^3/uL (3.80-9.50) 07/15/18 09:50 RBC 4.13 10^6/uL (4.18-5.33) L 07/15/18 09:50 Hgb 12.3 g/dL (12.6-16.3) L 07/15/18 09:50 Hct 37.3 % (38.0-47.0) L 07/15/18 09:50 MCV 90.3 fL (81.5-99.8) 07/15/18 09:50 MCH 29.8 pg (27.9-34.1) 07/15/18 09:50 MCHC 33.0 g/dL (32.4-36.7) 07/15/18 09:50 RDW 15.5 % (11.5-15.2) H 07/15/18 09:50 Plt Count 171 10^3/uL (150-400) 07/15/18 09:50 MPV 10.5 fL (8.7-11.7) 07/15/18 09:50 Neut % (Auto) 75.0 % (39.3-74.2) H 07/15/18 09:50 Lymph % (Auto) 12.8 % (15.0-45.0) L 07/15/18 09:50 [place] % (Auto) 9.6 % (4.5-13.0) 07/15/18 09:50 Eos % (Auto) 1.6 % (0.6-7.6) 07/15/18 09:50 Baso % (Auto) 0.7 % (0.3-1.7) 07/15/18 09:50 Nucleat RBC Rel Count 0.0 % (0.0-0.2) 07/15/18 09:50 Absolute Neuts (auto) 4.29 10^3/uL (1.70-6.50) 07/15/18 09:50 Absolute Lymphs (auto) 0.73 10^3/uL (1.00-3.00) L 07/15/18 09:50 Absolute Monos (auto) 0.55 10^3/uL (0.30-0.80) 07/15/18 09:50 Absolute Eos (auto) 0.09 10^3/uL (0.03-0.40) 07/15/18 09:50 Absolute Basos (auto) 0.04 10^3/uL (0.02-0.10) 07/15/18 09:50 Absolute Nucleated RBC 0.00 10^3/uL (0-0.01) 07/15/18 09:50 Immature Gran % 0.3 % (0.0-1.1) 07/15/18 09:50 Immature Gran # 0.02 10^3/uL (0.00-0.10) 07/15/18 09:50 D-Dimer 0.80 ug/mLFEU (0.00-0.50) H 07/15/18 09:50 Sodium 137 mEq/L (135-145) 07/15/18 09:50 Potassium 4.3 mEq/L (3.5-5.2) 07/15/18 09:50 Chloride 109 mEq/L (97-110) 07/15/18 09:50 Carbon Dioxide 22 mEq/l (22-31) 07/15/18 09:50 Anion Gap 6 mEq/L (6-14) 07/15/18 09:50 BUN 37 mg/dL (7-23) H 07/15/18 09:50 Creatinine 1.2 mg/dL (0.6-1.0) H 07/15/18 09:50 Estimated GFR 45 07/15/18 09:50 Glucose 188 mg/dL (70-100) H 07/15/18 09:50 Calcium 9.5 mg/dL (8.5-10.4) 07/15/18 09:50 POC Troponin I 0.00 ng/mL (0.00-0.08) 07/15/18 09:56 NT-Pro-B Natriuret Pep 374 pg/mL (0-125) H 07/15/18 09:50 Assessment & Plan Assessment: 67-year-old female recently admitted for coronary disease with a drug-eluting stent placed to the LAD, and then cardioverted June 18 for atrial flutter now back with likely atrial flutter. Atrial flutter- I reviewed the EKG which does show likely atrial flutter. She was just cardioverted June [address] Treadwell. She is on Coumadin and amiodarone already. She is hemodynamically stable. I reviewed the CTA which shows possible pulmonary hypertension but no acute PE. I discussed the case with Cardiology who plans for tentative cardioversion later today -NPO -likely cardioversion later today -consider increasing amiodarone dose on discharge -continue Coumadin -monitor on telemetry -continue amiodarone and Coreg CHF- most recent echocardiogram showed a left ventricular ejection fraction of 14%. She appears compensated today. Has had further titration of CHF medications since this last measure of her ejection fraction. -continue Lasix, lisinopril, Coreg CAD- just had a drug-eluting stent placed to her LAD in early June 2018. On an aspirin 325, lisinopril 10, Coreg 3.25 twice daily. Should be fine to continue all of these Pneumonia- on Levaquin. Need to determine how many days she has been on this but will continue it for now. Will recheck an EKG to make sure QT isn't prolonged AFib- on amiodarone, Coumadin and Coreg. Prophylaxis- SCDs and Coumadin Fluids- NS at 75 Electrolytes- within normal limits Nutrition- NPO for cardioversion Cor-full Dispo- observation for atrial flutter with likely need for cardioversion
[2018-07-15 12:32] LABS: INR 2.91 (0.83-1.16); PROTIME(PATIENT) 28.9 SEC (12.0-15.0)
--- NOTE | 2018-07-15 14:43 | CPEKG ---
Test Reason : OPEN Blood Pressure : / mmHG Vent. Rate : 107 BPM Atrial Rate : 107 BPM P-R Int : 176 ms QRS Dur : 094 ms QT Int : 331 ms P-R-T Axes : 053 -16 180 degrees QTc Int : 442 ms Sinus tachycardia Borderline left axis deviation Repol abnrm suggests ischemia, anterolateral Confirmed by Tammy Blackwood ([id number]) on 07/15/2018 2:43:27 PM Referred By: Tammy Blackwood Confirmed By:Tammy Blackwood
--- NOTE | 2018-07-15 15:12 | ECHO ---
[email or web address] [place] [id number] Main: [phone] Fax: Transthoracic Echocardiogram Name: RACH AVENDANO MR#: [id number] Study Date: 07/15/2018 Study Time: 12:06 PM Date of : 1950 Age: 67 year(s) Height: 165.1 cm (65 in.) Weight: 99.34 kg (219 lb.) BSA: 2.06 m2 Gender: Female Examination: Limited Echo Indication: Hx of Takotsubo, Now Atrial Flutter/Fib Image Quality: Contrast: Requested by: Mikel Rivera BP: 108 mmHg/71 mmHg Heart Rate: Rhythm: Indication: Hx of Takotsubo, Now Atrial Flutter/Fib Procedure Staff Pattern Carrier: Sabino Escobar RD Reading Physician: Fran Leyva MD Requesting Provider: Conclusions: This is a technically limited study with poor acoustic windows and poor endocardial definition. The left ventricle appears to be normal in size with preserved left ventricular systolic function. Ejection fraction visually appears to be about 60%. There are no regional wall motion abnormalities however these cannot be excluded based on the quality of this study. The patient had a previous study 06/14/2018 with an ejection fraction of below 20%. Measurements: Chambers Valvular Assessment AV/MV Valvular Assessment TV/PV Normal Normal Normal Name Value Range Name Value Range Name Value Range LVDd (2D): 4.1 cm (3.9 cm-5.3 cm) LVDs (2D): 3.3 cm (2.1 cm-4 cm) LVPWd (2D): 1.3 cm ( - ) LVEF (2D): 54 (>=54 %) Visual EF: 55 % EF Range: 50-55 % Continued Measurements: Findings: Left Ventricle: The ejection fraction is estimated to be 50-55 %. The ejection fraction is visually estimated to be 55 %. Exam Comments: Patient: RACH AVENDANO Study Date: 07/15/2018 Page 1 of 2 12:06 PM (No Signature Object) Patient: RACH AVENDANO Study Date: 07/15/2018 Page 2 of 2 12:06 PM [id number]
--- NOTE | 2018-07-15 15:39 | ASMTCMCOM ---
CM Note CM Note Notes: 07/15/2018 Case Management Note Reviewed chart. Pt admitted with atrial flutter and shortness of breath. Per note by Dr. Gillis, pt may need cardioversion. There are no therapy evals ordered today. Previous discharge in Jun 2018 was independent. There are no case management d/c needs identified d/t pt age, marital status, employment status and independence with ADL's prior to admission. Case Management d/c poc: independent with follow up as directed. Case Management available if needs change. Date Signed: 07/15/2018 03:38 PM Electronically Signed By:Tiffany Beck RN
--- NOTE | 2018-07-15 15:58 | PDANEPAE ---
ANE History of Present Illness a flutter ANE Past Medical History - Cardiovascular History Hx Hypertension: Yes Hx Arrhythmias: Yes Hx Chest Pain: Yes Hx Coronary Artery / Peripheral Vascular Disease: No Hx CHF / Valvular Disease: Yes Hx Palpitations: No Cardiovascular History Comment: mitral replacement. CABG. a fib. a flutter - Pulmonary History Hx COPD: No Hx Asthma/Reactive Airway Disease: No Hx Recent Upper Respiratory Infection: No Hx Oxygen in Use at Home: Yes O2 in Use at Home (L/minute): 3 Hx Sleep Apnea: Yes - Endocrine History Hx Diabetes: Yes Hypothyroid: No Hyperthyroid: No Obesity: no - Chronic Pain History Chronic Pain: No ANE Review of Systems Review of systems is: negative Review of Systems: ANE Patient History - Allergies Allergies/Adverse Reactions: No Known Allergies Allergy (Verified 07/15/18 09:29) - Home Medications Home medications: home medication list seen and reviewed Home Medications: Estradiol [Estradiol 1 MG (*)] 1 mg PO MWF 04/19/15 [Last Taken 07/15/18] Warfarin Sodium [Coumadin 5MG (*)] 5 mg PO MOTUWEFRSA 09/15/16 [Last Taken 07/14] Acetaminophen [Tylenol 325mg (*)] 325 mg PO Q6 PRN 07/15/18 [Last Taken Unknown] Albuterol [Proventil Inhaler HFA (*)] 1 - 2 puffs IH Q4H PRN 07/15/18 [Last Taken Unknown] Lisinopril [Zestril 10 mg (*)] 10 mg PO DAILY 07/15/18 [Last Taken 07/15/18] Warfarin Sodium [Coumadin 2.5MG (*)] 2.5 mg PO SUTH 07/15/18 [Last Taken ] levOFLOXACIN [levAQUIN (*)] 750 mg PO DAILY 07/15/18 [Last Taken 07/15/18] - NPO status NPO Status: no food or drink >8 hours - Anes Hx Anes Hx: no prior problems - Smoking Hx Smoking Status: Never smoked - Alcohol Use Alcohol Use: Sober - Family Anes Hx Family Anes Hx: none ANE Labs/Vital Signs - Labs Result Diagrams: 07/15/18 09:50 07/15/18 09:50 - Vital Signs Blood Pressure: 118/88 Heart Rate: 105 Respiratory Rate: 10 O2 Sat (%): 94 Height: 165.1 cm Weight: 99.7 kg ANE Physical Exam - Airway Neck exam: FROM Mallampati Score: Class 2 Mouth exam: normal dental/mouth exam - Pulmonary Pulmonary: no respiratory distress, clear to auscultation - Cardiovascular Cardiovascular: irregularly irregular - ASA Status ASA Status: III ANE Anesthesia Plan Anesthesia Plan: GA with mask Total IV Anesthesia: Yes
[2018-07-15] MEDS ORDERED: PROPOFOL 200 MG/20 ML VIAL ONE (16:03)
[2018-07-15 17:31] VITALS: BP 92/70
--- NOTE | 2018-07-15 17:39 | PDDCSUM ---
Discharge Summary Discharge Summary: Discharge diagnosis Atrial flutter Coronary artery disease Congestive heart failure AFib Hypertension Patient is a 67-year-old female with past medical history of atrial flutter, congestive heart failure, AFib, coronary artery disease who was just cardioverted 06/14/2018 for atrial flutter. She returned to the emergency room where she was found to be in a flutter again on EKG. Cardiology was consulted who took the patient for cardioversion. She was successfully cardioverted back into normal sinus rhythm. Cardiology recommended increasing her amiodarone to 200 mg twice daily and they scheduled her for follow-up in 2 days from discharge. Post cardioversion EKG showed a normal sinus rhythm. She was discharged in good condition to follow up with her seo coordinator 06/19/2018. Disposition Home in good condition Follow-up With Dr. Dangelo is in Cardiology Clinic 06/19/2018
[2018-07-15] MEDS ORDERED: CARVEDILOL 3.125 MG TAB PO SCH (18:00)
--- NOTE | 2018-07-15 19:19 | GCON ---
[f rep st] CONSULTATION CARDIOLOGY CONSULTATION REFERRING PHYSICIAN: Tammy Blackwood MD INDICATION FOR CARDIOLOGY CONSULTATION: Atrial flutter with rapid ventricular response. HISTORY OF PRESENT ILLNESS: The patient is a 67-year-old female, who is known to our practice. She has been followed by Dr. Dangelo. She has significant past history that includes previous severe MR with history of bio mitral valve and bio tricuspid valve replacement in 2008, PAF in PAT with ablation in December 2016 , CAL on CPAP, chronic obesity, mhz-fxnsqoo-nolmeuudp diabetes, and previous lower GI bleed. The patient was recently admitted from June 14 through June 18 for angina, CHF, AFib, and reduced LVEF. She did undergo cardiac catheterization on June 15, in which she was found to have a tight 95% percent stenosis of the proximal LAD, in which JADEN stent was implanted. She also on the underwent ANGEL cardioversion on 06/17/2018, in which she was successfully converted back to sinus rhythm. On June 15, she did undergo echocardiogram, which was noted to have a global hypokinesis, with an ejection fraction of 14%. It was felt by Dr. Nguyen, wheel borer who was providing care for her during her hospitalization, that, despite finding significant LAD disease, it did not explain her global hypokinesis, and he felt that this potentially was Takotsubo cardiomyopathy. The patient was discharged home on amiodarone, carvedilol, lisinopril, warfarin, clopidogrel, and aspirin. She reported she had been feeling well until approximately 2 weeks ago when she developed fever and chills. She did see her PCP. She was diagnosed with pneumonia. She had been treated with antibiotics for approximately 2 weeks. She is uncertain what she is currently on, but she reports she has 2 more doses. She does state that she had a chest x-ray done 3 days ago and reporting that it had appeared to resolve. She had stated she had been feeling better, with no fevers, chills, or night sweats; but stating yesterday morning, awaking feeling significantly fatigued and short of breath. She did note her heart rate was elevated, but felt that it was regular. This continued for most of the day and into the night. She does state that she did sleep well, but then again woke up with the same fatigue symptoms and remained with a heart rate greater than 100 beats per minute. Due to this and recent history of hospitalization with cardiomyopathy, she decided to come into the emergency department for further evaluation. Upon arrival, electrocardiogram was done, which noted atrial flutter with a ventricular rate at 107 beats per minute. Laboratory studies drawn on admission did note a negative troponin of 0.00, but mildly elevated BNP of 374. She was also noted to have an elevated D-dimer of 0.08. CTA of the chest was done, which was negative for PEs, but did suggest pulmonary hypertension. She was quite anxious upon arrival per the emergency department services, she was given Ativan. At the time that I am seeing her, she reports she is feeling less anxious, but continues to feel fatigued. She reports no chest pain or pressure with any of her symptoms. She does report dyspnea on exertion. She denies any orthopnea, PND, significant weight gain, lightheadedness, near syncope, or syncopal events. Reporting no symptoms suggestive of TIA or CVA. She does state that she has maintained Coumadin therapy since her last cardioversion and in states that her INRs have been borderline high, but has not had any subtherapeutic levels. As mentioned above , she does state she has fevers and chills when dealing with pneumonia, but states that it has been greater than a week since any of those episodes. She denies any bleeding or issues being on triple therapy. PAST MEDICAL HISTORY: Patient with significant past history that includes valvular heart disease with severe MR and TR, questionable Takotsubo cardiomyopathy, with previous echocardiogram noting an EF of 14%; paroxysmal atrial fibrillation and paroxysmal atrial tachycardia, chronic obesity, CAL, non -insulin-dependent diabetes, history of lower GI bleed, coronary artery disease , and chronic diastolic heart failure. PAST SURGERIES: PCI with JADEN implantation of the LAD done on June 15, 2018. Bioprosthetic valve placement of mitral valve and tricuspid valve in 2008. Bilateral total knees. Total abdominal hysterectomy. Previous cardiac ablation for AFib in December 2016. FAMILY HISTORY: The patient reported maternal grandfather had colon cancer. Maternal grandmother had breast cancer. Mother committed suicide. SOCIAL HISTORY: She lives in [place] with her . 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 She occasionally uses alcohol. She denies any illicit drug or tobacco abuse. ALLERGIES: The patient has no known drug allergies. HOME MEDICATIONS: Our office records show that she is on amiodarone 200 mg once daily, aspirin 325 mg once daily, atorvastatin 40 mg p.o. daily, carvedilol 3.125 mg p.o. twice daily, Clopidogrel 75 mg p.o. daily, Lasix 40 mg p.o. daily, lisinopril 10 mg p.o. daily, nitroglycerin 0.4 mg sublingual every 5 minutes p.r.n. chest pain, and warfarin 7 mg p.o. daily. REVIEW OF SYSTEMS: A 10-point review of systems done on patient, all negative except as mentioned above. PHYSICAL EXAMINATION: GENERAL APPEARANCE: An elderly female, who is moderately obese, who is alert and oriented to person, place, time, and situation. Appears to be under no acute distress. VITAL SIGNS: Current vital signs are a blood pressure of 118/88, heart rate 105, atrial flutter on the monitor; respirations are , saturating on room air, and temperature of 36.3 degrees Celsius. HEENT: Head is normocephalic. Lips and tongue are pink and moist with no signs of cyanosis. Conjunctivae pink. NECK: Trachea is midline, +2 carotid pulses bilaterally, and no auscultated carotid bruits. Jugular vein 4 to 5 cm above sternal notch at a 45-degree angle. LUNGS: Diminished in bases with no rhonchi, rales, or wheezes. No accessory muscle use and no intercostal muscle retraction noted. CARDIAC: Tachycardic rate and regular rhythm. S1 and S2. A 2/6 systolic murmur noted along the left sternal border. ABDOMEN: Soft and nontender. Bowel sounds x4 quadrants. No organomegaly and no palpable masses. SKIN: [place], warm, and dry. EXTREMITIES: No cyanosis and no clubbing. Trace pedal edema in bilateral lower extremities. VASCULAR: +2 carotids bilateral, +2 radials bilateral, and +1 dorsal pedal and posterior tibial pulses bilateral. LABORATORY STUDIES: Laboratory studies drawn today show a WBC of 5.72 hemoglobin 12.3, hematocrit 37.3, and platelet count 171. INR was 2.91. D- dimer of 0.80. Sodium 137, potassium 4.3, chloride 109, CO2 of 22, BUN 37, creatinine 1.2, and glucose 188. Calcium 9.5 and magnesium 2.1. Troponin 0.00. ProBNP 374. STUDIES: Electrocardiogram as mentioned above. CTA of chest as mentioned above. ASSESSMENT/PLAN: 1. Atrial flutter with rapid ventricular response: Patient with known history of atrial fibrillation in the past with recent cardioversion on June 17. She has recently had pneumonia, reporting fast heart rate for last 2 days with feelings of fatigue and shortness of breath, similar symptoms with which she has had atrial fibrillation in the past. Potentially this recurrence of atrial fibrillation was due to her recent upper respiratory infection. At this time, on reviewing her records, her INRs have been therapeutic for the last month since her cardioversion. We will continue her on her home dose of carvedilol. We will increase her home dose of amiodarone to 200 mg p.o. twice daily. I would like to give her 150 mg of intravenous amiodarone now. We will repeat it at 3 p.m. If she has not converted at that time, then we will plan for her to undergo cardioversion by Dr. Leyva. Risks and benefits of the procedure were explained to the patient. She verbalizes understanding and is wanting to proceed. 2. Coronary artery disease: Patient with recent stent implantation of the left anterior descending June 15, 2018. She currently remains on dual- antiplatelet therapy of aspirin and clopidogrel. She denies any chest pain or pressure. No significant ST-T changes on that. Noted on EKG suggesting infarction, negative troponin. Continue antiplatelet as mentioned above. The patient is on atorvastatin for secondary risk prevention. 3. Cardiomyopathy: Most recent echocardiogram done on June 15 showing an ejection fraction of 14% with global hypokinesis. Repeated 2 days later during her heart catheterization, which showed an ejection fraction of 25%. Dr. Nguyen at the time felt that this was probably stress-induced cardiomyopathy ( probable Takotsubo). The patient has been on medication management for approximately 1 month. I would like to get a limited echocardiogram today to reevaluate her left ventricular systolic function. 4. Systolic heart failure: Patient recently diagnosed with a significantly reduced ejection fraction. Echocardiogram as mentioned above. BNP is elevated , but, in comparison to her previous laboratory studies, it is down significantly (on June 14 was 4940, and June 26 was 480). She does have some mild jugular venous distention. Potentially, this is induced by her atrial flutter with rapid ventricular response. She did state that she took her oral dose of Lasix today, we will give her 40 mg of intravenous Lasix now. 5. Obstructive sleep apnea: The patient will continue on continuous positive airway pressure. 6. Xyk-pydaalh-cjkgntfdc diabetes: I will defer to the hospitalist services. 7. Chronic obesity. Thank you for this consultation. We will be glad to follow along with you. /[id number]/MODL MTDD
[2018-07-15] MEDS ORDERED: AMIODARONE HCL 200 MG TAB PO SCH (21:00)
[2018-07-16] MEDS ORDERED: AMIODARONE HCL 200 MG TAB PO SCH (09:00)
[2018-07-16] MEDS ORDERED: LISINOPRIL 10 MG TAB PO SCH (09:00)
[2018-07-16] MEDS ORDERED: ATORVASTATIN CALCIUM 40 MG TAB PO SCH (09:00)
[2018-07-16] MEDS ORDERED: CLOPIDOGREL BISULFATE 75 MG TAB PO SCH (09:00)
[2018-07-16] MEDS ORDERED: FUROSEMIDE 40 MG TAB PO SCH (09:00)
[2018-07-16] MEDS ORDERED: ASPIRIN 325 MG TAB PO SCH (09:00)
[2018-07-17] MEDS ORDERED: ESTRADIOL 1 MG TAB PO SCH (08:00)
--- NOTE | 2018-07-17 12:21 | CPEKG ---
Test Reason : OPEN Blood Pressure : / mmHG Vent. Rate : 065 BPM Atrial Rate : 066 BPM P-R Int : 194 ms QRS Dur : 100 ms QT Int : 438 ms P-R-T Axes : 063 -08 168 degrees QTc Int : 456 ms Sinus rhythm Abnormal T, consider ischemia, anterior and lateral leads Confirmed by Juan J Chester ([id number]) on 07/17/2018 12:21:08 PM Referred By: Sadiq Gillis Confirmed By:Juan J Chester
--- NOTE | 2018-07-19 03:24 | CPIP ---
[f rep st] INVASIVE CARDIAC PROCEDURE DATE OF PROCEDURE: 07/15/2018 PROCEDURE: Synchronized direct current cardioversion. INDICATION: Atrial tachycardia, anticoagulation. Patient had been therapeutically anticoagulated ov er the last month on Coumadin. SPECIFICS: 1. Pads placed in anterior-posterior position. 2. 150 joules delivered x1 in a synchronized fashion with return to normal sinus rhythm. COMPLICATIONS: None. CONCLUSIONS: Status post successful synchronized DC cardioversion of atrial tachycardia. /[id number]/MODL
== END 2018-07-15 19:05 | disposition home or self-care (01) ==
LOC: F2W 12:37
PROVIDERS: ADMIT Internal Medicine; ATTEND Internal Medicine
PROC: 5A2204Z Restoration of Cardiac Rhythm, Single (ICD-10-PCS; principal; 2018-07-15)
DX: I48.92 Unspecified atrial flutter (principal); I25.10 Atherosclerotic heart disease of native coronary artery without angina pectoris; I42.9 Cardiomyopathy, unspecified; R53.83 Other fatigue; I50.42 Chronic combined systolic (congestive) and diastolic (congestive) heart failure; I13.0 Hypertensive heart and chronic kidney disease with heart failure and stage 1 through stage 4 chronic kidney disease, or unspecified chronic kidney disease; E11.9 Type 2 diabetes mellitus without complications; I35.1 Nonrheumatic aortic (valve) insufficiency; E78.5 Hyperlipidemia, unspecified; E66.9 Obesity, unspecified; Z68.36 Body mass index [BMI] 36.0-36.9, adult; M79.7 Fibromyalgia; G47.33 Obstructive sleep apnea (adult) (pediatric); N18.9 Chronic kidney disease, unspecified; Z79.01 Long term (current) use of anticoagulants; Z79.82 Long term (current) use of aspirin; Z80.3 Family history of malignant neoplasm of breast; Z95.5 Presence of coronary angioplasty implant and graft; Z95.2 Presence of prosthetic heart valve; Z96.653 Presence of artificial knee joint, bilateral
CPT/HCPCS: 71275; 92960; 93005; 93308; G0378; J0282; J1940; J2060; J2704; Q9967; 84484-ER; 96374